=== PATIENT | female | born 1965 | race Caucasian/White ===

== ENCOUNTER 2018-11-28 11:44 | Inpatient (IN) | payer MEDICAID ==
[~2018-11-28] VITALS: Ht 152.4 cm; Wt 75.9 kg
[2018-11-28 13:23] LABS: Basophils # (auto) 0.1 uL; Eosinophils # (auto) 0 uL; Eosinophils % (auto) 0.3 % (0.0-7.0); Hematocrit 35.4 % (36.0-46.0); Hemoglobin 11.2 g/dL (12.2-16.2); Lymphocytes # (auto) 3.3 uL; Lymphocytes % (auto) 27.6 % (10.0-50.0); Mean Corpuscular Hemoglobin 27.4 pg (28.0-32.0); Mean Corpuscular Hgb Conc. 31.5 g/dL (32.0-36.0); Mean Corpuscular Volume 86.7 fL (80.0-100.0); Monocytes # (auto) 1.1 uL; Monocytes % (auto) 9.1 % (0.0-12.0); Neutrophils # (auto) 7.5 uL; Nucleated Red Blood Cells % 0.2 %; Platelet Count (auto) 370 10^3/uL (140-450); Red Blood Cells 4.08 10^6/uL (4.0-5.20)
[2018-11-28 13:42] LABS: Albumin 3.3 g/dL (3.4-5.0); Calcium 8.8 mg/dL (8.5-10.1); Potassium 3.8 mmol/L (3.5-5.1)
[2018-11-28 13:46] LABS: BUN/Creatinine Ratio 23.9; Bilirubin, Total 1.5 mg/dL (0.2-1.0); Total Protein 7.8 g/dL (6.4-8.2)
[2018-11-28 17:25] LABS: Urine Bacteria NONE SEEN /hpf (None Seen); Urine Blood Negative /uL (Negative); Urine Hyaline Cast FEW /lpf (0 - 2); Urine Mucus FEW (None Seen); Urine WBC 18 /hpf (0 - 5)
[2018-11-28 17:38] LABS: Alcohol, Urine < 3.0 mg/dL (0-5); Amphetamine Screen, Urine POSITIVE (NEGATIVE); Barbiturate Scree,Urine NEGATIVE (NEGATIVE); Benzodiazephine Screen, Urine NEGATIVE (NEGATIVE); Cannabinoid Screen, Urine NEGATIVE (NEGATIVE); Cocaine Screen, Urine NEGATIVE (NEGATIVE); Opiate Scree,Urine NEGATIVE (NEGATIVE); Phencyclidine Screen, Urine NEGATIVE (NEGATIVE)
[2018-11-28] MEDS ORDERED: MORPHINE SULFATE 4 MG/ML SYR/VIAL IV ONE (17:45)
[2018-11-28] MEDS ORDERED: ONDANSETRON HCL 4 MG/2 ML VIAL IV ONE (17:45)
[2018-11-28] MEDS ORDERED: cefTRIAXone 1GM/50ML D5W 50 ML IV ONE (18:30)
[2018-11-28] MEDS ORDERED: MORPHINE SULFATE 4 MG/ML SYR/VIAL IV PRN (18:30)
[2018-11-28] MEDS ORDERED: NITROGLYCERIN 0.4 MG SL TAB SL PRN (18:30)
[2018-11-28] MEDS ORDERED: LORazepam 0.5 MG TAB PO PRN (18:30)
[2018-11-28] MEDS ORDERED: SODIUM CHLORIDE 0.9% 1,000 ML IV ONE (18:30)
[2018-11-28] MEDS ORDERED: LORazepam 2MG/ML-1ML VIAL IV ONE (18:45)
[2018-11-28 19:18] LABS: CRP High Sensitivity 5.76 mg/dL (< 0.3)
[2018-11-28] MEDS: SODIUM CHLORIDE 0.9% 1,000 ML IV SCH (20:12)
[2018-11-28] MEDS: DILTIAZEM HCL 25 MG/5 ML VIAL IV ONE ×2 (21:17→21:23)
--- NOTE | 2018-11-29 01:05 | NUR ---
Telemetry admit from ER LIDIA OTT admitted to Telemetry unit. Patient oriented to MIGUEL ANGEL GONZALES [facility], primary RN, unit, room, bed, and unit policies regarding patient care and visiting hours. Patient now on continuous telemetry monitoring, tele box #44. Patient weighed by bedscale and encouraged to call if they need something. All questions and concerns addressed, patient verbalized understanding. Bed in lowest locked position, call light within reach, side rails up x2, fall precautions in place. Will continue to monitor Q1hr and PRN.
--- NOTE | 2018-11-29 01:10 | NUR ---
MARCOS called Patient converted into A-flutter. Per patient report, no history of cardiac dysrhythmias. Will perform EKG.
[2018-11-29 01:32] VITALS: BP 137/94
[2018-11-29] MEDS ORDERED: INFLUENZA QUAD 2018-2019 0.5 ML SYRG IM ONE (01:45)
[2018-11-29] MEDS ORDERED: PNEUMOCOCCAL VACC POLYS 25 MCG/0.5 ML VIAL IM ONE (01:45)
--- NOTE | 2018-11-29 02:07 | NUR ---
Spoke with hospitalist ALTHEA Sousa updated on patient's status. EKG strip taken to be signed off, EKG strip left with ALTHEA Sousa as per his request. No new orders received at this time. Continue care.
[2018-11-29 05:00] VITALS: BP 131/72
[2018-11-29] MEDS: SODIUM CHLORIDE 0.9% 1,000 ML IV SCH ×3 (05:39→19:25)
[2018-11-29 06:56] LABS: Basophils # (auto) 0 uL; Basophils % (auto) 0.5 % (0.0-2.0); Eosinophils # (auto) 0.1 uL; Eosinophils % (auto) 0.8 % (0.0-7.0); Hematocrit 33.7 % (36.0-46.0); Hemoglobin 10.8 g/dL (12.2-16.2); Lymphocytes # (auto) 2.8 uL; Lymphocytes % (auto) 31.3 % (10.0-50.0); Mean Corpuscular Hgb Conc. 32.1 g/dL (32.0-36.0); Mean Corpuscular Volume 87.2 fL (80.0-100.0); Monocytes # (auto) 0.9 uL; Monocytes % (auto) 9.9 % (0.0-12.0); Neutrophils # (auto) 5.2 uL; Neutrophils % (auto) 57.5 % (37.0-80.0); Nucleated Red Blood Cells % 0.4 %; Platelet Count (auto) 315 10^3/uL (140-450); Red Blood Cells 3.87 10^6/uL (4.0-5.20); Red Cell Distribution Width 16.2 % (11.8-14.3)
[2018-11-29 07:11] LABS: Potassium 3.9 mmol/L (3.5-5.1)
[2018-11-29 07:29] LABS: BUN/Creatinine Ratio 25.4; Bilirubin, Total 1.2 mg/dL (0.2-1.0); Calcium 7.9 mg/dL (8.5-10.1)
--- NOTE | 2018-11-29 07:30 | NUR ---
Opening Shift Note Assuming care of patient. Patient is awake, alert, and oriented x4. Patient shows no signs or symptoms of distress or shortness of breath. Patient is resting in bed. Bed is locked and lowered with side rails up x2. Patient denies pain at this time, but states that she is thirsty. Patient is aware of her nothing by mouth status until after her procedure later this morning. Instructed patient on the plan of care and to call for assistance as needed. Call light within reach. Will continue to monitor.
--- NOTE | 2018-11-29 08:00 | NUR ---
Re: feed research technician call Tele orthopedic tech has called. Patient's heart rate was in 190s about 30 minutes ago. Patient's heart rate is now 105. Patient is resting in bed and showing no signs or symptoms of distress. Will continue to monitor.
--- NOTE | 2018-11-29 08:12 | NUR ---
Re: Radiology call Radiology called at this time. Patient will be taken down for procedure at 0830.
--- NOTE | 2018-11-29 08:48 | NUR ---
Re: Patient off Unit Patient is currently off unit for procedure.
[2018-11-29 09:00] VITALS: BP 100/65
--- NOTE | 2018-11-29 09:08 | NUR ---
Re: Call from Radiology Radiology called at this time. New orders for coagulation studies. Will put orders in per protocol STAT at this time.
[2018-11-29] MEDS ORDERED: LIDOCAINE 2%HCL (LOCAL ANESTH.) INJ 20ML MDV ONE (09:17)
[2018-11-29 09:31] LABS: INR 1.21 (0.9-1.15); Prothrombin Time 12.8 sec (9.27-12.13)
--- NOTE | 2018-11-29 09:33 | NUR ---
Re: Patient NPO Status Spoke to patient about not having anything to eat or drink. She verbalized that she has been drinking Sprite, because she was so thirsty. Reinforced that she was not to have anything by mouth. Patient verbalized understanding. Called to quality tech area and notified them of patient drinking Sprite. Was told they would notify the Radiologist and let him determine if the procedure would still take place.
--- NOTE | 2018-11-29 09:36 | NUR ---
Re: Consents Patient does not want to sign consents at this time. She verbalized that procedure was not explained to her and wants to wait to sign consents.
[2018-11-29] MEDS: cefTRIAXone 1GM/50ML D5W 50 ML IV SCH (09:57)
[2018-11-29] MEDS: PANTOPRAZOLE 40 MG TAB PO SCH (09:57)
--- NOTE | 2018-11-29 10:15 | NUR ---
Re: Patient not NPO Let transporters know that Patient had sprite this morning, also documented on the checklist when patient's NPO status began.
--- NOTE | 2018-11-29 10:18 | NUR ---
Re: Patient off Unit Patient is being taken to laboratory specialist for procedure at this time.
[2018-11-29] MEDS ORDERED: MIDAZOLAM HCL 1MG/1ML-2 ML VIAL ONE (10:59)
[2018-11-29] MEDS ORDERED: fentaNYL CITRATE 100 MCG/2 ML VL ONE (10:59)
--- NOTE | 2018-11-29 12:21 | NUR ---
Re: Report received Report received from computer lab para professional. Will bring up patient soon.
--- NOTE | 2018-11-29 12:21 | NUR ---
Re: Report Received Report received at this time. Patient will be returning to unit from laborer landscape soon.
--- NOTE | 2018-11-29 13:30 | NUR ---
Re: Patient on Unit Patient is back on unit, resting in bed with eyes closed. Patient appears to have tolerated procedure well.
--- NOTE | 2018-11-29 13:33 | NUR ---
Re: Ambulation Patient has not ambulated. Patient has been on bedrest. Addendum: 11/29/18 at 1334 by KARINA HUNT RN RN Amended: Links added.
--- NOTE | 2018-11-29 15:30 | NUR ---
Re: Page to Page to in order to receive diet for patient. Patient is NPO at this time. Patient is becoming increasingly upset about not having anything to eat or drink, gave lemon glycerin swabs to prevent dryness of the mouth.
--- NOTE | 2018-11-29 16:14 | NUR ---
Re: Ambulation Patient ambulated to bathroom at this time, however, was not observed. Addendum: 11/29/18 at 1615 by KARINA HUNT RN RN Amended: Links added.
[2018-11-29 17:00] VITALS: BP 118/78
[2018-11-29] MEDS ORDERED: ENOXAPARIN SOD 80 MG/0.8ML SYRINGE SC STA (17:16)
--- NOTE | 2018-11-29 17:25 | NUR ---
Re: A-fib reading phlebotomy support tech called to notify that patient had converted to A-fib. Notified Dr. Alfred, he verbalized understanding and said to call on-call pulp bleacher.
--- NOTE | 2018-11-29 17:35 | NUR ---
Call to [facility] Left a message for the on-call golf club assembler at this time through answering service. Person taking the message states that the on-call golf club assembler will return my call as soon as possible.
--- NOTE | 2018-11-29 18:03 | NUR ---
Re: Page to hospitalist Paged creative consultant hospitalist at this time to notify of critical ABG value that was just reported. Awaiting callback.
--- NOTE | 2018-11-29 18:20 | NUR ---
Call back from . Dr. Costa called at this time. Notified him of critical carbon dioxide value from ABGs. Dr. Costa verbalized understanding. No new orders given at this time.
--- NOTE | 2018-11-29 18:36 | NUR ---
Re: Tube Output Nephro tube has 125 mL drainage emptied at this time.
[2018-11-29] MEDS ORDERED: IOHEXOL 350 MG/ML 100ML IJ ONE (18:40)
--- NOTE | 2018-11-29 18:41 | NUR ---
Re: Tech Call Tech area has called. Ready for patient to be taken for CT angio. Will disconnect patient at this time.
--- NOTE | 2018-11-29 18:48 | NUR ---
Closing Note Patient is resting in bed at this time. Patient is aware that she will be leaving to get CT angio in a little while. Will endorse care to the shift leader RN.
[2018-11-29] MEDS: MORPHINE SULFATE 4 MG/ML SYR/VIAL IV PRN (19:42)
--- NOTE | 2018-11-29 20:03 | NUR ---
REFUSED CT SCAN ONCE PT ARRIVED IN RADIOLOGY.PT SCREAMING AND CRYING AND WANTS TO GO BACK TO HER ROOM. DIRECTOR OF FIELD SERVICE AND SECURITY ESCORTED PT VIA BED BACK TO HER ROOM.
--- NOTE | 2018-11-29 20:38 | NUR ---
HEART RATE 155 WITH TWELVE LEAD EKG DONE;HOSPITALIST NOTIFIED WITH AN ORDER FOR TWO MG CARDIZIEM TO BE GIVEN IV;AND ADMINISTERED;HEART RATE NOW 117. WILL REQUEST VOICE STUDIES DIRECTOR CONSULT FROM HOSPITALIST.
[2018-11-29 20:57] VITALS: BP 134/98
[2018-11-29 21:00] VITALS: BP 136/80
[2018-11-29] MEDS ORDERED: DILTIAZEM HCL 25 MG/5 ML VIAL IV ONE (21:00)
[2018-11-30] MEDS: MORPHINE SULFATE 4 MG/ML SYR/VIAL IV PRN (04:30)
[2018-11-30] MEDS ORDERED: HALOPERIDOL LACTATE 5 MG/ML INJ VIAL IM PRN (05:45)
[2018-11-30] MEDS ORDERED: diphenhdrAMINE HCL 50 MG/1 ML VL IV ONE (05:45)
[2018-11-30] MEDS ORDERED: HALOPERIDOL LACTATE 5 MG/ML INJ VIAL ONE (05:48)
[2018-11-30] MEDS ORDERED: diphenhdrAMINE HCL 50 MG/1 ML VL ONE (05:48)
[2018-11-30 07:03] LABS: Albumin 2.7 g/dL (3.4-5.0); Potassium 3.5 mmol/L (3.5-5.1)
[2018-11-30 07:11] LABS: BUN/Creatinine Ratio 21.3; Bilirubin, Total 1.1 mg/dL (0.2-1.0); Total Protein 6.3 g/dL (6.4-8.2)
--- NOTE | 2018-11-30 08:00 | NUR ---
RECEIVED PT RESTING SLEEPING COMFORTABLY, CALL LIGHT WITHIN REACH, SITTER AT BED SIDE, NO PAIN OR DISTRESS NOTED OR REPORTED, WILL CONTINUE TO MONITOR PT.
[2018-11-30] MEDS ORDERED: IOHEXOL 350 MG/ML 100ML IJ ONE (08:59)
[2018-11-30 09:00] VITALS: BP 112/72
[2018-11-30] MEDS: PANTOPRAZOLE 40 MG TAB PO SCH (09:42)
[2018-11-30] MEDS: SODIUM CHLORIDE 0.9% 1,000 ML IV SCH ×3 (09:46→20:25)
[2018-11-30] MEDS: cefTRIAXone 1GM/50ML D5W 50 ML IV SCH (09:46)
[2018-11-30] MEDS ORDERED: VANCOMYCIN PER PHARMACY 0 MG IV SCH (10:45)
--- NOTE | 2018-11-30 11:23 | NUR ---
RECEIVED A CALL FROM RADIOLOGY TO REPORTS CT ANGIO RESULTS OF A SMALL RT LOWER LOBE PE, CALL AND SPOKE TO DR. BARTH, DOCTOR INFORMED OF CHEST CT RESULTS, ORDERS RECEIVED TO PLACE PT ON LOVENOX 1 MG/KG Q 12 HRS AND TO MONITOR FOR BLEEDING.
[2018-11-30] MEDS ORDERED: VANCOMYCIN 1GM/250ML 250 ML IV ONE (12:30)
[2018-11-30 13:00] VITALS: BP 109/69
[2018-11-30 17:53] VITALS: BP 107/68
--- NOTE | 2018-11-30 19:30 | NUR ---
Opening Shift Note Assumed care of patient, resting, No S/S of distress/SOB or pain pt will awake in and out and sit in bed. Sitter at bedside for safety. Instructed on POC and to call for assist PRN, will continue to monitor for changes Q1hr and PRN. Bed locked and in lowest position, call light within reach. pt on 2 l NC, but pt will remove oxygen, instructed that pt needs to maintain oxygen on. reinforcement needed, will continue to monitor pt.
[2018-11-30] MEDS: ENOXAPARIN SOD 80 MG/0.8ML SYRINGE SC SCH (21:37)
--- NOTE | 2018-11-30 21:42 | NUR ---
Re: Tube Output Nephro tube has 125 mL drainage emptied at this time.
[2018-11-30] MEDS: LORazepam 2MG/ML-1ML VIAL IV PRN (21:45)
--- NOTE | 2018-11-30 21:51 | NUR ---
MRSA SWAB SENT TO LAB
[2018-11-30 22:00] VITALS: BP 109/70
--- NOTE | 2018-11-30 22:50 | NUR ---
MARCOS CALL Pt run of Vta Vitals were obtain are as following BP 110/67 HR 91 spo2 93%, when assess pt, pt was sleeping asymptomatic no complains of chest pain, pt still on 3 L NC . 12 ekg lead done stated NSR , prolonged QT, nonspecific st and t wave abnormality, possible left atrial enlargement. will notify hospitalist . will continue to monitor pt
--- NOTE | 2018-12-01 00:03 | NUR ---
ALYCE HOSPITALIST Alyced hospitalist in regards to pt run of [facility] EKG 12 lead done NSR , prolonged QT, nonspecific st and t wave abornmaility, possible left atrial enlargement per 12 lead ekg Vitals were obtain are as following BP 110/67 HR 91 spo2 93%, when assess pt, pt was sleeping asymptomatic no complains of chest pain, pt still on 3 L NC . will continue to monitor pt
[2018-12-01] MEDS: MORPHINE SULFATE 4 MG/ML SYR/VIAL IV PRN ×4 (01:11→20:32)
--- NOTE | 2018-12-01 01:53 | NUR ---
HOSPITALIST CALL BACK TELEPHONE READ BACK Lab for Magnesium Cardio Consult for run of vtach will continue to monitor pt.
[2018-12-01 02:47] LABS: Basophils # (auto) 0.1 uL; Basophils % (auto) 0.9 % (0.0-2.0); Eosinophils # (auto) 0.1 uL; Eosinophils % (auto) 1.6 % (0.0-7.0); Hematocrit 30.3 % (36.0-46.0); Hemoglobin 9.7 g/dL (12.2-16.2); Lymphocytes # (auto) 1.9 uL; Lymphocytes % (auto) 24.2 % (10.0-50.0); Mean Corpuscular Hemoglobin 28.2 pg (28.0-32.0); Mean Corpuscular Volume 88.1 fL (80.0-100.0); Monocytes # (auto) 0.7 uL; Monocytes % (auto) 9.1 % (0.0-12.0); Neutrophils % (auto) 64.2 % (37.0-80.0); Nucleated Red Blood Cells % 0.1 %; Platelet Count (auto) 210 10^3/uL (140-450); Red Blood Cells 3.44 10^6/uL (4.0-5.20); Red Cell Distribution Width 16.4 % (11.8-14.3); White Blood Cell 7.8 10^3/uL (4.4-10.8)
[2018-12-01 02:53] LABS: BUN/Creatinine Ratio 21.8; Calcium 7.5 mg/dL (8.5-10.1); Potassium 3.6 mmol/L (3.5-5.1)
[2018-12-01] MEDS: SODIUM CHLORIDE 0.9% 1,000 ML IV SCH ×3 (04:45→21:36)
[2018-12-01 05:00] VITALS: BP 124/70
--- NOTE | 2018-12-01 08:00 | NUR ---
RECEIVED PT RESTING IN BED, CALL LIGHT WITH IN REACH, SITTER AT BED SIDE, PT PLACED BACK ON IV FLUIDS, FROST DRAINING TO GRAVITY, NEPHROSTOMY DRAINING WELL TO GRAVITY, RT BACK DRESSING CLEAN AND DRY. WILL CONTINUE TO MONITOR PT.
[2018-12-01 08:30] VITALS: BP 118/72
[2018-12-01] MEDS: cefTRIAXone 1GM/50ML D5W 50 ML IV SCH (09:49)
[2018-12-01] MEDS: PANTOPRAZOLE 40 MG TAB PO SCH (09:50)
[2018-12-01] MEDS: ENOXAPARIN SOD 80 MG/0.8ML SYRINGE SC SCH ×2 (09:50→21:37)
[2018-12-01] MEDS: VANCOMYCIN 1GM/250ML 250 ML IV SCH (09:50)
[2018-12-01] MEDS: HALOPERIDOL LACTATE 5 MG/ML INJ VIAL IM PRN ×2 (10:16→18:11)
--- NOTE | 2018-12-01 10:20 | NUR ---
PATTERNMAKER BENCH AT BED SIDE, ATTEMPTED TO BLE VENOUS US, PT MOVING AROUND AND PULLING HER EXTREMITIES, PATTERNMAKER BENCH WILL ATTEMPT TO PERFORM TEST LATER.
[2018-12-01] MEDS ORDERED: POTASSIUM CHL 20 Meq TABLET PO ONE (11:45)
[2018-12-01] MEDS: MAGNESIUM SULFATE 1GM/100ML 100 ML IV SCH ×4 (12:23→15:00)
[2018-12-01] MEDS: LORazepam 2MG/ML-1ML VIAL IV PRN ×2 (13:04→20:31)
--- NOTE | 2018-12-01 14:29 | NUR ---
NUTRITION ASSESSMENT NOTES Please refer to link notes of nutrition screen form filed under the intervention section of the plan of care for further details. Est. Needs: 1450 kcal to 1800 kcal (20-25 kcal/kgBW), 58 gms to 73 gms pro (0.8-1.0 gms/kgBW). Will continue to monitor pertinent labs and reassess nutrient needs prn Thank you. Addendum: 12/01/18 at [address] Amended: Links added.
--- NOTE | 2018-12-01 15:29 | NUR ---
TORCH OPERATOR AT BED SIDE, ATTEMPTED TO DO BLE VENOUS US, PT MOVING AROUND AND PULLING HER EXTREMITIES, SITTING UP AND NOT FOLLOWING DIRECTIONS. UNABLE TO PERFORM ULTRASOUND TEST.
[2018-12-01] MEDS: POTASSIUM CHL 20MEQ/100ML 100 ML IV SCH ×2 (15:39→22:47)
--- NOTE | 2018-12-01 15:57 | NUR ---
PT MOANING AND MAKING FACIAL EXPRESSIONS OP PAIN, PT MEDICATED ORDER FOR PAIN. SITTER AT BED SIDE, WILL CONTINUE TO MONITOR PT.
[2018-12-01] MEDS ORDERED: diphenhdrAMINE HCL 50 MG/1 ML VL IV ONE (17:15)
--- NOTE | 2018-12-01 17:20 | NUR ---
CALLED HOSPITALIST AND INFORMED THAT PT IS VERY AGITATED, PT IS SCREAMING, ATTEMPTING TO GET OUT OF BED, PT ATTEMPTING TO HIT SITTER AND NURSES, HOSPITALIST INFORMED THE MEDICATIONS GIVEN AND THEIR NEXT DUE TIME, ORDERS GIVEN TO GIVE A ONE TIME DOSE OF BENADRYL 50 MG IV X1,
--- NOTE | 2018-12-01 17:50 | NUR ---
PT PULLED IV, PT AGITATED, PT ASSISTED BACK TO BED, SITTER AT BED SIDE, ATTEMPTED TO INSERT A NEW IV, PT SCREAMING, PULLING HER ARMS, AND NOT FOLLOWING DIRECTION, WILL ATTEMPT LATER.
--- NOTE | 2018-12-01 18:30 | NUR ---
CARMITA / BOYFRIEND AT BED SIDE, PT'S BOYFRIEND HELPING PT EAT, PT IS MORE RELAX, SITTER AT BED SIDE, WILL CONTINUE TO MONITOR PT.
--- NOTE | 2018-12-01 19:25 | NUR ---
Opening Shift Note Received report from Annette MURRIETA. Assumed care of patient, awake and alert, agitated and combative, pulled out the IV. Boyfriend and sitter at bedside. In moderate distress and pain. Instructed on POC and to call for assist PRN. Fall precaution measures in place, will continue to monitor for changes Q1hr and PRN.
--- NOTE | 2018-12-01 20:25 | NUR ---
IV insertion IV access obtained, via clean sterile technique by inserting 22 gauge catheter at R wrist after 2 attempt(s). IV secured properly, mittens placed as patient is very combative and pulls out IV prior. No trauma to site.
[2018-12-01 20:43] VITALS: BP 128/83
[2018-12-01 22:00] VITALS: BP 122/83
[2018-12-01] MEDS ORDERED: POTASSIUM CHL 20MEQ/100ML 100 ML IV ONE (22:46)
[2018-12-02] MEDS: VANCOMYCIN 1GM/250ML 250 ML IV SCH ×2 (03:37→21:48)
[2018-12-02] MEDS: MORPHINE SULFATE 4 MG/ML SYR/VIAL IV PRN ×3 (03:37→17:20)
[2018-12-02] MEDS: HALOPERIDOL LACTATE 5 MG/ML INJ VIAL IM PRN ×2 (04:12→23:29)
--- NOTE | 2018-12-02 04:12 | NUR ---
Patient became agitated and combative again, Haldol 2.5mg IM given. Will continue to monitor.
[2018-12-02 04:17] VITALS: BP 109/72
[2018-12-02] MEDS: SODIUM CHLORIDE 0.9% 1,000 ML IV SCH ×2 (06:14→16:18)
--- NOTE | 2018-12-02 07:10 | NUR ---
Patient resting at this time, sitter at bedside for safety. Endorsed care to Annette MURRIETA.
--- NOTE | 2018-12-02 08:00 | NUR ---
RECEIVED PT RESTING IN BED, CALL LIGHT WITHIN REACH, PT ASLEEP, SITTER AT BED SIDE, NEPHROSTOMY TUBE IN PLACE AND DRAINING, FROST DRAINING TO GRAVITY, WILL CONTINUE TO MONITOR PT.
--- NOTE | 2018-12-02 08:35 | NUR ---
PAGED HOSPITALIST TO INFORM THE HEAD CT SCAN, AWAITING CALL BACK.
[2018-12-02 09:00] VITALS: BP 143/83
[2018-12-02] MEDS: PANTOPRAZOLE 40 MG/10 ML VIAL IV SCH (09:12)
[2018-12-02] MEDS: ENOXAPARIN SOD 80 MG/0.8ML SYRINGE SC SCH ×2 (09:12→21:48)
[2018-12-02] MEDS: cefTRIAXone 1GM/50ML D5W 50 ML IV SCH (09:12)
[2018-12-02] MEDS: LORazepam 2MG/ML-1ML VIAL IV PRN ×2 (09:12→19:50)
--- NOTE | 2018-12-02 09:20 | NUR ---
DIRECTOR DIGITAL ANALYTICS AT BED SIDE TO PERFORM THE ECHO, PT MOVING AROUND, NOT FOLLOWING INSTRUCTIONS, ATTEMPTING TO GET OUT OF BED, PT UNSTEADY, AND SCREAMING, WILL MEDICATE ORDER. SITTER AT BED SIDE.
[2018-12-02 10:30] LABS: Basophils # (auto) 0.1 uL; Basophils % (auto) 0.7 % (0.0-2.0); Eosinophils # (auto) 0.1 uL; Eosinophils % (auto) 1.5 % (0.0-7.0); Hematocrit 31.1 % (36.0-46.0); Lymphocytes % (auto) 20.7 % (10.0-50.0); Mean Corpuscular Hemoglobin 28.4 pg (28.0-32.0); Mean Corpuscular Hgb Conc. 32.2 g/dL (32.0-36.0); Mean Corpuscular Volume 88.2 fL (80.0-100.0); Monocytes # (auto) 1.3 uL; Monocytes % (auto) 13.4 % (0.0-12.0); Neutrophils # (auto) 6.3 uL; Neutrophils % (auto) 63.7 % (37.0-80.0); Nucleated Red Blood Cells % 0.2 %; Platelet Count (auto) 236 10^3/uL (140-450); Red Blood Cells 3.53 10^6/uL (4.0-5.20); Red Cell Distribution Width 17.1 % (11.8-14.3); White Blood Cell 9.9 10^3/uL (4.4-10.8)
--- NOTE | 2018-12-02 10:40 | NUR ---
CALLED DR. ZARCO TO INFORM HIM THAT HE ORDERED 4 BAGS OF MAGNESIUM, 2 BAGS WERE GIVEN YESTERDAY, PT BECAME AGITATED AND PULL HER IV, AFTER THE IV WAS PLACED THE MAG ORDER AND CUSTOM MILLER WAS NOT ABLE TO GIVEN THE LAST 2 BAGS OF MAG, ORDERS RECEIVED TO PLACE THE ORDER AGAIN FOR THE OTHER 2 BAGS OF MAG.
[2018-12-02 10:52] LABS: Albumin 2.5 g/dL (3.4-5.0); Calcium 7.6 mg/dL (8.5-10.1); Potassium 3.9 mmol/L (3.5-5.1)
[2018-12-02 10:54] LABS: Hepatitis B Surface Antibody Negative
[2018-12-02 10:55] LABS: BUN/Creatinine Ratio 14.5; Bilirubin, Total 0.8 mg/dL (0.2-1.0); Total Protein 6.3 g/dL (6.4-8.2)
[2018-12-02 11:23] LABS: Hepatitis A Total Antibody Negative
[2018-12-02] MEDS: MAGNESIUM SULFATE 1GM/100ML 100 ML IV SCH ×2 (11:48→12:50)
[2018-12-02 12:47] LABS: Hepatitis B Core Total AB Negative
[2018-12-02 12:48] LABS: Hepatitis B Surface Antigen Negative (Negative); Hepatitis C Antibody Negative (Negative)
[2018-12-02 13:00] VITALS: BP 132/80
[2018-12-02 17:53] VITALS: BP 127/99
--- NOTE | 2018-12-02 19:10 | NUR ---
Opening Shift Note Received report from Annette MURRIETA. Assumed care of patient, awake but non verbal, sitter at bedside for safety. No S/S of distress/SOB or pain. Instructed on POC and to call for assist PRN, will continue to monitor for changes Q1hr and PRN.
[2018-12-02 21:44] VITALS: BP 117/85
--- NOTE | 2018-12-02 23:29 | NUR ---
Patient is awake became agitated and combative, rolling all over the bed, hitting the nurse and CNAs. Haldol IM given, will continue to monitor.
[2018-12-03] MEDS: MORPHINE SULFATE 4 MG/ML SYR/VIAL IV PRN (00:53)
[2018-12-03] MEDS: SODIUM CHLORIDE 0.9% 1,000 ML IV SCH ×4 (00:54→23:25)
[2018-12-03 04:51] VITALS: BP 112/65
--- NOTE | 2018-12-03 05:40 | NUR ---
Transfer to [facility] unit room 250b with sitter at bedside. Switched to tele box 15 but patient confused, agitated, and aggressive. Will not keep tele box on. MARCOS notified.
--- NOTE | 2018-12-03 06:51 | NUR ---
Placed patient on NPO, but unable to sign the consent for LHC as patient is confused, agitated and combative. Endorsed care to day shift RN.
[2018-12-03] MEDS: LORazepam 2MG/ML-1ML VIAL IV PRN ×3 (06:52→20:58)
--- NOTE | 2018-12-03 08:30 | NUR ---
Opening Shift Note Assumed care of patient, awake and asleep and confusion. No S/S of distress/SOB or pain. Provide a sitter at bedside, no any injuries noted. Instructed on POC and to call for assist PRN, will continue to monitor for changes Q1hr and PRN.
[2018-12-03 08:33] LABS: Basophils # (auto) 0.1 uL; Eosinophils # (auto) 0 uL; Eosinophils % (auto) 0.2 % (0.0-7.0); Hematocrit 33.1 % (36.0-46.0); Hemoglobin 10.5 g/dL (12.2-16.2); Lymphocytes # (auto) 1.2 uL; Lymphocytes % (auto) 10.4 % (10.0-50.0); Mean Corpuscular Hemoglobin 27.7 pg (28.0-32.0); Mean Corpuscular Hgb Conc. 31.7 g/dL (32.0-36.0); Mean Corpuscular Volume 87.4 fL (80.0-100.0); Monocytes # (auto) 1.6 uL; Monocytes % (auto) 13.8 % (0.0-12.0); Neutrophils # (auto) 8.5 uL; Neutrophils % (auto) 74.6 % (37.0-80.0); Nucleated Red Blood Cells % 0.3 %; Platelet Count (auto) 320 10^3/uL (140-450); Red Blood Cells 3.79 10^6/uL (4.0-5.20); Red Cell Distribution Width 17.4 % (11.8-14.3); White Blood Cell 11.4 10^3/uL (4.4-10.8)
[2018-12-03 08:51] LABS: Albumin 2.8 g/dL (3.4-5.0); Calcium 8.3 mg/dL (8.5-10.1); Potassium 4.8 mmol/L (3.5-5.1)
[2018-12-03 09:00] LABS: BUN/Creatinine Ratio 13.2; Bilirubin, Total 1.8 mg/dL (0.2-1.0); Total Protein 6.6 g/dL (6.4-8.2)
[2018-12-03] MEDS: cefTRIAXone 1GM/50ML D5W 50 ML IV SCH (09:20)
[2018-12-03] MEDS: PANTOPRAZOLE 40 MG/10 ML VIAL IV SCH (09:20)
[2018-12-03] MEDS: ENOXAPARIN SOD 80 MG/0.8ML SYRINGE SC SCH ×2 (09:21→22:09)
[2018-12-03] MEDS: HALOPERIDOL LACTATE 5 MG/ML INJ VIAL IM PRN (09:34)
[2018-12-03] MEDS ORDERED: ASPirin 81 mg TAB PO SCH (10:00)
--- NOTE | 2018-12-03 10:36 | NUR ---
IV insertion IV access obtained, via clean sterile technique by inserting 20 gauge catheter at after attempt(s) EACH ARM. IV secured properly. No trauma to site. Patient tolerated procedure well.
--- NOTE | 2018-12-03 10:55 | NUR ---
Called CARMITA (BOYFRIEND) REGARDING PATIENT HAS HEART CATH SCHEDULE TODAY. AWAITING TO CALL BACK.
--- NOTE | 2018-12-03 11:02 | NUR ---
Sinter Press Operator notified regarding consent form has not been signed.
--- NOTE | 2018-12-03 11:25 | NUR ---
paged regarding a consent form,awaiting to call back.
--- NOTE | 2018-12-03 11:26 | NUR ---
Called Boyfriend again # [phone], left a message.
[2018-12-03] MEDS ORDERED: HEPARIN IN NS 1000Units/500mL 0 ML ONE (11:48)
[2018-12-03] MEDS ORDERED: LIDOCAINE 2%HCL (LOCAL ANESTH.) INJ 20ML MDV ONE (11:48)
[2018-12-03] MEDS ORDERED: IOHEXOL 350 MG/ML 100ML IJ ONE (11:48)
--- NOTE | 2018-12-03 11:49 | NUR ---
Dr. Martinez paged again, awaiting to call back.
--- NOTE | 2018-12-03 12:16 | NUR ---
Dr. Alfred paged on the 3rd time, awaiting to call back.
--- NOTE | 2018-12-03 12:30 | NUR ---
Dr. Alfred called back and will sign consent.
--- NOTE | 2018-12-03 12:35 | NUR ---
Dr. Alfred and Dr. Villalba co-sign a consent form for heart cath.
--- NOTE | 2018-12-03 12:40 | NUR ---
Patient off unit to lock corner machine operator.
--- NOTE | 2018-12-03 13:00 | NUR ---
Patient came back to the floor, intervention has not been done regarding patient's behavior.
--- NOTE | 2018-12-03 14:36 | NUR ---
Nutrition Follow-up Notes Wt.: 74.2 kg Pt was off the floor with no family by beside. per records pt to have cardiac cath today. pt is currently confused on clear liq diet wth inadequte PO of 0% x 4 per RN doc due to pt`s mental status Est. Needs: 1450 kcal to 1800 kcal (20-25 kcal/kgBW), 58 gms to 73 gms pro (0.8-1.0 gms/kgBW). Will continue to monitor pertinent labs and reassess nutrient needs prn Labs: CREAT 1.36 H, CA 8.3 L, YASMIN 1.8 H, ALB 2.8 L Skin: Santana scale 15, mod risk, skin intact per RN doc GI: Pt has no BM reported per office clerk. PES: Altered nutrition related lab values r/t current/chronic medical condition aeb hyperglycemia, hypocapnia,hyperchloremia, elev. BUN, LFTs, hyperbilirubinemia, hypocalcemia and mod hypoalbuminemia Increased nutrient needs r.t chronic current medical condition aeb ALOC. mod hypoalbuminemia, Acute abdominal pain,Elevated liver enzymes,Clear Liquid diet Will continue to monitor PO intake, skin status, pertinent labs and weight trend. F/u in 2-3 days. Rec.: 1.) Advance gradually oral diet (Soft Low Chol, Low Fat diet) when medically appropriate. 2.) If Albumin level continues trending down, consider Prostat 1 pkt BID. 3.) Consider close supervision and feeding assistance prn during meals 4.) Refer to RD for further nutrition educ. and weight monitoring upon discharge. 5.) Continue current plan of care.
--- NOTE | 2018-12-03 15:15 | NUR ---
Dr. Martinez made aware that patient did not get heart cath.
[2018-12-03 15:19] LABS: Albumin 2.7 g/dL (3.4-5.0); Bilirubin, Direct 0.9 mg/dL (0-0.2)
[2018-12-03 15:21] LABS: Bilirubin, Total 1.8 mg/dL (0.2-1.0); Total Protein 6.5 g/dL (6.4-8.2)
[2018-12-03] MEDS ORDERED: HALOPERIDOL LACTATE 5 MG/ML INJ VIAL IV PRN (15:30)
[2018-12-03] MEDS: VANCOMYCIN 1GM/250ML 250 ML IV SCH (16:00)
--- NOTE | 2018-12-03 16:30 | NUR ---
Dr. Conte and Dr. Monreal at bedside , received new order, noted and carried out.
[2018-12-03 17:52] LABS: INR 1.72 (0.9-1.15); Prothrombin Time 17.8 sec (9.27-12.13)
--- NOTE | 2018-12-03 18:55 | NUR ---
Empty 100 ml of clear yellow fluid from nephrotomy tube.
--- NOTE | 2018-12-03 19:30 | NUR ---
PM ASSESSMENT PT AGITATED, CONFUSED, UNCOOPERATIVE. NO SOB OR DISTRESS. HOB ELEVATED. SITTER AT BEDSIDE. NEPHROSTOMY TUBE ON RT SIDE W/ BAG DRAINING VIA GRAVITY W/ YELLOW URINE. FROST CATHETER DRAINING VIA GRAVITY W/ DARK FERNY URINE. RESTRAINTS BUE W/ GOOD CIRCULATION. SAFETY PRECAUTIONS IN PLACE. WILL CONTINUE TO MONITOR.
[2018-12-03] MEDS ORDERED: LACTULOSE 20Gm/30ML SOLN PO ONE (20:30)
[2018-12-03] MEDS: PROMETHAZINE HCL 25 MG/ML 1ML IV PRN (20:59)
[2018-12-03] MEDS ORDERED: LACTULOSE 20Gm/30ML SOLN PR ONE (21:00)
[2018-12-03] MEDS ORDERED: INFLUENZA QUAD 2018-2019 0.5 ML SYRG IM ONE (21:01)
[2018-12-03 22:00] VITALS: BP 149/89
--- NOTE | 2018-12-03 22:51 | NUR ---
Pt. placed in soft restraints LIDIA OTT extremely agitated, pulling at lines or tubes. All comfort measures failed including reorientation, pain management, decreased stimuli, diversions/distractions, family involvement, and bathroom necessity. Mohamud LEAL NP notified and order for soft restraints obtained. Patient/Family educated on need for restraints, including safety precautions. Restraints placed, see Restraint assessment for further charting.
[2018-12-03] MEDS ORDERED: PNEUMOCOCCAL VACC POLYS 25 MCG/0.5 ML VIAL ONE (22:56)
[2018-12-03] MEDS ORDERED: diphenhdrAMINE HCL 50 MG/1 ML VL IV ONE (23:30)
--- NOTE | 2018-12-04 00:51 | NUR ---
CONTINUED in soft restraints TRU,LIDIA extremely agitated, pulling at lines or tubes. All comfort measures failed including reorientation, pain management, decreased stimuli, diversions/distractions, family involvement, and bathroom necessity. Restraints placed w/ good circulation, see Restraint assessment for further charting.
--- NOTE | 2018-12-04 01:14 | NUR ---
LACTULOSE TRIED A FEW TIMES WHILE PT CALM, HOWEVER SEVERAL ATTEMPTS WERE UNSUCCESSFUL D/T PT GETTING AGITATED AND PUSHING OUT RECTAL MED AND ENEMA. HOSPITALIST NOTIFIED.
[2018-12-04 05:00] VITALS: BP 157/75
[2018-12-04 05:59] LABS: Albumin 2.8 g/dL (3.4-5.0); BUN/Creatinine Ratio 17.9; Calcium 8.3 mg/dL (8.5-10.1); Potassium 4.9 mmol/L (3.5-5.1)
[2018-12-04 06:09] LABS: Bilirubin, Total 2.8 mg/dL (0.2-1.0); Total Protein 6.5 g/dL (6.4-8.2)
--- NOTE | 2018-12-04 06:57 | NUR ---
am lab results notified hospitalist everardo acosta np, of abnormal labs, states will look over chart.
[2018-12-04] MEDS ORDERED: D5W 5% 1,000 ML IV SCH (07:15)
[2018-12-04] MEDS ORDERED: LACTULOSE 20Gm/30ML SOLN PR ONE (07:15)
[2018-12-04] MEDS: MORPHINE SULFATE 4 MG/ML SYR/VIAL IV PRN ×2 (08:10→13:08)
--- NOTE | 2018-12-04 08:13 | NUR ---
paged elevator operator service SUPPLIES NEEDED TO INSERT RECTAL TUBE TO ADMINISTER LACTULOSE
[2018-12-04 08:45] VITALS: BP 131/78
[2018-12-04 08:52] VITALS: BP 131/78
--- NOTE | 2018-12-04 09:30 | NUR ---
RECTAL TUBE INSERTED PATIENT TOLERATED WELL. ADMINISTERED LACTULOSE ORDERED MD.
[2018-12-04] MEDS: cefTRIAXone 1GM/50ML D5W 50 ML IV SCH (09:47)
--- NOTE | 2018-12-04 09:52 | NUR ---
RECTAL TUBE NO LONGE Addendum: 12/04/18 at 0956 by LUAN BARLOW RN RECTAL TUBE REMOVED BY PATIENT FOLLOWING ADMINISTRATION OF GA MED PATIENT CONTINUED TO BARE DOWN AND PUSHED OUT THE TUBE, BALLOON INTACT. NO TRAUMA TO THE SITE.
[2018-12-04] MEDS: PANTOPRAZOLE 40 MG/10 ML VIAL IV SCH (10:00)
[2018-12-04 12:30] VITALS: BP 121/61
[2018-12-04] MEDS: SODIUM BICARBONATE 50ML VIAL 50 ML in SOD CHL 0.45% 1,000 ML IV SCH ×2 (13:08→23:42)
--- NOTE | 2018-12-04 13:11 | NUR ---
NG TUBE PLACED 12F NG TUBE INSERTED TO THE RIGHT NARE PATIENT TOLERATED WELL; STAT CHEST XRAY ORDERED.
[2018-12-04] MEDS: LACTULOSE 20Gm/30ML SOLN PO SCH ×5 (15:00→18:57)
--- NOTE | 2018-12-04 15:00 | NUR ---
LACTULOSE GIVEN ORDERED VIA NG TUB PATIENT TOLERATED WELL.
--- NOTE | 2018-12-04 15:00 | NUR ---
NG TUBE PLACEMENT SUCCESSFUL CONFIRMED WITH CHEST XRAY AND AUSCULTATION 12F IN RIGHT NARE AT 54CM.
--- NOTE | 2018-12-04 16:00 | NUR ---
LACTULOSE GIVEN ORDERED VIA NG TUB PATIENT TOLERATED WELL.
[2018-12-04] MEDS: ENOXAPARIN SOD 80 MG/0.8ML SYRINGE SC SCH ×2 (16:18→21:37)
[2018-12-04 17:48] VITALS: BP 117/71
--- NOTE | 2018-12-04 19:30 | NUR ---
Bowel Movement Noted Patient had large BM, hygiene care performed with complete linen change, and z-guard applied. will continue with Lactulose 30cc q8hrs per dose instruction per orders.
--- NOTE | 2018-12-04 19:35 | NUR ---
Opening Shift Note Assumed care of patient, patient lying in bed with eyes closed, does not answer questions or follows direction, oriented patient to place and situation. On room air with even and unlabored respirations. NGT to right nare secured in place. Soft restraints in place to bilateral wrist. Skin intact. Circulation WNL. Whelan intact and draining to gravity with dark melina urine. Right nephrostomy intact. IV to left FA intact and patent. IV to right wrist intact and patent infusing .45%NS with 50mL sodium bicarb at 75mL/hr. Patient turned with max assist. Patient had large BM, hygiene care performed with complete linen change and z-guard applied. Bed low locked position with side rails up x 2 and call light within reach. sitter at bedside. will continue to monitor for changes Q1hr and PRN.
--- NOTE | 2018-12-04 20:00 | NUR ---
Patient continued in soft restraints TRU,LIDIA agitated, pulling at lines and tubes medically necessary for treatment, risk for fall and non compliant with safety instructions. All comfort measures failed including reorientation, pain management, decreased stimuli, diversions/distractions, and bathroom necessity. Soft wrist restraints in place to bilateral wrist with proper fitting. Skin intact, no redness noted. Circulation assessed, positive tissue perfusion and WNL. Needs assessment met. Sitter at bedside. See Restraint assessment for further charting.
[2018-12-04 22:00] VITALS: BP 107/68
--- NOTE | 2018-12-04 22:00 | NUR ---
Patient continued in soft restraints TRU,LIDIA pulling at lines and tubes medically necessary for treatment, risk for fall and non compliant with safety instructions. All comfort measures failed including reorientation, pain management, decreased stimuli, diversions/distractions, and bathroom necessity. Soft wrist restraints in place to bilateral wrist with proper fitting. Skin intact, no redness noted. Circulation assessed, positive tissue perfusion and WNL. Needs assessment met. Sitter at bedside. See Restraint assessment for further charting.
[2018-12-05] MEDS: MORPHINE SULFATE 4 MG/ML SYR/VIAL IV PRN ×2 (01:25→21:54)
--- NOTE | 2018-12-05 01:57 | NUR ---
Patient has converted to Sinus rhythm in 90s. Addendum: 12/06/18 at 0226 by JOHN PAUL PARSONS RN Wrong time. Disregard
[2018-12-05] MEDS ORDERED: LACTULOSE 20Gm/30ML SOLN PO SCH ×3 (03:30→12:00)
[2018-12-05 05:03] VITALS: BP 123/58
[2018-12-05 05:08] LABS: Basophils # (auto) 0.1 uL; Eosinophils # (auto) 0.2 uL; Eosinophils % (auto) 1.2 % (0.0-7.0); Hematocrit 32.6 % (36.0-46.0); Hemoglobin 10.1 g/dL (12.2-16.2); Lymphocytes # (auto) 2.8 uL; Mean Corpuscular Hemoglobin 27.6 pg (28.0-32.0); Mean Corpuscular Volume 88.8 fL (80.0-100.0); Monocytes # (auto) 0.9 uL; Monocytes % (auto) 6.3 % (0.0-12.0); Neutrophils # (auto) 10.7 uL; Neutrophils % (auto) 72.5 % (37.0-80.0); Nucleated Red Blood Cells % 0.2 %; Platelet Count (auto) 227 10^3/uL (140-450); Red Blood Cells 3.67 10^6/uL (4.0-5.20); White Blood Cell 14.8 10^3/uL (4.4-10.8)
[2018-12-05 05:40] LABS: BUN/Creatinine Ratio 28.6; Calcium 7.9 mg/dL (8.5-10.1)
--- NOTE | 2018-12-05 07:30 | NUR ---
Closing Note Patient lying in bed with eyes closed. On room air with even and unlabored respirations. NGT to right nare secured in place. Soft restraints in place to bilateral wrist. Patient agitated, kicking, risk for fall and attempting to get out of bed, non compliant with safety instructions. Skin intact. Circulation WNL. Whelan intact and draining to gravity with dark melina urine. Right nephrostomy intact. IV to left FA intact and patent. IV to right wrist intact and patent infusing .45%NS with 50mL sodium bicarb at 75mL/hr. Patient turned with max assist. Bed low locked position with side rails up x 2 and call light within reach. sitter at bedside. Endorsed care to day shift LIT Marquez.
--- NOTE | 2018-12-05 08:00 | NUR ---
Patient on soft wrist restraints note. LIDIA OTT very confused,restless pulling out IV, non compliant with treatment regimen. All comfort measures failed including reorientation, pain management, decreased stimuli, diversions/distractions, family involvement, and bathroom necessity. Patient on wrist restraints as ordered. Patient/Family educated on need for restraints, including safety precautions. Sitter at bedside. Restraints placed, see Restraint assessment for further charting.
[2018-12-05 09:00] VITALS: BP 156/94
[2018-12-05 09:23] LABS: Albumin 2.6 g/dL (3.4-5.0); Bilirubin, Direct 0.9 mg/dL (0-0.2)
[2018-12-05 09:32] LABS: Bilirubin, Total 1.6 mg/dL (0.2-1.0); Total Protein 6.1 g/dL (6.4-8.2)
[2018-12-05] MEDS: PANTOPRAZOLE 40 MG/10 ML VIAL IV SCH (09:52)
[2018-12-05] MEDS: ENOXAPARIN SOD 80 MG/0.8ML SYRINGE SC SCH ×2 (09:52→21:04)
[2018-12-05] MEDS: cefTRIAXone 1GM/50ML D5W 50 ML IV SCH (09:53)
--- NOTE | 2018-12-05 10:00 | NUR ---
Pt on continuous soft wrist restraints note. TRU,LIDIA restless/agitated, trying to get out of the bed, pulling out of lines and tubes, fall risk, non-compliant with treatment. All comfort measures failed including reorientation, pain management, decreased stimuli, diversions/distractions, family involvement, and bathroom necessity. Patient on continuous bilateral soft wrist restraints, skin assessment done dry and intact, with good tissue perfusion including safety precautions. Sitter at bedside. See Restraint assessment for further charting.
[2018-12-05] MEDS: LORazepam 2MG/ML-1ML VIAL IV PRN ×2 (10:46→23:53)
--- NOTE | 2018-12-05 11:15 | NUR ---
Patient very restless still, HR-150's-170's. Unable to do EKG on her due to agitation. Paged Dr. Alfred and returned call. Orders received. May give another dose of Ativan 1mg IV. Will continue care.
[2018-12-05] MEDS ORDERED: LORazepam 2MG/ML-1ML VIAL IV ONE (11:30)
--- NOTE | 2018-12-05 12:00 | NUR ---
Pt on continuous soft wrist restraints note. TRU,LIDIA restless/agitated, trying to get out of the bed, fall risk, non compliant with treatment plan. All comfort measures failed including reorientation, pain management, decreased stimuli, diversions/distractions, and bathroom necessity. Checked bilateral wrist restraints no skin breakdown, tissue perfusion good, including safety precautions. Sitter at bedside. See Restraint assessment for further charting.
--- NOTE | 2018-12-05 12:19 | NUR ---
HR-130's-140's after administration of 2nd dose of Ativan 1mg IV. Dr. Alfred made aware. As soon as the patient calms down. Will do EKG. Will continue to monitor.
[2018-12-05 13:00] VITALS: BP 137/98
--- NOTE | 2018-12-05 14:00 | NUR ---
Pt on continuous soft wrist restraints note. TRU,LIDIA agitated/restless, pulling out lines and tubes, kicking on the bed (siderails padded), trying to get out of the bed. All comfort measures failed including reorientation, pain management, decreased stimuli, diversions/distractions, family involvement, and bathroom necessity. Skin intact on bilateral wrist with good tissue perfusion, including safety precautions. See Restraint assessment for further charting.
--- NOTE | 2018-12-05 14:15 | NUR ---
EKG done. AFIB with RVR-131bpm. Paged Dr. Alfred. Waiting for call back.
--- NOTE | 2018-12-05 14:35 | NUR ---
Dr. Alfred returned call, updated on result of EKG. Orders received. Patient is for Amiodarone drip per protocol. supervisor blood Monica informed since Amiodarone drip is not a Telemetry protocol. Instructions received from Monica to call back Dr. Alfred if he wanted administration of Amiodarone 150mg IV bolus then convert to PO. No available [facility] bed at this time.
--- NOTE | 2018-12-05 14:38 | NUR ---
Nutrition Follow-up Notes Wt.: 76.4 kg Pt`s confused with mild restraints on, HEAD TENNIS PROFESSIONAL by beside. per HEAD TENNIS PROFESSIONAL pt is refusing to eating/drink, not very alert. pt is currently confused on clear liq diet with inadequate PO of 0% x 4 per RN doc Est. Needs: 1450 kcal to 1800 kcal (20-25 kcal/kgBW), 43-58 gms pro (0.6-0.8 gms/kgBW). Will continue to monitor pertinent labs and reassess nutrient needs prn. reassessed as ammonia trending up Labs: AMMONIA 67 H, BUN 44 H, CREAT 1.54 H, CA 7.9 L., ALB 2.8 L. Skin: Santana scale 17, mod risk, skin intact per RN doc GI: Pt hd 9 BM yesterday per planer feeder. PES: Altered nutrition related lab values r/t current/chronic medical condition aeb hyperglycemia, hypocapnia,hyperchloremia, elev. BUN, LFTs, hyperbilirubinemia, hypocalcemia and mod hypoalbuminemia Increased nutrient needs r.t chronic current medical condition aeb ALOC. mod hypoalbuminemia, Acute abdominal pain,Elevated liver enzymes,Clear Liquid diet Will continue to monitor PO intake, skin status, pertinent labs and weight trend. F/u in 2-3 days. Rec.: 1.) Advance gradually oral diet (Soft Low Chol, Low Fat diet) when medically appropriate. 2.) If Albumin level continues trending down, consider Prostat 1 pkt BID. 3.) Consider close supervision and feeding assistance prn during meals 4.) Refer to RD for further nutrition educ. and weight monitoring upon discharge. 5.) Consider alternate nutrition support if pt continues to refuse PO. 6) Continue current plan of care.
--- NOTE | 2018-12-05 14:45 | NUR ---
Paged Dr. Alfred regarding administration of Amiodarone drip. Waiting for call back.
[2018-12-05] MEDS: D5W 5% 1,000 ML IV SCH ×2 (15:30→21:04)
--- NOTE | 2018-12-05 15:45 | NUR ---
Re-paged Dr. Alfred regarding AFIB. Waiting for call back
[2018-12-05] MEDS ORDERED: AMIODARONE HCL 150 MG in D5W 5% 100 ML IV ONE ×2 (16:00→22:45)
--- NOTE | 2018-12-05 16:00 | NUR ---
Pt on continuous soft wrist restraints note. TRULIDIA agitated/restless, getting out of bed, fall risk. All comfort measures failed including reorientation, pain management, decreased stimuli, diversions/distractions, family involvement, and bathroom necessity. Bilateral wrist restraints assessed, skin intact with good tissue perfusion, including safety precautions. Sitter at bedside. See Restraint assessment for further charting.
[2018-12-05 17:00] VITALS: BP 145/104
--- NOTE | 2018-12-05 17:24 | NUR ---
Amiodarone 150mg IV bolus administered as ordered. Will continue to monitor.
--- NOTE | 2018-12-05 17:50 | NUR ---
HR-130's. Will continue to monitor.
--- NOTE | 2018-12-05 18:00 | NUR ---
Pt on continuous soft wrist restraints note. TRULIDIA agitated/restless, getting out of bed, trying to pull out lines and tubes, fall risk. All comfort measures failed including reorientation, pain management, decreased stimuli, diversions/distractions. Bilateral wrist restraints assessed, skin intact with good tissue perfusion, including safety precautions. Sitter at bedside. See Restraint assessment for further charting.
--- NOTE | 2018-12-05 19:10 | NUR ---
Patient HR-150's to 160's paged hospitalist conformal pad former thru PBX. Waiting for call back.
--- NOTE | 2018-12-05 19:16 | NUR ---
Gave reports to production shift supervisor RN. Awaiting hospitalist call back re: ELIER.
--- NOTE | 2018-12-05 19:16 | NUR ---
Closing notes Gave reports to [place] RN, patient is restless/agitated on bilateral soft wrist restraints renewal of the order due at 2250. Skin intact with good tissue perfusion. With sitter at a bedside. See restraints assessment on the chart for further documentation.
--- NOTE | 2018-12-05 19:18 | NUR ---
Opening Shift Note Assumed care of patient who is unresponsive and agitated at this time. Patient has soft restraints to her bilateral wrists at this time. Circulation and SKIN WNL. Bed is in lowest position and locked. Call light within reach. Board updated. Sitter at bedside. D5 infusing at 100 mls/hr.Negrete catheter secured to leg with securement device and negrete bag is hung below bladder to non-moveable surface of bedframe. Will continue to monitor for changes Q1hr and PRN.
--- NOTE | 2018-12-05 20:00 | NUR ---
Patient continued in soft restraints Patient agitated, pulling at lines and tubes medically necessary for treatment, risk for fall and non compliant with safety instructions. All comfort measures failed including reorientation, pain management, decreased stimuli, diversions/distractions, and bathroom necessity. Soft wrist restraints in place to bilateral wrist with proper fitting. Skin intact, no redness noted. Circulation assessed, positive tissue perfusion and WNL. Needs assessment met. Sitter at bedside. See Restraint assessment for further charting.
--- NOTE | 2018-12-05 20:45 | NUR ---
Spoke to ALTHEA Sousa about continued A-Fib with RVR. ALTHEA Sousa ordered Cardizem 10 mg IV push once to be given now.
[2018-12-05] MEDS ORDERED: DILTIAZEM HCL 25 MG/5 ML VIAL IV ONE ×2 (20:46→21:00)
[2018-12-05 20:51] VITALS: BP 149/105
[2018-12-05] MEDS: LACTULOSE 20Gm/30ML SOLN PO SCH (21:03)
[2018-12-05] MEDS: AMIODARONE HCL 200 MG TAB PO SCH (21:04)
[2018-12-05 21:40] VITALS: BP 149/105
--- NOTE | 2018-12-05 22:45 | NUR ---
Spoke to hospitalist and notified him that patient's HR is in 150s at this time, BP is 142/102b with an MAP of 118, Pulse ox: 99% on 2 l/min NC. ALTHEA Sousa ordered transfer to [facility] and begin Amiodarone drip per protocol.
[2018-12-05] MEDS ORDERED: AMIODARONE HCL 900 MG in DEXTROSE 500 ML IV SCH (22:50)
[2018-12-05] MEDS ORDERED: AMIODARONE HCL (50 MG/ ML) 3 ML VIAL IV ONE (22:57)
--- NOTE | 2018-12-05 22:58 | NUR ---
IV insertion IV access obtained, via clean technique by inserting a 22 gauge catheter into a vein in the left wrist after 2 attempts. IV secured properly. No trauma to site. Patient tolerated well.
--- NOTE | 2018-12-05 23:18 | NUR ---
Entry Level Civil Engineer educated me on how to administer Amiodarone.
--- NOTE | 2018-12-06 | NUR ---
Patient continued in soft restraints Patient continues to be agitated, pulling at lines and tubes medically necessary for treatment, risk for fall and non compliant with safety instructions. All comfort measures failed including reorientation, pain management, decreased stimuli, diversions/distractions, and bathroom necessity. Soft wrist restraints in place to bilateral wrist with proper fitting. Skin intact, no redness noted. Circulation assessed, positive tissue perfusion and WNL. Needs assessment met. Sitter at bedside. See Restraint assessment for further charting.
[2018-12-06] MEDS: MORPHINE SULFATE 4 MG/ML SYR/VIAL IV PRN ×3 (01:34→18:35)
--- NOTE | 2018-12-06 01:57 | NUR ---
Patient has converted to Sinus rhythm in 90s.
[2018-12-06] MEDS ORDERED: AMIODARONE HCL 900 MG in DEXTROSE 500 ML IV SCH (04:50)
[2018-12-06 05:48] VITALS: BP 130/87
--- NOTE | 2018-12-06 06:48 | NUR ---
IV insertion IV access obtained, via clean technique by inserting a 22 gauge catheter into the left wrist after 1 attempt. IV secured properly. No trauma to site. Patient tolerated well.
--- NOTE | 2018-12-06 07:37 | NUR ---
Closing Note Patient lying in bed with eyes closed. NGT to right nare secured in place. Soft restraints in place to right wrist only now. Patient sleeping at this moment but has been agitated, non compliant with safety instructions most of evening and morning. Skin intact. Circulation WNL. Whelan intact and draining to gravity with dark melina urine. Right nephrostomy intact. Bed low in locked position with side rails up x 2 and call light within reach. Sitter at bedside. Endorsed care to day shift LIT Bryant.
--- NOTE | 2018-12-06 08:00 | NUR ---
RECEIVED PT RESTING IN BED, CALL LIGHT WITH IN REACH, PT HAS BEEN ATTEMPTING TO PULL LINES AND NGT, PT IS AT FALL RISK AND IS NON COMPLIANT WITH INSTRUCTIONS, PT ON SOFT RT WRIST RESTRAIN AND MITTEN ON LT HAND, RT AND LT WRIST SKIN INTACT. PT CLEAN AND DRY AFTER A BM, PT TURNED AND REPOSITION, SITTER AT BED SIDE, WILL CONTINUE TO MONITOR PT.
[2018-12-06] MEDS ORDERED: LORazepam 2MG/ML-1ML VIAL IV PRN (08:15)
[2018-12-06 09:00] VITALS: BP 125/70
[2018-12-06] MEDS: PANTOPRAZOLE 40 MG/10 ML VIAL IV SCH (09:37)
[2018-12-06] MEDS: cefTRIAXone 1GM/50ML D5W 50 ML IV SCH (09:37)
[2018-12-06] MEDS: LACTULOSE 20Gm/30ML SOLN PO SCH ×2 (09:38→21:59)
[2018-12-06] MEDS: ENOXAPARIN SOD 80 MG/0.8ML SYRINGE SC SCH ×2 (09:38→21:58)
[2018-12-06] MEDS: AMIODARONE HCL 200 MG TAB PO SCH ×2 (10:00→21:58)
--- NOTE | 2018-12-06 10:00 | NUR ---
PT CALM AND RELAXED, PT SLEEPING COMFORTABLY, CALL LIGHT WITHIN REACH, SITTER AT BED SIDE, RELEASED SOFT RT RESTRAIN. WILL CONTINUE TO MONITOR PT.
[2018-12-06] MEDS: D5W 5% 1,000 ML IV SCH ×2 (10:14→18:01)
[2018-12-06 11:24] LABS: Calcium 7.5 mg/dL (8.5-10.1); Potassium 4.6 mmol/L (3.5-5.1)
[2018-12-06 11:26] LABS: BUN/Creatinine Ratio 23.9
--- NOTE | 2018-12-06 11:31 | NUR ---
PT MOANING, MOVING AROUND AND HAVING FACIAL EXPRESSIONS OF PAIN, WILL MEDICATE PT ORDER.
[2018-12-06 11:37] LABS: Albumin 2.7 g/dL (3.4-5.0); Bilirubin, Direct 1.3 mg/dL (0-0.2)
[2018-12-06 11:39] LABS: Bilirubin, Total 2.3 mg/dL (0.2-1.0); Total Protein 6.6 g/dL (6.4-8.2)
[2018-12-06 13:00] VITALS: BP 129/82
--- NOTE | 2018-12-06 13:05 | NUR ---
PT TAKEN TO RADIOLOGY FOR HEAD CT.
--- NOTE | 2018-12-06 13:28 | NUR ---
PT BACK FROM RADIOLOGY.
--- NOTE | 2018-12-06 14:03 | NUR ---
CALLED AND SPOKE TO DR. MCKEON /NEPHROLOGY, DOCTOR INFORMED THAT THERE IS NO URINE OUTPUT IN FROST CATHETER AND ONLY 20 ML OF URINE OUTPUT ON NEPHROSTOMY SINCE 729, ORDERS TO IRRIGATE FROST AND TO ORDER A KIDNEY ULTRASOUND.
--- NOTE | 2018-12-06 14:40 | NUR ---
BLADDER SCAN DONE, OBTAIN 58 ML OF URINE IN BLADDER SCAN, ATTEMPTED TO IRRIGATE THE FROST RESISTANCE MET, REMOVED OLD FROST CATHETER, DEFLATED THE BALLOON, FROST CATHETER TIP INTACT, INSERTED A NEW FROST CATHETER, OBTAIN 50 ML OF CLEAR YELLOW URINE AFTER INSERTION. WILL CONTINUE TO MONITOR PT.
--- NOTE | 2018-12-06 16:10 | NUR ---
DR. JONES AT BED SIDE TO SEE PT, DOCTOR INFORMED THAT PT IS ON AMIODARONE DRIP THAT WILL SOON FINISHED, DOCTOR ALSO INFORMED THAT PT HAS HAD LOW URINE OUT PUT, THAT DR. MCKEON/NEPHROLOGY INFORMED, AND THAT PT HAS BEEN SINUS RHYTHM ON , PER DR. JONES CONTINUE WITH PO AMIODARONE, DO URINE AND BLOOD OSMOLALITY.
--- NOTE | 2018-12-06 16:39 | NUR ---
assessment Patient is a 52 year old female who is confused. Patient unable to accept resources for her meth use. Addendum: 12/06/18 at [place] by Macy HOOVER Amended: Links added.
[2018-12-06 17:00] VITALS: BP 145/82
--- NOTE | 2018-12-06 17:15 | NUR ---
CALLED AND SPOKE TO DR. JONES TO ASK IF PT SHOULD STILL CONTINUE TO TRANSFER TO [facility], PER DR. JONES PT CAN STAY ON THE TELE FLOOR. CHARGE NURSE INFORMED.
--- NOTE | 2018-12-06 19:20 | NUR ---
Opening Shift Note Assumed care of patient, unresponsive but not agitated. Mittens on bilateral hands. Sitter at bedside. D5 infusing at 125 ml/hr. Bed is in lowest position and locked. Call light within reach. Board updated. No S/S of distress/SOB. Tele box number matches monitor and leads are in correct position. Will continue to monitor for changes Q1hr and PRN.
[2018-12-06 22:00] VITALS: BP 128/86
[2018-12-07] MEDS: MORPHINE SULFATE 4 MG/ML SYR/VIAL IV PRN ×3 (00:56→17:14)
[2018-12-07] MEDS: D5W 5% 1,000 ML IV SCH ×2 (02:54→19:00)
[2018-12-07 04:50] VITALS: BP 130/79
[2018-12-07 07:04] LABS: Basophils # (auto) 0.1 uL; Basophils % (auto) 0.5 % (0.0-2.0); Eosinophils # (auto) 0 uL; Eosinophils % (auto) 0.3 % (0.0-7.0); Lymphocytes # (auto) 2.2 uL; Lymphocytes % (auto) 20.4 % (10.0-50.0); Mean Corpuscular Hemoglobin 27.5 pg (28.0-32.0); Mean Corpuscular Hgb Conc. 31.3 g/dL (32.0-36.0); Mean Corpuscular Volume 87.6 fL (80.0-100.0); Monocytes # (auto) 1.4 uL; Monocytes % (auto) 12.8 % (0.0-12.0); Neutrophils # (auto) 7.2 uL; Nucleated Red Blood Cells % 0.6 %; Platelet Count (auto) 187 10^3/uL (140-450); Red Blood Cells 3.65 10^6/uL (4.0-5.20); Red Cell Distribution Width 17.9 % (11.8-14.3); White Blood Cell 10.8 10^3/uL (4.4-10.8)
[2018-12-07 07:44] LABS: Anion Gap 7 (5-15); Carbon Dioxide 22 mmol/L (21-32); Chloride 123 mmol/L (98-107); Potassium 3.6 mmol/L (3.5-5.1); Sodium 152 mmol/L (136-145)
[2018-12-07 07:45] LABS: Blood Urea Nitrogen 52 mg/dL (7-18); Calcium 7.3 mg/dL (8.5-10.1); GFR African American 32 mL/min; GFR Non-African American 27 mL/min; Glucose 137 mg/dL (74-106)
[2018-12-07] MEDS: LORazepam 2MG/ML-1ML VIAL IV PRN ×2 (08:00→12:00)
[2018-12-07 09:00] VITALS: BP 116/72
[2018-12-07] MEDS: LACTULOSE 20Gm/30ML SOLN PO SCH ×2 (10:00→22:23)
[2018-12-07 10:26] LABS: Protein, Urine 59.9 mg/dL (0.0-11.9)
[2018-12-07 11:05] LABS: Albumin 2.6 g/dL (3.4-5.0); Bilirubin, Direct 1.3 mg/dL (0-0.2)
[2018-12-07 11:14] LABS: Total Protein 6.2 g/dL (6.4-8.2)
[2018-12-07] MEDS: D5W 5% IV SCH ×2 (13:39→22:23)
[2018-12-07] MEDS: cefTRIAXone 1GM/50ML D5W 50 ML IV SCH (13:39)
[2018-12-07] MEDS: SODIUM BICARBONATE IV SCH ×2 (13:39→22:23)
[2018-12-07] MEDS: POTASSIUM CHLORIDE IV SCH ×2 (13:39→22:23)
[2018-12-07] MEDS: ENOXAPARIN SOD 80 MG/0.8ML SYRINGE SC SCH ×2 (13:39→22:24)
[2018-12-07] MEDS: PANTOPRAZOLE 40 MG/10 ML VIAL IV SCH (13:39)
[2018-12-07] MEDS: AMIODARONE HCL 200 MG TAB PO SCH ×2 (13:40→22:24)
[2018-12-07] MEDS: PROMETHAZINE HCL 25 MG/ML 1ML IV PRN (15:37)
[2018-12-07 17:00] VITALS: BP 127/71
--- NOTE | 2018-12-07 19:24 | NUR ---
Opening Shift Note Assumed care of patient, unresponsive but not agitated. Mittens on bilateral hands. Sitter at bedside. D5 with 50 ml of sodium bicarbonate and 10 mEq of KCL infusing at 100 ml/hr. Bed is in lowest position and locked. Call light within reach. Board updated. No S/S of distress/SOB. Tele box number matches monitor and leads are in correct position. Will continue to monitor for changes Q1hr and PRN.
[2018-12-07 22:00] VITALS: BP 106/73
[2018-12-08] MEDS: MORPHINE SULFATE 4 MG/ML SYR/VIAL IV PRN ×4 (00:02→19:03)
[2018-12-08] MEDS: LORazepam 2MG/ML-1ML VIAL IV PRN ×4 (00:35→22:21)
--- NOTE | 2018-12-08 01:30 | NUR ---
Ordered Chest X-Ray per protocol to confirm NG tube placement after patient ripped out NG tube earlier today at approximately 1300, per day shift RN and new NG tube was placed. Patient has poor gag reflex and some congestion in her upper airway. Air auscultated in in stomach region when assessed.
[2018-12-08] MEDS: D5W 5% 1,000 ML IV SCH (02:15)
[2018-12-08 05:00] VITALS: BP 121/71
[2018-12-08] MEDS: D5W 5% IV SCH (06:34)
[2018-12-08] MEDS: SODIUM BICARBONATE IV SCH (06:34)
[2018-12-08] MEDS: POTASSIUM CHLORIDE IV SCH (06:34)
[2018-12-08 07:28] LABS: Calcium 6.9 mg/dL (8.5-10.1); Potassium 3.2 mmol/L (3.5-5.1)
[2018-12-08 07:38] LABS: Albumin 2.3 g/dL (3.4-5.0); BUN/Creatinine Ratio 25.6; Bilirubin, Total 2.8 mg/dL (0.2-1.0); Total Protein 5.6 g/dL (6.4-8.2)
--- NOTE | 2018-12-08 08:00 | NUR ---
Pt resting quietly, calm. V.S.S., resp even, unlabored. Hand mittens maintained due to pt's tendency to pull at IV, negrete, and NG tube. Sitter maintained for pt's safety.
[2018-12-08 09:48] VITALS: BP 146/95
[2018-12-08] MEDS: PANTOPRAZOLE 40 MG/10 ML VIAL IV SCH (10:00)
[2018-12-08] MEDS: ENOXAPARIN SOD 80 MG/0.8ML SYRINGE SC SCH ×2 (10:30→22:22)
--- NOTE | 2018-12-08 10:30 | NUR ---
Pt very agitated, thrashing about with all extremities. Pt is none verbal, and does not open eyes. Pt appears to have no awareness of self, time, place or situation. Ativan IV given at this time.
[2018-12-08] MEDS: LACTULOSE 20Gm/30ML SOLN PO SCH ×2 (10:34→22:22)
[2018-12-08] MEDS: AMIODARONE HCL 200 MG TAB PO SCH ×2 (10:35→22:21)
[2018-12-08] MEDS ORDERED: POTASSIUM PHOSPHATE 44 MEQ in D5W 5% 250 ML IV ONE (10:45)
--- NOTE | 2018-12-08 11:30 | NUR ---
Pt continues to be agitated, thrashing about, and moaning. IV Morphine given at this time for apparent discomfort.
[2018-12-08] MEDS: SODIUM BICARBONATE 50ML VIAL 50 ML, POTASSIUM CHLORIDE 20 MEQ in D5W 5% 1,000 ML IV SCH ×2 (12:18→22:22)
[2018-12-08 12:45] VITALS: BP 130/85
--- NOTE | 2018-12-08 14:00 | NUR ---
Pt calm, resting quietly. Pt appears to be in no pain or discomfort.
--- NOTE | 2018-12-08 17:45 | NUR ---
Ativan given for agitation and thrashing about
--- NOTE | 2018-12-08 19:00 | NUR ---
Pt continues to be extremely agitation, and moaning. Morphine given for apparent discomfort.
--- NOTE | 2018-12-08 19:18 | NUR ---
Assumed care of patient who is unresponsive. Bed is in lowest position and locked. Call light within reach. Board updated.Sitter at bedside. Whelan catheter secured to leg with securement device and bag is hung below bladder to non-moveable part of bedframe. Tele box number matches monitor and leads are in correct placement. Fluids infusing at ordered rate. Will continue to monitor every hour and PRN.
[2018-12-08 22:00] VITALS: BP 117/71
[2018-12-09] MEDS: MORPHINE SULFATE 4 MG/ML SYR/VIAL IV PRN ×4 (00:18→17:46)
[2018-12-09 05:52] VITALS: BP 91/62
[2018-12-09] MEDS: LORazepam 2MG/ML-1ML VIAL IV PRN ×4 (06:08→21:41)
[2018-12-09 07:20] LABS: INR 1.49 (0.9-1.15); Prothrombin Time 15.6 sec (9.27-12.13)
[2018-12-09 07:21] LABS: Albumin 2.1 g/dL (3.4-5.0); Calcium 6.5 mg/dL (8.5-10.1); Magnesium 1.9 mg/dL (1.6-2.6); Potassium 3.6 mmol/L (3.5-5.1)
--- NOTE | 2018-12-09 07:30 | NUR ---
Opening Shift Note Assumed care of patient. Patient is verbally unresponsive, but awake with eyes closed. Patient exhibiting signs of distress buy thrashing legs and arms about in bed. IV in right hand 22 gauge asymptomatic, intact, patent, and infusing D5 with Bicarb 50 mL and 10 meQ of potassium. Whelan catheter patent and draining clear gold yellow urine to gravity. Bed locked and in lowest position, and sitter is at bedside for 24 hour monitoring and supervision of patient. Instructed on POC and to call for assist PRN, and patient was unable to verbalize understanding. Will continue to monitor for changes Q1hr and PRN.
[2018-12-09 07:45] LABS: Bilirubin, Total 3.8 mg/dL (0.2-1.0); Total Protein 5.7 g/dL (6.4-8.2)
[2018-12-09] MEDS: SODIUM BICARBONATE 50ML VIAL 50 ML, POTASSIUM CHLORIDE 20 MEQ in D5W 5% 1,000 ML IV SCH ×2 (07:57→23:39)
[2018-12-09 08:10] VITALS: BP 129/74
--- NOTE | 2018-12-09 08:30 | NUR ---
DR. KASPER AT BEDSIDE.
[2018-12-09] MEDS: PANTOPRAZOLE 40 MG/10 ML VIAL IV SCH (10:00)
[2018-12-09] MEDS: LACTULOSE 20Gm/30ML SOLN PO SCH ×2 (10:00→23:39)
[2018-12-09] MEDS: AMIODARONE HCL 200 MG TAB PO SCH ×2 (10:00→23:39)
[2018-12-09] MEDS: ENOXAPARIN SOD 80 MG/0.8ML SYRINGE SC SCH ×2 (10:00→23:39)
[2018-12-09] MEDS ORDERED: POTASSIUM PHOSPHATE 44 MEQ in D5W 5% 250 ML IV ONE (10:15)
[2018-12-09 11:02] VITALS: BP 128/72
--- NOTE | 2018-12-09 12:00 | NUR ---
IV removal LEFT AC IV DC'd with sterile technique, catheter fully intact. Pressure dressing applied to site. Patient tolerated procedure well.
--- NOTE | 2018-12-09 12:12 | NUR ---
Nutrition Follow-up Notes Wt.: 76.4 kg Pt`s confused with mild restraints on, GLOVE TURNER by beside. per GLOVE TURNER pt is refusing to eating/drink, not very alert. pt is currently confused on clear liq diet with inadequate PO of 0% x 2 days per RN doc Est. Needs: 1450 kcal to 1800 kcal (20-25 kcal/kgBW), 72-86 gms pro (1.0-1.2 gms/kgBW). Will continue to monitor pertinent labs and reassess nutrient needs prn. reassessed as Ammonia wnl Labs: BUN 19 H, CREAT 1.12 H, CA 6.5 L, YASMIN 3.8 H, ALB 2.1 L. Skin: Santana scale 17, mod risk, skin intact per RN doc GI: Pt hd 3 BM yesterday diarr per physical medicine teacher. PES: Altered nutrition related lab values r/t current/chronic medical condition aeb hyperglycemia, hypocapnia,hyperchloremia, elev. BUN, LFTs, hyperbilirubinemia, hypocalcemia and mod hypoalbuminemia Increased nutrient needs r.t chronic current medical condition aeb ALOC. mod hypoalbuminemia, Acute abdominal pain,Elevated liver enzymes,Clear Liquid diet Will continue to monitor PO intake, skin status, pertinent labs and weight trend. F/u in 2-3 days. Rec.: 1.) Advance gradually oral diet (Soft Low Chol, Low Fat diet) when medically appropriate. 2.) If Albumin level continues trending down, consider Prostat 1 pkt BID. 3.) Consider close supervision and feeding assistance prn during meals 4.) Refer to RD for further nutrition educ. and weight monitoring upon discharge. 5.) Consider alternate nutrition support if pt continues to refuse PO. 6) Continue current plan of care.
[2018-12-09 16:26] VITALS: BP 123/69
[2018-12-09 17:50] LABS: BUN/Creatinine Ratio 14.9; Calcium 6.2 mg/dL (8.5-10.1); Potassium 4.1 mmol/L (3.5-5.1)
--- NOTE | 2018-12-09 19:00 | NUR ---
Opening Shift Note Assumed care of agitated patient, not alert, not oriented. Sitter on bedside. Instructed sitter on POC and to call for assist PRN, will continue to monitor for changes Q1hr and PRN.
[2018-12-09 21:20] VITALS: BP 124/73
--- NOTE | 2018-12-09 22:00 | NUR ---
Paged hospitalist for orders. Pt getting more agitated, pulling on wires and tubes,.
--- NOTE | 2018-12-09 22:15 | NUR ---
Received orders from hospitalist.
[2018-12-09] MEDS: diphenhdrAMINE HCL 50 MG/1 ML VL IV ONE (22:31)
[2018-12-09] MEDS: HALOPERIDOL LACTATE 5 MG/ML INJ VIAL IM ONE (22:32)
[2018-12-10] MEDS: HALOPERIDOL LACTATE 5 MG/ML INJ VIAL IM ONE (00:20)
[2018-12-10] MEDS: diphenhdrAMINE HCL 50 MG/1 ML VL IV ONE (00:20)
--- NOTE | 2018-12-10 00:20 | NUR ---
HALDOL 5 MG IM AND BENADRYL 25 IV GIVEN
[2018-12-10] MEDS: LORazepam 2MG/ML-1ML VIAL IV PRN ×4 (04:10→20:06)
[2018-12-10 05:26] VITALS: BP 112/85
[2018-12-10 07:20] LABS: Albumin 2.3 g/dL (3.4-5.0); Calcium 7.4 mg/dL (8.5-10.1); Potassium 3.6 mmol/L (3.5-5.1)
[2018-12-10 07:23] LABS: BUN/Creatinine Ratio 14.3; Bilirubin, Total 4.3 mg/dL (0.2-1.0); Phosphorus 1.9 mg/dL (2.5-4.90); Total Protein 5.8 g/dL (6.4-8.2)
--- NOTE | 2018-12-10 08:00 | NUR ---
opening shift note Assumed care for unresponsive patient to verbal commands. Patient is agitated, restless,thrashing around bed. Tried to reorientate, unsuccessful. NG tube to right nares, placement verified auscultation and air bolus. Tele number 12 sinus rhythm at 85 bpm. IV on right hand 22g patent and infusing sodium bicarb with potassium at 100 ml/hr. IV is intact, clean and dry. Nephrostomy drain to right flank draining clear, yellow urine to gravity. Whelan is below waist draining clear, yellow urine. Bilateral soft mittens to both hands due to patient pulling at lines. Vascular status assessed and WNL. Safety maintained and sitter is bedside. Bed locked and in lowest position and call light within reach.
[2018-12-10 08:55] VITALS: BP 137/76
--- NOTE | 2018-12-10 10:00 | NUR ---
Safety Patient is Unresponsive to verbal commands. Patient is agitated, restless, and thrashing. Patient was unsuccessfully reoriented. Patient has bilateral mittens due to trying to pull out lines. Patient vascular status assessed to bilateral wrist and WNL. Sitter is bedside for patient safety. Bed in lowest position and call light in reach.
--- NOTE | 2018-12-10 10:30 | NUR ---
Rounds Dr. Villalba at bedside for patient rounds. Patient is restless, agitated, and thrashing. New orders received and followed through. Sitter remains at bedside for patient safety. Bed in lowest position and call light is within reach.
[2018-12-10] MEDS: ENOXAPARIN SOD 80 MG/0.8ML SYRINGE SC SCH ×2 (10:33→22:02)
[2018-12-10] MEDS: PANTOPRAZOLE 40 MG/10 ML VIAL IV SCH (10:33)
[2018-12-10] MEDS: AMIODARONE HCL 200 MG TAB PO SCH ×2 (12:00→22:02)
--- NOTE | 2018-12-10 12:00 | NUR ---
Safety Patient is unresponsive to verbal commands. Attempted to orient patient and was unsuccessful. Patient is restless and thrashing in bed. Patient has bilateral mittens due to trying to pull out lines. Vascular status assessed and WNL. Sitter is bedside for safety. Bed is in lowest position and call light is within reach.
[2018-12-10 13:00] VITALS: BP 138/90
[2018-12-10] MEDS ORDERED: POTASSIUM PHOSPHATE 44 MEQ in D5W 5% 250 ML IV ONE (14:00)
--- NOTE | 2018-12-10 14:00 | NUR ---
Safety Patient is unresponsive to verbal commands. Patient was unsuccessfully reoriented. Patient thrashing, restless and agitated. Mittens on bilateral hands due to patient trying to pull out lines. Vascular status assessed and WNL. Patient pulled out IV in right hand by thrashing in bed. Sitter is bedside for safety. Call light is within reach and bed is in lowest position.
--- NOTE | 2018-12-10 15:45 | NUR ---
TELE PSYCH Tele Psych consult placed and completed. Dr Knight consulting. Per Dr Knight, he will send over recommendations via fax. Patient remains agitated, thrashing in the bed, kicking legs over the side rails, despite numerous attempts to reorient. Bilateral soft wrist mittens in place, vascular status assessed, WNL. Sitter remains at bedside for patient safety.
[2018-12-10] MEDS: LACTULOSE 20Gm/30ML SOLN PO SCH ×2 (15:50→22:02)
--- NOTE | 2018-12-10 15:54 | NUR ---
IV removal IV DC'd to right wrist with clean sterile technique, catheter fully intact after patient turned to side and tubing got caught on bedside rail, pressure dressing applied to site. Patient tolerated well. IV insertion IV access obtained, via clean sterile technique by inserting 22 gauge catheter at the right forearm after 2 attempt(s). IV secured properly. No trauma to site. Patient tolerated procedure well.
--- NOTE | 2018-12-10 16:05 | NUR ---
re-assessment Patient remains confused. I have left a message for patients sig other Naun [phone] to return my call. Addendum: 12/10/18 at 1606 by Macy HOOVER Amended: Links added.
[2018-12-10 16:33] VITALS: BP 145/83
--- NOTE | 2018-12-10 16:44 | NUR ---
SAFETY Patient continues to thrash in bed, flinging legs outside of bed rails. Despite reorientation, patient continues to remains non-responsive to verbal and tactile stimuli. Bilateral soft hand mittens in place for patient safety to prevent patient from pulling at lines and NGT. Bed locked, in lowest position, call light within reach, sitter remains at bedside.
--- NOTE | 2018-12-10 19:18 | NUR ---
Care endorsed to LIT Shrestha, night nurse.
[2018-12-10 22:00] VITALS: BP 150/92
[2018-12-11] MEDS: LORazepam 2MG/ML-1ML VIAL IV PRN ×4 (00:30→20:22)
[2018-12-11] MEDS: D5W 5% 1,000 ML IV SCH ×2 (03:27→03:28)
[2018-12-11 05:03] VITALS: BP 143/95
--- NOTE | 2018-12-11 07:24 | NUR ---
CARE ENDORSED TO DAY RN. SITTER AT BEDSIDE.
--- NOTE | 2018-12-11 08:00 | NUR ---
Opening Shift Note Assumed care of patient, awake, agitated, thrashing in bed, flinging both legs around, over both side rails. No S/S of SOB. Bilateral soft wrist mittens in place, vascular status assessed, left hand swollen, + 2 dependent pitting edema noted, mitten removed, skin intact, hand elevated on pillow to decrease edema, right hand vascular stats WNL, mitten remains on for patient safety. Right flank nephrostomy tube draining clear, yellow urine to gravity, dressing clean, dry and intact. Urethral Whelan catheter draining light melina urine to gravity. Rash to periarea, pictures taken, Zguard applied. Right ankle abrasion noted with small serosanguineous drainage noted, Optifoam dressing applied, left ankle abrasion with blanchable redness, Optifoam placed, pictures taken, wound care and dietary order placed. Instructed on POC and to call for assist PRN, unable to comprehend, sitter remains at bedside for patient safety, will continue to monitor for changes Q1hr and PRN.
--- NOTE | 2018-12-11 08:17 | NUR ---
NEUROLOGY FOLLOW UP Dr Conte at bedside for Neurology follow up, new orders received and followed through. Patent remains in bilateral wrist mittens to prevent patient from pulling at lines and NGT. Sitter remains at bedside for patient safety.
[2018-12-11 08:18] VITALS: BP 150/79
[2018-12-11 08:34] LABS: Basophils # (auto) 0.1 uL; Basophils % (auto) 0.9 % (0.0-2.0); Eosinophils # (auto) 0.1 uL; Eosinophils % (auto) 1.1 % (0.0-7.0); Hematocrit 35.1 % (36.0-46.0); Hemoglobin 11.2 g/dL (12.2-16.2); Lymphocytes # (auto) 2.5 uL; Lymphocytes % (auto) 19.4 % (10.0-50.0); Mean Corpuscular Hemoglobin 27.1 pg (28.0-32.0); Mean Corpuscular Hgb Conc. 31.9 g/dL (32.0-36.0); Monocytes # (auto) 1.8 uL; Monocytes % (auto) 14.1 % (0.0-12.0); Neutrophils # (auto) 8.5 uL; Neutrophils % (auto) 64.5 % (37.0-80.0); Nucleated Red Blood Cells % 0.1 %; Platelet Count (auto) 212 10^3/uL (140-450); Red Blood Cells 4.13 10^6/uL (4.0-5.20); Red Cell Distribution Width 17.9 % (11.8-14.3); White Blood Cell 13.1 10^3/uL (4.4-10.8)
[2018-12-11 08:55] LABS: Albumin 2.5 g/dL (3.4-5.0); Calcium 7.8 mg/dL (8.5-10.1); Potassium 3.7 mmol/L (3.5-5.1)
[2018-12-11 08:58] LABS: BUN/Creatinine Ratio 10.1; Bilirubin, Total 4.5 mg/dL (0.2-1.0); Total Protein 6.5 g/dL (6.4-8.2)
[2018-12-11] MEDS: MORPHINE SULFATE 4 MG/ML SYR/VIAL IV PRN ×3 (09:30→22:07)
--- NOTE | 2018-12-11 09:30 | NUR ---
PAIN MANAGEMENT Morphine administered for facial grimacing and thrashing in the bed.
--- NOTE | 2018-12-11 09:40 | NUR ---
Patient now calm, right hand mitten removed, vascular status remains WNL. Sitter remains at bedside for patient safety.
--- NOTE | 2018-12-11 09:45 | NUR ---
Patient now calm, no more thrashing in bed, V/S WNL, respirations even and non-labored. Sitter remains at bedside for patient safety.
[2018-12-11] MEDS: AMIODARONE HCL 200 MG TAB PO SCH ×2 (09:59→22:07)
--- NOTE | 2018-12-11 10:00 | NUR ---
NEPHROLOGY Dr Patel at bedside for Nephrology follow up, new orders received and followed through. Patient resting with eyes closed, no thrashing around in bed since Morphine was given IV. Sitter remains at bedside for patient safety. Bed locked, in lowest position, call light within reach, will continue to monitor Q1 hour and PRN.
[2018-12-11] MEDS: ENOXAPARIN SOD 80 MG/0.8ML SYRINGE SC SCH ×2 (10:01→22:07)
[2018-12-11] MEDS: PANTOPRAZOLE 40 MG/10 ML VIAL IV SCH (10:03)
[2018-12-11 13:00] VITALS: BP 131/82
--- NOTE | 2018-12-11 13:52 | NUR ---
Nutrition Follow-up Notes Wt.: 70.5 kg as of yesterday. Noted 5.9 kg weight loss in last 3 days likely d/t ? fluid loss aeb negative I & Os for past few days. Pt's on oxygen via nasal cannula, NGT in place, no immediate family member at bedside except for sitter when rounded this morning. Pt's confused & refusing meals, per sitter. Pt's NPO yesterday, currently on Clear Liquid diet , no record of food intake yet at this time. Noted pt's for active Tele Psych consult. Est. Needs: 1450 kcal to 1800 kcal (20-25 kcal/kgBW), 72-86 gms pro (1.0-1.2 gms/kgBW). Will continue to monitor pertinent labs and reassess nutrient needs prn. reassessed as Ammonia wnl Labs: Gluc 113 H, Na 146 H, Cl 116 H, Ca 7.8 L, Cr 1.09 H, Tor robbie 4.5 H, AST 330 H, ALT 782 H, ALP 198 H, Alb 2.8 L. Skin: Santana scale 9, high risk, pt's left lateral flank rash per configuration manager GI: Pt had 1 BM this morning per configuration manager. PES: Altered nutrition related lab values r/t current/chronic medical condition aeb hyperglycemia, hypocapnia,hyperchloremia, elev. BUN, LFTs, hyperbilirubinemia, hypocalcemia and mod hypoalbuminemia Increased nutrient needs r.t chronic current medical condition aeb ALOC. mod hypoalbuminemia, Acute abdominal pain,Elevated liver enzymes,Clear Liquid diet Will continue to monitor PO intake, skin status, pertinent labs and weight trend. F/u in 2 to 3 days. Rec.: 1.) Advance gradually oral diet (Soft Low Chol, Low Fat diet) when medically appropriate. 2.) If Albumin level continues trending down with improved Cr level, consider Prostat 1 pkt BID. 3.) Continue close supervision and feeding assistance prn during meals 4.) Refer to RD for further nutrition educ. and weight monitoring upon discharge. 5.) Continue current plan of care.
[2018-12-11] MEDS: D5W/SOD CHL 0.45%/KCL 20MEQ 1,000 ML IV SCH ×3 (14:59→23:04)
--- NOTE | 2018-12-11 15:00 | NUR ---
Patient thrashing in bed, remains non responsive to verbal stimuli, responds to pain with facial grimacing. Medicated with prescribed pain medication. Sitter remains at bedside for patient safety.
--- NOTE | 2018-12-11 15:19 | NUR ---
assessment Naun patients sig. other has returned my call. Per Naun prior to admission patient lived home with him and functioned independently. Per Naun this is new onset of confusion. Per Naun he knew that patient used meth off and on. Per Naun patient has family out of state and he does not know how to reach them. Per Naun he will take patient back home on discharge. Patient has no POA or advanced directive. collection teller and bedside nurse notified. Addendum: 12/11/18 at 1522 by Macy HOOVER Amended: Links added.
--- NOTE | 2018-12-11 15:45 | NUR ---
Patient continues to appear agitated, less thrashing around but continues with facial grimacing, heart rate 133 bpm, sinus tachycardia. Medicated with prescribed Ativan. Sitter remains at bedside for patient safety.
[2018-12-11 16:38] VITALS: BP 139/96
--- NOTE | 2018-12-11 16:45 | NUR ---
Patient now calm, resting with eyes closed, respiration even and unlabored. Heart rate now 92 bpm, sinus rhythm. sitter remains at bedside for patient safety.
[2018-12-11 18:35] LABS: Albumin 2.2 g/dL (3.4-5.0); BUN/Creatinine Ratio 8.5; Calcium 7.1 mg/dL (8.5-10.1); Potassium 3.7 mmol/L (3.5-5.1)
[2018-12-11 18:38] LABS: Bilirubin, Total 3.9 mg/dL (0.2-1.0); Total Protein 6.5 g/dL (6.4-8.2)
[2018-12-11] MEDS: LACTULOSE 20Gm/30ML SOLN PO SCH ×2 (19:11→22:06)
--- NOTE | 2018-12-11 19:20 | NUR ---
Care endorsed to LIT Shrestha, night nurse.
--- NOTE | 2018-12-11 19:42 | NUR ---
PT resting in bed w/eyes closed. Appears comfortable, no s/s of distress, sob, or pain at this time. lead ruby on rails developer at bedside. Will continue to monitor q1h and prn.
[2018-12-11 21:40] VITALS: BP 136/100
[2018-12-12] MEDS: LORazepam 2MG/ML-1ML VIAL IV PRN ×5 (00:30→20:31)
--- NOTE | 2018-12-12 00:51 | NUR ---
PAGED HOSPITALIST PATIENT EXHIBITED POSSIBLE SIGNS OF ASPIRATION. NEW/WORSENING RALES, RONCHI, AND WHEEZING BREATH SOUNDS AUSCULTATED IN ADDITION TO LABORED BREATHING WHICH IS BASELINE FOR PATIENT. MUCUS PLUGS SUCTIONED FROM MOUTH. PATIENT'S HEAD OF BED UP 45 DEGREES SINCE ADMINISTERING MEDS THROUGH NG TUBE. DIFFICULTY CHECKING PLACEMENT OF NG TUBE DUE TO ABDOMINAL GIRTH AND PATIENT'S HEAVY BREATHING. LAST CHEST XRAY NOTED ON 12/08 WHICH RECOMMENDED ADVANCING OF TUBE PLACEMENT. PATIENT HEART RATE 110 WHICH IS UNCHANGED, SATS 96% ON 2L NC. RESPIRATIONS MORE LABORED THAN USUAL AND RESPIRATION RATE 24. ALL OTHER VITALS WNL. PAGED HOSPITALIST FOR ORDERS FOR STAT CHEST XRAY AND ORDERS. AWAITING CALL BACK.
--- NOTE | 2018-12-12 01:05 | NUR ---
HOSPITALIST RETURNED CALL STAT CHEST XRAY ORDERED. WILL AWAIT RESULTS AND CALL FOR ORDERS.
--- NOTE | 2018-12-12 02:14 | NUR ---
NGT REMOVED THEN REINSERTED. NGT TIP NOT VISUALIZED ON CXR. 2ND CXR CONFIRMED GOOD TIP PLACEMENT. SIGNS FOR ASPIRATION UNCONFIRMED. INFORMED HOSPITALIST BUT WILL AWAIT OFFICIAL RADIOLOGY REPORT. PATIENT VITALS STABLE AND CONDITION APPEARS UNCHANGED. WILL CONTINUE TO MONITOR AND FOLLOW.
[2018-12-12] MEDS: MORPHINE SULFATE 4 MG/ML SYR/VIAL IV PRN ×4 (04:09→20:55)
[2018-12-12 05:00] VITALS: BP 150/109
--- NOTE | 2018-12-12 05:01 | NUR ---
PAGED HOSPITALIST PATIENT SUSTAINING IN THE MID 140'S TO 170'S AFLUTTER FOR APPX 10 MINUTES. 02 SATS 97% ON 2L. RESP RATE 30 W/LABORED BREATHING. (NOT CHANGED). THRASHING AND UNRESPONSIVE, UNCHANGED. TEMP 100.1 AND BP 150/109 - SLIGHT ELEVATION. STILL AWAITING RADIOLOGY REPORT FOR CHEST XRAY. AWAITING CALL BACK.
--- NOTE | 2018-12-12 05:31 | NUR ---
HOSPITALIST RETURNED CALL RADIOLOGY CALLED TO READ AND REPORT CXR STAT. AWAITING RESULTS. LABS ALSO ORDERED FOR PATIENT. SEE ORDERS.
--- NOTE | 2018-12-12 05:57 | NUR ---
PATIENT CONVERTED BACK TO SINUS HR 111 - ST; AT BASELINE.
[2018-12-12 06:17] LABS: Basophils # (auto) 0.1 uL; Basophils % (auto) 0.6 % (0.0-2.0); Eosinophils # (auto) 0.1 uL; Monocytes # (auto) 1.4 uL; Nucleated Red Blood Cells % 0.2 %
[2018-12-12 06:19] LABS: Hematocrit 36.6 % (36.0-46.0); Hemoglobin 11.5 g/dL (12.2-16.2); Lymphocytes # (auto) 3.3 uL; Lymphocytes % (auto) 26.4 % (10.0-50.0); Mean Corpuscular Hemoglobin 26.5 pg (28.0-32.0); Mean Corpuscular Hgb Conc. 31.3 g/dL (32.0-36.0); Mean Corpuscular Volume 84.8 fL (80.0-100.0); Monocytes % (auto) 11.2 % (0.0-12.0); Neutrophils # (auto) 7.7 uL; Neutrophils % (auto) 60.8 % (37.0-80.0); Platelet Count (auto) 239 10^3/uL (140-450); Red Blood Cells 4.32 10^6/uL (4.0-5.20); Red Cell Distribution Width 18.2 % (11.8-14.3); White Blood Cell 12.6 10^3/uL (4.4-10.8)
[2018-12-12 06:33] LABS: Potassium 3.9 mmol/L (3.5-5.1)
[2018-12-12 06:37] LABS: Albumin 2.3 g/dL (3.4-5.0); Calcium 7.3 mg/dL (8.5-10.1)
[2018-12-12 06:42] LABS: Bilirubin, Total 3.4 mg/dL (0.2-1.0); Total Protein 6.9 g/dL (6.4-8.2)
--- NOTE | 2018-12-12 07:30 | NUR ---
OPENING NOTE ASSUMED CARE OF PT. PT IS SITTING ON BED, HOB HIGH-FOWLERS. PT IS ANXIOUS AND RESTLESS. PT IS MOANING AND GROANING. PT ON ROOM AIR, O2 SATURATION 96%. NO SIGNS OF SOB/DISTRESS NOTED. PT ON TELE #12, HR 107. FROST CATH INTACT, PATENT AND DRAINING CLOUDY LIGHT FERNY URINE WITH SEDIMENTS. RIGHT NEPHROSTOMY TUBE DRESSING CLEAN DRY AND INTACT. NEPHROSTOMY TUBE INTACT, PATENT AND DRAINING YELLOW URINE. SAFETY PRECAUTIONS IN PLACE INCLUDING BED SET TO LOWEST POSITION/LOCKED. BEDSIDE RAILS UP X2. ASPIRATION PRECAUTIONS IN PLACE, SITTER AT BEDSIDE. WILL CONTINUE TO MONITOR Q 1HR AND PRN. Addendum: 12/12/18 at 1036 by Adrianne Betancourt RN NGT IN PLACE CLAMPED, TIP AT 45 MARKING
[2018-12-12 09:00] VITALS: BP 128/80
--- NOTE | 2018-12-12 09:38 | NUR ---
PATIENT TEMPERATURE IS 100.5. COOLING MEASURES IN PLACE. WILL CONTINUE TO MONITOR.
[2018-12-12] MEDS: LACTULOSE 20Gm/30ML SOLN PO SCH ×2 (10:00→21:44)
--- NOTE | 2018-12-12 10:40 | NUR ---
WOUND CARE NOTE: Patient seen by wound care team due to low Santana score of 9. Nursing also took photos previous shift of bilateral ankles. Patient seen with bedside RNEnid. Patient currently drowsy, alert but only oriented to self. Sitter at bedside. Patient is noted to continuously kick and move legs. Patient noted to have on left lateral ankle red, blanching intact skin. Nursing placed foam dressing for prevention. On right lateral ankle, patient with open blister from friction measuring 1x1cm. Wound is dry, no drainage noted and surrounding skin pink blanching and intact. Nursing with foam over for prevention. RECOMMENDATIONS: Dietary Consult; Turn q2hrs; Nursing to cleanse bilateral ankles with mild soap and water, pat dry, and cover with foam dressing for friction prevention; Nursing to also cleanse buttocks/chasity area with mild soap and water, pat dry and apply ZGUARD BID/PRN soiling; wound care team to follow. Addendum: 12/12/18 at 1403 by HUGO FENG RN Amended: Links added.
[2018-12-12] MEDS: PANTOPRAZOLE 40 MG/10 ML VIAL IV SCH (12:05)
[2018-12-12] MEDS: AMIODARONE HCL 200 MG TAB PO SCH ×2 (12:09→21:44)
[2018-12-12] MEDS: D5W/SOD CHL 0.45%/KCL 20MEQ 1,000 ML IV SCH ×2 (12:24→20:32)
[2018-12-12 13:00] VITALS: BP 134/89
--- NOTE | 2018-12-12 14:30 | NUR ---
RE: DRESSING CHANGE CLEANSED BILATERAL ANKLES WITH MILD SOAP AND WATER, PAT DRY AND COVERED WITH OPTIFOAM DRESSING.
[2018-12-12 17:00] VITALS: BP 137/91
--- NOTE | 2018-12-12 19:28 | NUR ---
ENDORSED CARE TO LIT BUSH.
--- NOTE | 2018-12-12 20:06 | NUR ---
SHIFT OPEN PATIENT IN BED. THRASHING AND MOANING OFF AND ON. UNCHANGED FROM PRIOR. BED IN LOWEST LOCKED POSITION AND ACTIVITY LEADER AT BEDSIDE. WILL CONTINUE TO MONITOR Q1HR AND PRN.
[2018-12-12 22:00] VITALS: BP 140/87
[2018-12-13] MEDS: LORazepam 2MG/ML-1ML VIAL IV PRN ×6 (00:32→23:05)
[2018-12-13] MEDS: MORPHINE SULFATE 4 MG/ML SYR/VIAL IV PRN ×3 (02:06→20:02)
[2018-12-13] MEDS: D5W/SOD CHL 0.45%/KCL 20MEQ 1,000 ML IV SCH (04:24)
[2018-12-13 05:00] VITALS: BP 127/79
[2018-12-13 06:50] LABS: Potassium 5.2 mmol/L (3.5-5.1)
[2018-12-13 06:58] LABS: Albumin 2.4 g/dL (3.4-5.0); BUN/Creatinine Ratio 9.3; Bilirubin, Total 4.2 mg/dL (0.2-1.0); Calcium 7.7 mg/dL (8.5-10.1); Total Protein 7.1 g/dL (6.4-8.2)
--- NOTE | 2018-12-13 07:30 | NUR ---
OPENING NOTE ASSUMED CARE OF PT. PT IS SITTING ON BED, HOB HIGH-FOWLERS. PT IS ANXIOUS AND RESTLESS. PT IS MOANING AND GROANING. PT ON 2 LPM/NC, O2 SATURATION 94%. NO SIGNS OF SOB/DISTRESS NOTED. PT ON TELE #12, HR 118. FROST CATH INTACT, PATENT AND DRAINING CLOUDY DARK FERNY URINE WITH SEDIMENTS. RIGHT NEPHROSTOMY TUBE DRESSING CLEAN DRY AND INTACT. NEPHROSTOMY TUBE INTACT, PATENT AND DRAINING YELLOW URINE. SAFETY PRECAUTIONS IN PLACE INCLUDING BED SET TO LOWEST POSITION/LOCKED. BEDSIDE RAILS UP X2. ASPIRATION PRECAUTIONS IN PLACE, SITTER AT BEDSIDE. WILL CONTINUE TO MONITOR Q 1HR AND PRN.
[2018-12-13 08:37] VITALS: BP 133/95
--- NOTE | 2018-12-13 09:24 | NUR ---
RECEIVED CALL FROM LAURENCE MILLER FROM [facility] AND SHE RELAYED THE FOLLOWING: PT'S PCP IS DR GILBERTO GOMEZ AND THE PT HAD A PRESCRIPTION FOR SEROQUEL AND REFERRED TO NEUROLOGY ON Oct BUT PT NEVER KEPT APPT. DR GOMEZ WOULD LIKE TO HAVE PT HAVE NEURO CONSULT IN [facility] SHE WOULD SHE COULD PRESCRIBE ATIVAN AND WILL NOT GIVE ATIVAN UNLESS NEURO CONSULT DONE. DR CEDILLO STATED PT CAN HAVE NEURO CONSULT OUTPT Addendum: 12/13/18 at 1354 by Sho Karimi RN CM WRONG PT
[2018-12-13] MEDS: AMIODARONE HCL 200 MG TAB PO SCH (10:13)
[2018-12-13] MEDS: PANTOPRAZOLE 40 MG/10 ML VIAL IV SCH (10:13)
[2018-12-13] MEDS: LACTULOSE 20Gm/30ML SOLN PO SCH (10:37)
[2018-12-13] MEDS ORDERED: ALBUTEROL SULF 2.5 MG/0.5ML(0.5%) NEB SOLN NEB ONE (11:00)
[2018-12-13] MEDS: SODIUM BICARBONATE 50ML VIAL 50 ML in D5W/SOD CHL 0.45% 1,000 ML IV SCH ×2 (11:20→23:05)
--- NOTE | 2018-12-13 12:55 | NUR ---
Nutrition Follow-up Notes Wt.: 73.0 kg Pt's on oxygen via nasal cannula,confused no immediate family member at bedside except for sitter when rounded this morning. Pt's currently on clear liq diet with inadequate PO of 0% x 4 per RN doc due to pt`s mental status Est. Needs: 1450 kcal to 1800 kcal (20-25 kcal/kgBW), 72-86 gms pro (1.0-1.2 gms/kgBW). Will continue to monitor pertinent labs and reassess nutrient needs prn. reassessed as Ammonia wnl Labs: K 5.2 H, GLU 127 H, CREAT 1.27 H, ALB 2 .4L, AST/ALT 279/499 H Skin: Santana scale 13, mod risk, pt's left lateral flank rash per cigarette filter inspector GI: Pt had 3 BM yesterday per cigarette filter inspector. PES: Altered nutrition related lab values r/t current/chronic medical condition aeb hyperglycemia, hypocapnia,hyperchloremia, elev. BUN, LFTs, hyperbilirubinemia, hypocalcemia and mod hypoalbuminemia Increased nutrient needs r.t chronic current medical condition aeb ALOC. mod hypoalbuminemia, Acute abdominal pain,Elevated liver enzymes,Clear Liquid diet Will continue to monitor PO intake, skin status, pertinent labs and weight trend. F/u in 2 to 3 days. Rec.: 1.) Advance gradually oral diet (Soft Low Chol, Low Fat diet) when medically appropriate. 2.) If Albumin level continues trending down with improved Cr level, consider Prostat 1 pkt BID. 3.) Continue close supervision and feeding assistance prn during meals 4.) Refer to RD for further nutrition educ. and weight monitoring upon discharge. 5.) Consider alternate nutrition support if pt continues to have low/no PO. 6)Continue current plan of care.
--- NOTE | 2018-12-13 14:05 | NUR ---
re-assessment Per consult does Naun have Power of Casing Cleaner? Need consent for peg tube, Is he capable of caring for her needs. Would SNF be more realistic. Naun does not have POA. Naun is patients sig. other for many years. There is no family available. Patient does not have a payer source for SNF. Per consult Hospice consult. Patient qualifies for hospice with EF of 15%. I have left a message for Naun to return my call. Addendum: 12/13/18 at 1410 by Macy Burns Amended: Links added.
[2018-12-13 17:58] VITALS: BP 114/59
--- NOTE | 2018-12-13 19:22 | NUR ---
ENDORSED CARE TO LIT MASCORRO.
--- NOTE | 2018-12-13 19:23 | NUR ---
Opening Shift Note Received report from LIT Silver and assumed care of patient.
--- NOTE | 2018-12-13 19:45 | NUR ---
Initial assessment: Patient is on Bipap. Patient is confused and restless.Not on respiratory distress. On continuous pulse oximetry with O2 sat 100%. Sitter at the bedside .Will continue to monitor for changes .
[2018-12-13 20:00] VITALS: BP 115/85
--- NOTE | 2018-12-13 22:00 | NUR ---
Patient bathe/linen change Patient given bed bath bath. Skin integrity assessed for any changes. Perineal care done with soap and water .Redness and rashes noted in bilateral groin and sacral area. Keep affected area clean and dry . Barrier cream applied to the area.Linens changed. Patient repositioned for comfort.
--- NOTE | 2018-12-13 23:05 | NUR ---
Patient is restless and agitated. Patient unable to relax , rest and appears uncomfortable all the time. Will medicate patient with Ativan 1 mg IV.
[2018-12-13 23:27] VITALS: BP 115/85
[2018-12-14] VITALS: BP 127/79
--- NOTE | 2018-12-14 | NUR ---
Called/paged ALTHEA Reyes paged re: patient continuous being restless and agitated . Waiting for call back. Continue care.
[2018-12-14] MEDS ORDERED: diphenhdrAMINE HCL 50 MG/1 ML VL IV ONE (00:30)
[2018-12-14] MEDS: AMIODARONE HCL 200 MG TAB PO SCH ×2 (01:16→09:30)
[2018-12-14] MEDS: LACTULOSE 20Gm/30ML SOLN PO SCH ×2 (01:16→10:00)
[2018-12-14 02:30] VITALS: BP 116/78
[2018-12-14] MEDS ORDERED: PPN PER PHARMACY 0 ML IV SCH (03:15)
--- NOTE | 2018-12-14 04:27 | NUR ---
RT NOTE RT CHECKED ON PT EVEN THOUGH PT IS OFF BIPAP AT THIS TIME. PT SPO2 100 VIA 3LPM NC, CR 88, RR 22. PT IS MOVING AND SEEMS AGITATED BUT IS SHOWING NO SIGNS OF RESP DISTRESS.
[2018-12-14 05:30] VITALS: BP 118/81
[2018-12-14] MEDS: MORPHINE SULFATE 4 MG/ML SYR/VIAL IV PRN ×3 (06:36→15:37)
[2018-12-14] MEDS: SODIUM BICARBONATE 50ML VIAL 50 ML in D5W/SOD CHL 0.45% 1,000 ML IV SCH ×4 (06:36→23:26)
--- NOTE | 2018-12-14 06:50 | NUR ---
Respiratory note: ROUTINE CHECK. PT IS OFF BIPAP. HR 90, RR 20, POX 100% ON 3L/M NC. NO SOB OR DISTRESS NOTED.
[2018-12-14 06:53] LABS: Potassium 4.2 mmol/L (3.5-5.1)
[2018-12-14 07:04] LABS: Albumin 2.3 g/dL (3.4-5.0); BUN/Creatinine Ratio 13.6; Bilirubin, Total 5.7 mg/dL (0.2-1.0); Calcium 7.6 mg/dL (8.5-10.1); Total Protein 7.1 g/dL (6.4-8.2)
[2018-12-14 07:27] LABS: Magnesium 1.9 mg/dL (1.6-2.6)
--- NOTE | 2018-12-14 07:30 | NUR ---
Patient calm,resting , appears not in pain. No s/s of respiratory distress .Report given to RN Aidee and to assume care.
[2018-12-14 07:31] LABS: Phosphorus 2.3 mg/dL (2.5-4.90); Pre Albumin < 3.0 mg/dL (20.0-40.0); Triglycerides 158 mg/dL (< 150)
--- NOTE | 2018-12-14 08:00 | NUR ---
ASSESSMENT NOTE PT IS RESTING IN BED IN LOW NICOLE POSITION, SELF REPOSITION FREQUENTLY NON STOP WITH RESTLESSNESS AT ALL TIMES, RT NARES NGT NOTED, FROST CATHETER TO GRAVITY WITH VERY DARK ORANGE URINE, A LARGE SKIN SCRATCH NOTED ON LEFT UPPER BACK, SKIN RASH NOTED INSIDE THE BUTTOCK FOLDS AREA AND PERINEAL AREA, SKIN AT BOTH BILATERAL OUTER SIDE OF BOTH ANKLE, SIDE RAILS ARE PADDED, PT ROOM NEXT TO NURSING, SITTER AT BED SIDE AT ALL TIMES, ON CONTINUOUS PULSE OXIMETER AT ALL TIMES, CONTINUE MONITORING.
[2018-12-14 09:00] VITALS: BP 116/78
[2018-12-14] MEDS: PANTOPRAZOLE 40 MG/10 ML VIAL IV SCH (09:29)
--- NOTE | 2018-12-14 10:00 | NUR ---
BM PT HAS LARGE LOOSE BM, KEPT DRY AND CLEAN.
--- NOTE | 2018-12-14 10:00 | NUR ---
HYDRATION 150 ML OF WATER GIVEN TO PT VIA NGT, TOLERATED WELL.
--- NOTE | 2018-12-14 10:33 | NUR ---
PER DR BARTH TO CHANGE MORPHINE TO EVERY 4 HOUR
--- NOTE | 2018-12-14 12:00 | NUR ---
PT IS SLEEPING, NO DISTRESS NOTED.
[2018-12-14 13:00] VITALS: BP 129/84
--- NOTE | 2018-12-14 13:22 | NUR ---
PATIENT STARTED TO WAKE UP, AND CONTINUE TO BE RESTLESS, AND MOVING AROUND FREQUENTLY, TRY TO KEEP PT SAFE AND CLEAN AT ALL TIMES.
--- NOTE | 2018-12-14 14:10 | NUR ---
VISITORS PT BOY FRIENDS AT BED SIDE, TRYING TO FIND PT'S BROTHER TANYA PHONE NUMBER TO REACH HIM OUT.
--- NOTE | 2018-12-14 16:00 | NUR ---
NGT CAME OUT WHILE PATIENT MOVING FREQUENTLY IN BED, INTACT,NO DISTRESS NOTED
--- NOTE | 2018-12-14 16:30 | NUR ---
IV insertion IV access obtained, via clean sterile technique by inserting 14 gauge catheter at after attempt(s). IV secured properly. No trauma to site. Patient tolerated well. NOTE: Addendum: 12/14/18 at 1743 by Aidee Lackey RN WRONG PT
--- NOTE | 2018-12-14 16:30 | NUR ---
NGT INSERTION TO PT'S RT NARES, 14 F, FIRST ATTEMPT, TOLERATED WELL, AIR SOUNDS ARE AUDIBLE AT EPIGASTRIC AREA, SECURED WITH TAPE.
--- NOTE | 2018-12-14 17:30 | NUR ---
REPORT GIVEN TO DELERIN RN WITH ALL PATIENT UPDATE, CONTINUE MONITORING.
[2018-12-14] MEDS: InsuLIN REG 1unit/0.01ml Soln (100units/ml) SC SCH (18:00)
[2018-12-14] MEDS ORDERED: DEXTROSE (50%) 50ML SYRG IV SCH (18:00)
[2018-12-14] MEDS: ACCU-CHEK COMFORT CURVE STRIP VI SCH (18:05)
--- NOTE | 2018-12-14 18:15 | NUR ---
TRANSFER PATIENT TO ROOM 279A, PT IS STABLE NO DISTRESS NOTED, OXYGEN 3 L NC, CONTINUE MONITORING.
--- NOTE | 2018-12-14 18:25 | NUR ---
Received reports from Aidee RN, patient been upgraded to MARCOS status. Patient is restless, inappropriate and no eye contact. Placed on fall precaution, bed alarm on and side rails. MARCOS protocol will be initiated. Will continue to monitor.
--- NOTE | 2018-12-14 19:30 | NUR ---
received pt from day rn poc reviewed
--- NOTE | 2018-12-14 19:45 | NUR ---
pt pulled out ngt during shift jorgito saunders
[2018-12-14] MEDS ORDERED: PPN PER PHARMACY IV NR ×7 (20:00)
--- NOTE | 2018-12-14 21:00 | NUR ---
ppn started at 42 ml/hr as ordered
[2018-12-14 22:00] VITALS: BP 117/85
[2018-12-14] MEDS: LORazepam 2MG/ML-1ML VIAL IV PRN (22:06)
--- NOTE | 2018-12-14 22:43 | NUR ---
ngt replaced 14 fr left nare, order placed for cxr per protocol
[2018-12-14 23:39] LABS: INR 1.75 (0.9-1.15); Prothrombin Time 18.1 sec (9.27-12.13)
--- NOTE | 2018-12-15 00:30 | NUR ---
pts cxr clear ngt in place pts amiodarone given as ordered thru ngt
[2018-12-15] MEDS: AMIODARONE HCL 200 MG TAB PO SCH ×3 (01:04→22:35)
[2018-12-15] MEDS: ACCU-CHEK COMFORT CURVE STRIP VI SCH ×4 (01:06→18:52)
--- NOTE | 2018-12-15 01:22 | NUR ---
pt remains wild and restless, turning on stomach mittens on pt attempts to remove all tubes and iv's attempts made to orient pt to poc , sitter at bedside for pts safety
[2018-12-15] MEDS: LACTULOSE 20Gm/30ML SOLN PO SCH ×3 (02:23→22:35)
[2018-12-15] MEDS: SODIUM BICARBONATE 50ML VIAL 50 ML in D5W/SOD CHL 0.45% 1,000 ML IV SCH ×2 (04:00→15:15)
[2018-12-15] MEDS: MORPHINE SULFATE 4 MG/ML SYR/VIAL IV PRN ×4 (04:02→23:22)
[2018-12-15 04:46] VITALS: BP 127/87
--- NOTE | 2018-12-15 05:15 | NUR ---
pt restless non responsive to verbal commands, sitter at bedside for pts safety
[2018-12-15] MEDS: InsuLIN REG 1unit/0.01ml Soln (100units/ml) SC SCH ×4 (06:00→18:52)
--- NOTE | 2018-12-15 06:58 | NUR ---
report given to am nurse poc reviewed, pt remains restless turning and twisting, mittens on sitter at bedside, attempts made to orient pt to surroundings,positioned with side rails up and hob up
--- NOTE | 2018-12-15 07:45 | NUR ---
Respiratory note: ROUTINE CHECK. PT REMAINS OFF BIPAP. HR 105, RR 18, POX 100% ON 4L NC. BREATH SOUNDS BILATERAL COARSE CRACKLES/RHONCHI. PT IS RESTLESS AND AGITATED BUT NO SOB OR RESPIRATORY DISTRESS NOTED AT THIS TIME. MIRROR SPECIALIST AT BEDSIDE. WILL CONTINUE TO MONITOR ORDERED.
--- NOTE | 2018-12-15 08:00 | NUR ---
RESTLESS IN BED NOT FOLLOWING VERBAL COMMANDS EYES CLOSED RESPIRATIONS EVEN AND NON LABORED NO SIGNS OF DISTRESS JUST RESTLESS. NGT TO LEFT NARES FOR MEDICATION ADMINISTRATION. PPN INFUSING AT 42 MLS /HR. FROST CATHETER IN PLACE WITH FERNY URINE ABOUT 70MLS. NEPHROSTOMY TUBE IN PLACE WITH NO URINE IN THE BAG JUST TRACE AMOUNT OF BLOOD. SITTER AT BEDSIDE FOR PATIENT SAFETY. WILL CONTINUE TO MONITOR.
--- NOTE | 2018-12-15 08:10 | NUR ---
MEDICATED WITH 1 MG MORPHINE SULFATE SLOW IV PUSH FOR SIGNS OF PAIN, FACIAL GRIMACING, AND RESTLESSNESS.
--- NOTE | 2018-12-15 09:00 | NUR ---
VITAL SIGNS STABLE BP 120/82 PULSE 106 RESPIRATIONS 24 OXYGEN SATURATION 100% ON 2 LITERS VIA NASAL CANNULA TEMP 98.0. RESTING MORE COMFORTABLY. NO SIGNS OF DISTRESS.
[2018-12-15 09:40] VITALS: BP 120/82
[2018-12-15] MEDS: PANTOPRAZOLE 40 MG/10 ML VIAL IV SCH (09:56)
[2018-12-15 10:18] LABS: BUN/Creatinine Ratio 17.5; Calcium 7.4 mg/dL (8.5-10.1); Potassium 3.9 mmol/L (3.5-5.1)
[2018-12-15 10:19] LABS: Eosinophils # (auto) 0.1 uL; Hematocrit 32.4 % (36.0-46.0); Hemoglobin 9.8 g/dL (12.2-16.2); Mean Corpuscular Hemoglobin 26.1 pg (28.0-32.0)
[2018-12-15 10:20] LABS: Bilirubin, Total 4.4 mg/dL (0.2-1.0); Phosphorus 2.7 mg/dL (2.5-4.90); Total Protein 6.1 g/dL (6.4-8.2)
[2018-12-15 10:21] LABS: Basophils # (auto) 0 uL; Basophils % (auto) 0.3 % (0.0-2.0); Eosinophils % (auto) 0.8 % (0.0-7.0); Lymphocytes # (auto) 2.5 uL; Lymphocytes % (auto) 19.3 % (10.0-50.0); Mean Corpuscular Hgb Conc. 30.1 g/dL (32.0-36.0); Mean Corpuscular Volume 86.7 fL (80.0-100.0); Monocytes # (auto) 0.8 uL; Monocytes % (auto) 5.7 % (0.0-12.0); Neutrophils # (auto) 9.7 uL; Neutrophils % (auto) 73.9 % (37.0-80.0); Nucleated Red Blood Cells % 0.7 %; Platelet Count (auto) 195 10^3/uL (140-450); Red Blood Cells 3.74 10^6/uL (4.0-5.20); Red Cell Distribution Width 18.7 % (11.8-14.3); White Blood Cell 13.1 10^3/uL (4.4-10.8)
--- NOTE | 2018-12-15 12:07 | NUR ---
Nutrition Consult and Follow-up Notes Wt.: 78.5 kg based on bed scale as of yesterday. Pt's on oxygen via nasal cannula, bilateral mittens in place, confused, no immediate family member at bedside except for sitter, currently NPO with PPN @ 42 ml/hr providing 540 kcal, 430 NPCs and 50 gms pro. Pt with inadequate PN support d/t low initiation rate delivery of diluted formula aeb current PN infusion meets 30% to 37% of est caloric needs and 53% to 69% of est protein needs. Noted pt's to receive tonight another PPN @ 648 kcal, 60 gms pro and 408 NPCs. Est. Needs: 1450 kcal to 1800 kcal (20-25 kcal/kgBW), 72-93 gms pro (1.0-1.3 gms/kgBW d/t severe hypoalbuminemia). Will continue to monitor pertinent labs and reassess nutrient needs prn. Labs: Gluc 138 H, Na 150 H, Cl 117 H, BUN 25 H, Cr 1.43 H, Ca 7.4 L, Tpro 6.0 L, Alb 2 .0 L, AST/ALT 254/334 H, ALP 124 H; Prealb <3.0 L, Trig 158 H Skin: Santana scale 13, mod risk, pt's right lateral ankle pressure ulcers, left lateral flank rash per examiner rating clerk. Pls refer to bass string winder's notes 12/12/18 for further details re: tx plans. GI: Pt had 3x BM 12/12/18 per examiner rating clerk. PES: Altered nutrition related lab values r/t current/chronic medical condition aeb hyperglycemia, hypocapnia,hyperchloremia, elev. BUN, LFTs, hyperbilirubinemia, hypocalcemia and mod hypoalbuminemia Increased nutrient needs r.t chronic current medical condition aeb ALOC. mod hypoalbuminemia, Acute abdominal pain,Elevated liver enzymes,Clear Liquid diet Will continue to monitor NPO status, skin status, PN tolerance, pertinent labs and weight trend. F/u in 2 to 3 days. Rec.: 1.) If still NPO with PN support, consider gradual increase on calories and protein to meet at least 75% of est nutrient needs. 2.) Advance gradually oral diet (Soft Low Chol, Low Fat diet-per ST's diet texture recommendation) when medically appropriate. 2.) Refer to RD for further nutrition educ. and weight monitoring upon discharge. 5.) Consider alternate nutrition support if pt continues to have low/no PO. 6)Continue current plan of care. Thank you for this consult.
--- NOTE | 2018-12-15 13:00 | NUR ---
NO SIGNS OF DISTRESS DR BARTH NOTIFIED OF SODIUM LEVEL 150. VITAL SIGNS STABLE 98.4 PULSE 81 RESPIRATIONS 18 OXYGEN 100%ON 2 LITERS B/P 100/77.
[2018-12-15 13:02] VITALS: BP 110/77
--- NOTE | 2018-12-15 14:26 | NUR ---
DR KASPER AT BEDSIDE WOKE PATIENT UP SHE OPENS HER EYES DOES NOT FOLLOW COMMANDS. MINIMAL MOVEMENT ON RIGHT SIDE.
--- NOTE | 2018-12-15 15:53 | NUR ---
HEAD CT NOT ABLE TO BE DONE AT THIS TIME PATIENT THRASHING IN BED
[2018-12-15] MEDS: LORazepam 2MG/ML-1ML VIAL IV PRN ×2 (16:54→22:35)
[2018-12-15 17:00] VITALS: BP 113/74
--- NOTE | 2018-12-15 19:30 | NUR ---
Opening Shift Note Assumed care of patient, patient resting. No S/S of distress/SOB or pain. Sitter at bedside. Will continue to monitor for changes Q1hr and PRN.
[2018-12-15] MEDS ORDERED: PPN PER PHARMACY IV NR ×7 (20:00)
--- NOTE | 2018-12-15 20:00 | NUR ---
Patient taken down to Radiology for CT of head. Patient returned to floor and CT performed. Will await results.
[2018-12-15 22:00] VITALS: BP 105/72
--- NOTE | 2018-12-15 22:00 | NUR ---
Readjusted negrete due to leak. Will continue to monitor.
--- NOTE | 2018-12-15 23:00 | NUR ---
Patient is very restless. Patient tossing and turning. Patient had small BM - loose, brown. PRN ativan given. Patient opens eyes but aphasic. NG tube used for Medication administration. Also administered PRN pain medication. Will continue to monitor.
[2018-12-16] MEDS: InsuLIN REG 1unit/0.01ml Soln (100units/ml) SC SCH ×4 (01:00→18:00)
[2018-12-16] MEDS: ACCU-CHEK COMFORT CURVE STRIP VI SCH ×4 (01:00→18:00)
[2018-12-16] MEDS: LORazepam 2MG/ML-1ML VIAL IV PRN ×3 (02:10→12:49)
[2018-12-16] MEDS: MORPHINE SULFATE 4 MG/ML SYR/VIAL IV PRN ×3 (04:43→21:50)
[2018-12-16 05:00] VITALS: BP 122/88
[2018-12-16 05:56] LABS: Eosinophils # (auto) 0.2 uL; Hemoglobin 11.2 g/dL (12.2-16.2); Lymphocytes # (auto) 2.7 uL; Red Cell Distribution Width 18.7 % (11.8-14.3)
[2018-12-16 06:00] LABS: Basophils # (auto) 0.1 uL; Basophils % (auto) 0.5 % (0.0-2.0); Eosinophils % (auto) 1.6 % (0.0-7.0); Hematocrit 36.3 % (36.0-46.0); Lymphocytes % (auto) 20.1 % (10.0-50.0); Mean Corpuscular Hgb Conc. 30.8 g/dL (32.0-36.0); Mean Corpuscular Volume 87.6 fL (80.0-100.0); Monocytes % (auto) 7.2 % (0.0-12.0); Neutrophils # (auto) 9.6 uL; Neutrophils % (auto) 70.6 % (37.0-80.0); Nucleated Red Blood Cells % 0.6 %; Platelet Count (auto) 223 10^3/uL (140-450); Red Blood Cells 4.15 10^6/uL (4.0-5.20); White Blood Cell 13.6 10^3/uL (4.4-10.8)
[2018-12-16 06:17] LABS: Albumin 2.1 g/dL (3.4-5.0); Calcium 7.6 mg/dL (8.5-10.1); Magnesium 2.1 mg/dL (1.6-2.6); Potassium 4.3 mmol/L (3.5-5.1)
[2018-12-16 06:23] LABS: Bilirubin, Total 4.7 mg/dL (0.2-1.0); Phosphorus 2.7 mg/dL (2.5-4.90); Total Protein 6.8 g/dL (6.4-8.2)
--- NOTE | 2018-12-16 06:29 | NUR ---
Patient has been very restless on and off. Patient is moaning at times while turning, but remains completely altered. Patient had 3 BM throughout the pm shift and approximately 400 ml void from negrete. VS WNL.
--- NOTE | 2018-12-16 06:42 | NUR ---
Patient removed IV from right FA due to constant tossing and turning. Will endorse to angie MURRIETA.
--- NOTE | 2018-12-16 06:43 | NUR ---
Unable to maintain tele leads on patients due to constant movement. Notified MARCOS monitors.
--- NOTE | 2018-12-16 08:00 | NUR ---
Opening Shift Note Assumed care of patient, awake and restless. Patient tossing and turning the bed. Will continue to monitor for changes Q1hr and PRN. Secured [place]helan and nephrostomy drainage bag to patient's leg to avoid her pulling them out while turning. Also secured IV and NG tube to avoid patient pulling them out.
[2018-12-16 09:00] VITALS: BP 105/66
--- NOTE | 2018-12-16 09:00 | NUR ---
Calm Patient calmed down after receiving Ativan. Sleeping with minimal movements.
--- NOTE | 2018-12-16 09:06 | NUR ---
DR KASPER PAGED
--- NOTE | 2018-12-16 09:52 | NUR ---
ROUNDING Dr Villalba rounded on patient.
[2018-12-16] MEDS: PANTOPRAZOLE 40 MG/10 ML VIAL IV SCH (10:00)
[2018-12-16] MEDS: LACTULOSE 20Gm/30ML SOLN PO SCH ×2 (10:00→22:30)
[2018-12-16] MEDS: AMIODARONE HCL 200 MG TAB PO SCH ×2 (10:40→23:01)
--- NOTE | 2018-12-16 10:59 | NUR ---
PATIENT INCONTINENT OF STOOL. FULL LINEN CHANGE COMPLETED, PATIENT CLEANED. PATIENT TRASHING IN BED. UNABLE TO PLACE PATIENT ON TELE MONITOR. SECURED ALL LINES, MITTENS IN PLACE, SITTER IN ROOM.
[2018-12-16 13:00] VITALS: BP 134/93
--- NOTE | 2018-12-16 13:40 | NUR ---
RESTRAINTS PATIENT HAS BEEN RESTLESS AND THRASHING AROUND IN BED ALL SHIFT. SITTER PRESENT. PATIENTS INCONTINENT AND ROLLS IN BM. PUSHES ARMS AND LEGS OUT IN BETWEEN BED RAILS EVEN WITH PADDING AND PILLOWS PRESENT. SHE ROLLS ON HER STOMACH AND PUSHES HER FACE INTO THE RAILING OR HEADBOARD. PATIENT VERY UNSAFE. SHE REMOVED HER NG TUBE. THIS NURSE CALLED DOCTOR TAB AND GOT AN ORDER TO USE RESTRAINTS. HE SAID TO CALL DOCTOR KASPER TO CHANGE OR INCREASE ATIVAN ORDER IT DOES NOT APPEAR TO BE WORKING. PATIENT HAS ALSO RECEIVED MORPHINE WITH NO SUCCESS. WRIST RESTRAINTS WERE APPLIED.
--- NOTE | 2018-12-16 14:00 | NUR ---
NGT Patient removed NGT. Dr Monreal rounding on patient. Per Dr Monreal reinsert NGT.
--- NOTE | 2018-12-16 14:21 | NUR ---
MEDICATION CHANGE CONTACTED DOCTOR KASPER PER DOCTOR BARTH REQUEST. DOCTOR RETURNED CALL AND SAID HE WILL COME UP AND SEE THE PATIENT. Addendum: 12/16/18 at 1422 by LILLIAM CHANG RN RN CONTACTED REGARDING INEFFECTIVENESS OF CURRENT ATIVAN AND MORPHINE ORDERS. REQUESTED TO INCORPORATE A NEW MEDICATION OR CHANGE CURRENT ORDERS.
--- NOTE | 2018-12-16 15:40 | NUR ---
Soft restraints TRU,LIDIA extremely agitated, pulling at lines or tubes. All comfort measures failed including reorientation, pain management, decreased stimuli, diversions/distractions, family involvement, and bathroom necessity. Restraints placed, see Restraint assessment for further charting. Patient tolerating well, sitter remains bedside.
[2018-12-16 16:24] LABS: INR 1.3 (0.9-1.15); Prothrombin Time 13.7 sec (9.27-12.13)
[2018-12-16 16:45] VITALS: BP 142/99
[2018-12-16] MEDS ORDERED: traMADol HCL 50 MG TAB PO PRN (17:00)
--- NOTE | 2018-12-16 17:40 | NUR ---
Soft restraints Neuro checks completed. Patient remains extremely agitated, pulling at lines or tubes. All comfort measures failed including reorientation, pain management, decreased stimuli, diversions/distractions, family involvement, and bathroom necessity. See Restraint assessment for further charting.
--- NOTE | 2018-12-16 19:17 | NUR ---
CARE ENDORSED Report given to LIT Harrington. Endorsed to reinsert NGT. Patient pre medicated for anxiety.
--- NOTE | 2018-12-16 19:33 | NUR ---
RECEIVED PATIENT FROM DAY SHIFT RN. PATIENT RESTING IN BED WITH EXTREMELY AGITATION AFTER ATIVAN GIVEN PRIOR TO SHIFT CHANGE PER DAY SHIFT RN. SOFT RESTRAINTS IN PLACE WITH NO CIRCULATION ISSUE. PATIENT MOANING WITH NO VERBAL RESPONSE. PUT PATIENT BACK TO TELE MONITOR. AND TRIED TO CALM PATIENT DOWN, BUT FAILED. FROST CATH AND NEPHROSTOMY TUBE IN PLACE DRAINING GRAVITY. DRESSING ON NEPHROSTOMY SITE C/D/I. BED IN LOWEST POSITION WITH SIDE RAILS UP X 2. CALL DOMINGUEZ WITHIN REACH. ALARM ON. SITTER AT BEDSIDE FOR SAFETY. CONTINUE TO MONITOR FOR CHANGES Q1H AND PRN.
[2018-12-16] MEDS ORDERED: PPN PER PHARMACY IV NR ×9 (20:00)
--- NOTE | 2018-12-16 21:00 | NUR ---
Nasogastric tube insertion Patient educated on need for NG tube. All questions addressed. NGT inserted per MD order. Placement verified by aspiration of stomach contents, auscultation and chest xray.
--- NOTE | 2018-12-16 21:50 | NUR ---
PATIENT IS MOANING AND AGITATED. PAIN MEDICATION GIVEN ORDERED TRY TO CALM PATIENT DOWN. CONTINUE TO MONITOR.
[2018-12-16 22:08] VITALS: BP 155/72
--- NOTE | 2018-12-16 22:25 | NUR ---
STILL WAITING FOR XR CONFORMATION OF NG TUBE PLACEMENT. CALLED RADIOLOGY DEPARTMENT, STAFF STATED WILL HAVE RESULT OUT SOON. CONTINUE CARE.
--- NOTE | 2018-12-16 23:01 | NUR ---
XR CONFIRMED. NG TUBE IN PLACE. SCHEDULED MEDICATION GIVEN ORDERED VIA NG TUBE. PATIENT TOLERATED WELL. CONTINUE TO MONITOR.
[2018-12-17] MEDS: ACCU-CHEK COMFORT CURVE STRIP VI SCH ×4 (00:15→19:49)
--- NOTE | 2018-12-17 00:15 | NUR ---
ACCU-CHECK, BS 117. NO COVERAGE. CONTINUE TO MONITOR.
[2018-12-17] MEDS: MORPHINE SULFATE 4 MG/ML SYR/VIAL IV PRN ×4 (04:03→21:22)
--- NOTE | 2018-12-17 04:04 | NUR ---
PAIN MEDICATION GIVEN FOR PAIN MOANING AND AGITATED FOR POSSIBLE PAIN. CONTINUE TO MONITOR.
[2018-12-17 05:21] VITALS: BP 136/79
[2018-12-17] MEDS: InsuLIN REG 1unit/0.01ml Soln (100units/ml) SC SCH ×4 (06:00→18:00)
--- NOTE | 2018-12-17 06:19 | NUR ---
ACCU-CHECK, BS 122. NO COVERAGE. CONTINUE TO MONITOR.
--- NOTE | 2018-12-17 07:35 | NUR ---
Opening shift note: Assumed care of patient , awake and restless. Patient turning and moaning. Nephrostomy tube and Whelan catheter in place and secured. NGT and IV in place and secured. Bed at lowest position and call light at reach. Sitter at bedside. Will continue to monitor Q1hr and as needed.
[2018-12-17 07:37] LABS: Albumin 2.1 g/dL (3.4-5.0); Basophils # (auto) 0.1 uL; Basophils % (auto) 0.5 % (0.0-2.0); Calcium 7.8 mg/dL (8.5-10.1); Eosinophils # (auto) 0 uL; Eosinophils % (auto) 0.3 % (0.0-7.0); Hematocrit 30.4 % (36.0-46.0); Hemoglobin 9.6 g/dL (12.2-16.2); Lymphocytes # (auto) 2.2 uL; Lymphocytes % (auto) 19.5 % (10.0-50.0); Magnesium 2.2 mg/dL (1.6-2.6); Mean Corpuscular Hemoglobin 26.9 pg (28.0-32.0); Mean Corpuscular Hgb Conc. 31.4 g/dL (32.0-36.0); Mean Corpuscular Volume 85.7 fL (80.0-100.0); Monocytes # (auto) 0.7 uL; Neutrophils # (auto) 8.4 uL; Neutrophils % (auto) 73.7 % (37.0-80.0); Nucleated Red Blood Cells % 0.7 %; Platelet Count (auto) 184 10^3/uL (140-450); Potassium 4.4 mmol/L (3.5-5.1); Red Blood Cells 3.55 10^6/uL (4.0-5.20); Red Cell Distribution Width 18.2 % (11.8-14.3); White Blood Cell 11.3 10^3/uL (4.4-10.8)
[2018-12-17 07:40] LABS: BUN/Creatinine Ratio 17.7; Bilirubin, Total 5.2 mg/dL (0.2-1.0); Phosphorus 3.1 mg/dL (2.5-4.90); Total Protein 6.4 g/dL (6.4-8.2)
--- NOTE | 2018-12-17 07:40 | NUR ---
Soft Restraints: Jacinda Martinez, extremely agitated pulling at lines /tubes. All comfort measures failed including re-orientation, pain management, decreased stimuli, diversion/distraction and family assessment. Restraints placed, see Restraints assessment for further charting. Patient tolerating well. Sitter at bedside. Addendum: 12/17/18 at 1103 by Reva Farmer RN Please disregard family assessment . And include family involvement .
[2018-12-17 08:00] VITALS: BP 137/86
[2018-12-17 09:00] VITALS: BP 137/86
[2018-12-17] MEDS: AMIODARONE HCL 200 MG TAB PO SCH ×2 (09:19→21:11)
[2018-12-17] MEDS: PANTOPRAZOLE 40 MG/10 ML VIAL IV SCH (09:19)
[2018-12-17] MEDS: LACTULOSE 20Gm/30ML SOLN PO SCH ×2 (09:20→21:10)
--- NOTE | 2018-12-17 09:40 | NUR ---
Soft Restraints: Juan, Jacinda, extremely agitated pulling at lines /tubes. All comfort measures failed including re-orientation, pain management, decreased stimuli, diversion/distraction, bathroom necessity and family involvement. Restraints placed, see Restraints assessment for further charting. Patient tolerating well. Sitter at bedside.
[2018-12-17] MEDS: LORazepam 2MG/ML-1ML VIAL IV PRN ×2 (10:37→16:00)
--- NOTE | 2018-12-17 11:40 | NUR ---
soft restraints: Jacinda Martinez extremely agitated, moaning, pulling at lines/tubes. Neurovascular assessment competed, all WNL. All comfort measures failed, including reorienting, pain management, decrease stimulation, diversion/distraction, family involvement and bathroom necessity. Restraints placed. see Restraints assessment for further charting. Patient tolerating well. Sitter at bedside. Will continue to monitor.
--- NOTE | 2018-12-17 12:00 | NUR ---
Accu check Blood sugar 125, no cover needed. Will continue to monitor. Sitter at bedside.
--- NOTE | 2018-12-17 13:00 | NUR ---
Friends at bedside. Sitter at bedside.
--- NOTE | 2018-12-17 13:40 | NUR ---
soft restraints : Lizbeth Martinez, extremely agitated, moaning, moving around, pulling at line/tubes. Neurovascular checks completed, all WNL. All comfort measures failed, including reorienting, pain management, decreased stimuli, diversion/distraction and family involvement. Restraints placed. See Restraints assessment for further charting. Patient tolerating well. Sitter at bedside. Will continue to monitor.
[2018-12-17 14:30] VITALS: BP 142/93
[2018-12-17] MEDS: SOD CHL 0.45% 1,000 ML IV SCH (15:03)
--- NOTE | 2018-12-17 15:40 | NUR ---
SOFT RESTRAINTS: Juan, Jacinda, extremely agitated, moaning and moving around, puling out lines/tubes. Neurovascular checks completed. All comfort measures failed including reorienting , pain management, diversions/distractions. family involvement and bathroom necessity. Restraints placed. See restraints assessment for further charting . Patient tolerating well. sitter at bedside.
[2018-12-17 17:00] VITALS: BP 152/98
--- NOTE | 2018-12-17 17:40 | NUR ---
soft restraints: Juan, Jacinda, extremely agitated, moaning, moving around, pulling at lines/tubes. All comfort measures failed, Including reorienting, pain management, decreased stimuli, diversion/distraction, family involvement and bathroom necessity. Restraints placed. See restraints for further charting. Patient tolerating well. Sitter at bedside. Will continue to monitor.
--- NOTE | 2018-12-17 18:00 | NUR ---
ACCU CHECK Blood sugar 117, no coverage needed. Will continue to monitor. Sitter at bedside.
--- NOTE | 2018-12-17 19:10 | NUR ---
end of shift note: Care endorsed to NOC RN. Sitter at bedside.
--- NOTE | 2018-12-17 19:40 | NUR ---
OPENING NOTE AND SOFT RESTRAINTS CHECKED RECEIVED REPORT FROM DAYSHIFT RN. ASSUMING ROLE OF CARE OF PATIENT AT THIS TIME. PATIENT SHOWING MILD DISTRESS AT THIS TIME. PATIENT IS AOX0. PATIENT IS INAUDIBLE AND NON VERBAL. ATTEMPTED TO REORIENT THE PATIENT TO THE HOSPITAL AND TO THE ENVIRONMENT. PATIENT DID NOT VERBALIZE UNDERSTANDING AND ATTEMPTED TO KICK AND GET OUT OF BED. SOFT RESTRAINTS IN PLACE. PATIENT TO BE GIVEN PAIN MEDICATION WHEN AVAILABLE. STIMULI REDUCED, DIVERSIONS ATTEMPTED, SITTER AT BEDSIDE, AND BATHROOM NECESSITIES ADDRESSED. ALL COMFORT MEASURES FAILED AT THIS TIME. SEE RESTRAINTS FOR FURTHER CHARTING. PATIENT TOLERATING RESTRAINTS WELL AT THIS TIME. WILL CONTINUE TO MONITOR.
[2018-12-17] MEDS ORDERED: PPN PER PHARMACY IV NR ×9 (20:00)
--- NOTE | 2018-12-17 21:40 | NUR ---
SOFT RESTRAINTS CHECKED PATIENT STILL EXTREMELY AGITATED, MOANING, ATTEMPTING TO MOVE AROUND, AND PULLING AT TUBES/ LINES. ATTEMPTED COMFORT MEASURES: REORIENTING PATIENT TO HOSPITAL ENVIRONMENT, PAIN MANAGEMENT, DECREASE STIMULI, UTILIZING DIVERSIONS, AND ADDRESSING BATHROOM NECESSITIES. ATTEMPTS NON SUCCESSFUL. PATIENT STILL AGITATED. RESTRAINTS PLACED. WILL CONTINUE TO MONITOR.
[2018-12-17 22:00] VITALS: BP 129/68
--- NOTE | 2018-12-17 23:40 | NUR ---
SOFT RESTRAINTS CHECK PATIENT AT THIS TIME IS STILL EXTREMELY AGITATED AND MOANING. ATTEMPTED COMFORT MEASURES INCLUDING PAIN MANAGEMENT, DECREASING STIMULI, UTILIZING DIVERSIONS, AND ADDRESSING ALL BATHROOM NECESSITIES. RESTRAINTS STILL IN PLACE. SEE RESTRAINTS FOR FURTHER CHARTING. PATIENT TOLERATING WELL. SITTER AT BEDSIDE. WILL CONTINUE TO MONITOR.
[2018-12-18] MEDS: ACCU-CHEK COMFORT CURVE STRIP VI SCH ×5 (00:13→23:57)
[2018-12-18] MEDS: SOD CHL 0.45% 1,000 ML IV SCH ×2 (01:05→14:46)
--- NOTE | 2018-12-18 01:40 | NUR ---
SOFT RESTRAINTS CHECK PATIENT STILL AGITATED AT THIS TIME. PATIENT CONTINUES TO MOAN BUT NO WORDS OR VERBAL COMMUNICATION NOTED. ATTEMPTED COMFORT MEASURES INCLUDING PAIN MANAGEMENT, DECREASING, STIMULI, UTILIZING DIVERSIONS, AND ADDRESSING ALL BATHROOM NECESSITIES. RESTRAINTS STILL IN PLACE. SEE RESTRAINTS DOCUMENTATION FOR FURTHER CHARTING INFORMATION. PATIENT TOLERATING WELL. SITTER AT BEDSIDE. WILL CONTINUE TO MONITOR.
[2018-12-18] MEDS: MORPHINE SULFATE 4 MG/ML SYR/VIAL IV PRN ×4 (01:47→20:14)
--- NOTE | 2018-12-18 03:40 | NUR ---
SOFT RESTRAINTS CHECK PATIENT STILL AGITATED AND MOANING. NEUROVASCULAR CHECKS PERFORMED. ATTEMPTED COMFORT MEASURES INCLUDING REORIENTING PATIENT, PAIN MANAGEMENT, UTILIZING DIVERSIONS, AND ADDRESSING BATHROOM NECESSITIES. RESTRAINTS STILL IN PLACE. SEE RESTRAINTS ASSESSMENT FOR FURTHER CHARTING. SITTER AT BEDSIDE. PATIENT TOLERATING WELL. WILL CONTINUE TO MONITOR.
[2018-12-18 05:00] VITALS: BP 140/92
--- NOTE | 2018-12-18 05:40 | NUR ---
SOFT RESTRAINTS CHECK PATIENT STILL AGITATED AND MOANING. NEUROVASCULAR CHECKS PERFORMED. ATTEMPTED COMFORT MEASURES INCLUDING REORIENTING PATIENT, PAIN MANAGEMENT, UTILIZING DIVERSIONS, AND ADDRESSING BATHROOM NECESSITIES. RESTRAINTS STILL IN PLACE. SEE RESTRAINT ASSESSMENT FOR FURTHER CHARTING. SITTER AT BEDSIDE. PATIENT TOLERATING WELL. WILL CONTINUE TO MONITOR.
[2018-12-18] MEDS: InsuLIN REG 1unit/0.01ml Soln (100units/ml) SC SCH ×5 (06:00→23:57)
--- NOTE | 2018-12-18 06:37 | NUR ---
DRESSING CHANGED WHILE CHANGING PATIENT, FOUND DRESSING ON NEPHROSTOMY TUBE WAS UNDONE. TUBE WAS REDRESSED AND REINFORCED. NEPHROSTOMY TUBE STILL DRAINING. WILL CONTINUE TO MONITOR AND ENDORSE TO DAYSHIFT RN.
--- NOTE | 2018-12-18 07:03 | NUR ---
PATIENT'S TEMP OF 100.7. COOLING MEASURES INITIATED. PAGE SENT TO HOSPITALIST. AWAITING CALL BACK.
[2018-12-18] MEDS ORDERED: ACETAMINOPHEN 500 MG TAB PO PRN (07:15)
--- NOTE | 2018-12-18 07:20 | NUR ---
Opening Shift Note Assumed care of patient, awake and unable to comprehend, patient very agitated. No S/S of distress/SOB . Instructed on POC will continue to monitor for changes Q1hr and PRN. Bed locked in lowest position with two side rails up and call light in reach. Sitter at bedside patient in four point restraints. See assessments in documentation.
--- NOTE | 2018-12-18 07:40 | NUR ---
SOFT RESTRAINTS: PATIENT TRU LIDIA EXTREMELY AGITATED THIS MORNING, ATTEMPTING TO PULL AT LINES AND TUBES EVEN THOUGH PATIENT IS RESTRAINED. ALL COMFORT MEASURES FAILED AT THIS TIME INCLUDING REORIENTATION, PAIN MANAGEMENT, DECREASED STIMULI, DIVERSION/DISTRACTION, SITTER AT BEDSIDE AND CLOSE TO NURSING STATION. SOFT RESTRAINTS PLACED, SEE RESTRAINT CHARTING FOR FURTHER ASSESSMENT. PATIENT TOLERATING WELL SITTER STILL AST BEDSIDE FOR PATIENT SAFETY.
--- NOTE | 2018-12-18 07:41 | NUR ---
CLOSING NOTE PASSED OFF REPORT TO DAYSHIFT RN. PATIENT STILL IN RESTRAINT AND AGITATED BUT OTHERWISE STABLE. RECEIVED ACETAMINOPHEN ORDERS FROM HOSPITALIST FOR TEMP. ENDORSED TO DAYSNARAYANFT.
[2018-12-18 08:00] VITALS: BP 131/92
--- NOTE | 2018-12-18 08:20 | NUR ---
DR KASPER ROUNDING . SOFT RESTRAINT REINSTATED AND SIGNED BY DR KASPER.
[2018-12-18] MEDS: LACTULOSE 20Gm/30ML SOLN PO SCH ×2 (09:12→21:44)
[2018-12-18] MEDS: PANTOPRAZOLE 40 MG/10 ML VIAL IV SCH (09:13)
[2018-12-18] MEDS: AMIODARONE HCL 200 MG TAB PO SCH ×2 (09:13→21:44)
--- NOTE | 2018-12-18 09:40 | NUR ---
SOFT RESTRAINTS: PATIENT TRU LIDIA EXTREMELY AGITATED, ATTEMPTING TO PULL AT LINES AND TUBES EVEN THOUGH PATIENT IS RESTRAINED. ALL COMFORT MEASURES FAILED AT THIS TIME INCLUDING REORIENTATION, PAIN MANAGEMENT, DECREASED STIMULI, DIVERSION/DISTRACTION, SITTER AT BEDSIDE AND CLOSE TO NURSING STATION. SOFT RESTRAINTS PLACED, SEE RESTRAINT CHARTING FOR FURTHER ASSESSMENT. PATIENT TOLERATING WELL SITTER STILL AST BEDSIDE FOR PATIENT SAFETY.
[2018-12-18 10:55] LABS: Albumin 2.4 g/dL (3.4-5.0); Calcium 8.1 mg/dL (8.5-10.1); Magnesium 2.2 mg/dL (1.6-2.6)
[2018-12-18 10:58] LABS: BUN/Creatinine Ratio 16.3; Bilirubin, Total 7.9 mg/dL (0.2-1.0); Phosphorus 2.9 mg/dL (2.5-4.90)
[2018-12-18 11:05] LABS: Potassium 5.9 mmol/L (3.5-5.1)
--- NOTE | 2018-12-18 11:10 | NUR ---
PAGED DR JONES FOR PATIENTS CRITICAL POTASSIUM OF 5.9. WILL AWAIT RETURN PHONE CALL.
--- NOTE | 2018-12-18 11:31 | NUR ---
HOSPICE AND FAMILY AT BEDSIDE
--- NOTE | 2018-12-18 11:36 | NUR ---
SOFT RESTRAINTS: PATIENT TRU LIDIA EXTREMELY AGITATED, FAMILY AT BEDSIDE ATTEMPTING TO CALM PATIENT, ALL COMFORT MEASURES FAILED AT THIS TIME INCLUDING REORIENTATION, PAIN MANAGEMENT, DECREASED STIMULI, DIVERSION/DISTRACTION, SITTER AT BEDSIDE AND CLOSE TO NURSING STATION. SOFT RESTRAINTS PLACED, SEE RESTRAINT CHARTING FOR FURTHER ASSESSMENT. PATIENT TOLERATING WELL SITTER STILL AST BEDSIDE FOR PATIENT SAFETY. ALL RESTRAINTS CHECKED WELL SKIN INTEGRITY.
--- NOTE | 2018-12-18 12:00 | NUR ---
PER PHARMACY HOLD PPN UNTIL PATIENT HAS NEW LABS AND THEY CALL BACK FOR CONFIRMATION ON WHEN TO START. DR JONES NOTIFIED OF PATIENTS INCREASED LEVEL OF POTASSIUM OF 5.9 AND PHARMACY NOTIFIED OF PATIENT NEW IV ON LEFT HAND 22G. PATIENT NOW RECEIVING THE FLUIDS THAT ARE ORDERED.
--- NOTE | 2018-12-18 12:09 | NUR ---
SPOKE TO DR OJNES REGARDING PATIENTS INCREASED POTASSIUM LEVEL 5.9. PER DR JONES REPEAT LABS IN THE MORNING.
--- NOTE | 2018-12-18 13:40 | NUR ---
SOFT RESTRAINTS: PATIENT TRU LIDIA EXTREMELY AGITATED, ATTEMPTING TO PULL ON LINES AND GET UP OFF BED, UNCOOPERATIVE AT THIS TIME. ALL COMFORT MEASURES FAILED AT THIS TIME INCLUDING REORIENTATION, PAIN MANAGEMENT, DECREASED STIMULI, DIVERSION/DISTRACTION, SITTER AT BEDSIDE AND CLOSE TO NURSING STATION. SOFT RESTRAINTS PLACED, SEE RESTRAINT CHARTING FOR FURTHER ASSESSMENT. PATIENT TOLERATING WELL SITTER STILL AST BEDSIDE FOR PATIENT SAFETY. ALL RESTRAINTS CHECKED WELL SKIN INTEGRITY.
--- NOTE | 2018-12-18 14:27 | NUR ---
Nutrition Follow-up Notes Wt.: 72.8 kg based on bed scale as of yesterday. Noted 5.7 kg weight loss in last 3 days likely d/t ? fluid loss aeb negative I & Os for past few days. Pt's on oxygen via nasal cannula, bilateral mittens in place, confused, no immediate family member at bedside except for sitter during rounds this morning. Pt's currently NPO with TPN @ 63 ml/hr providing 856 kcal, 576 NPCs, 70 gms pro and 125 Fat. Pt with inadequate PN support d/t low initiation rate delivery of concentrated formula aeb current PN infusion meets 48% to 59% of est caloric needs however 75% to 97% of est protein needs. Noted pt's to receive tonight another TPN at same rate and nutrient concentration. Est. Needs: 1450 kcal to 1800 kcal (20-25 kcal/kgBW), 72-93 gms pro (1.0-1.3 gms/kgBW d/t severe hypoalbuminemia). Will continue to monitor pertinent labs and reassess nutrient needs prn. Labs: No new labs since 12/18/18 Gluc 146 H, Na 149 H, Cl 112 H, BUN 34 H, Cr 2.09 H, Ca 8.1 L, Tot robbie 7.9 H, Alb 2 .4 L, AST/ALT 202/249 H, ALP 141 H; Prealb <3.0 L, Trig 158 H Skin: Santana scale 13, mod risk, pt's right lateral ankle pressure ulcers, left lateral flank rash per youth minister. Pls refer to rn field's notes 12/12/18 for further details re: tx plans. GI: Pt had 3x BM 12/16/18 per youth minister. PES: Altered nutrition related lab values r/t current/chronic medical condition aeb hyperglycemia, hypocapnia,hyperchloremia, elev. BUN, LFTs, hyperbilirubinemia, hypocalcemia and mod hypoalbuminemia Increased nutrient needs r.t chronic current medical condition aeb ALOC. mod hypoalbuminemia, Acute abdominal pain,Elevated liver enzymes,Clear Liquid diet Will continue to monitor NPO status, skin status, PN tolerance, pertinent labs and weight trend. F/u in 2 to 3 days. Rec.: 1.) If still NPO with PN support, consider gradual increase on calories and protein to meet at least 75% of est nutrient needs. 2.) Advance gradually oral diet (Soft Low Chol, Low Fat diet-per ST's diet texture recommendation) when medically appropriate. 3.) Refer to RD for further nutrition educ. and weight monitoring upon discharge. 4.) Continue current plan of care.
--- NOTE | 2018-12-18 15:19 | NUR ---
WAS ABLE TO OBTAIN ANOTHER IV ACCESS 22G ON LEFT HAND USING CLEAN TECHNIQUE. PATIENT TOLERATED WELL, IV FLUSHES WELL AND FLUIDS RESTARTED ORDERED.
--- NOTE | 2018-12-18 16:49 | NUR ---
re-assessment Naun has met with Gabby from [facility] at bedside. Naun is patients correction sig other of 18 years. Naun has agreed to hospice. Waiting on DME and discharge now. Addendum: 12/18/18 at 1653 by Macy HOOVER Amended: Links added.
--- NOTE | 2018-12-18 18:47 | NUR ---
INSULIN HELD FOR 1200 AND 1800 DOSE PATIENT IS NOT EATING .
--- NOTE | 2018-12-18 19:10 | NUR ---
Opening Shift Note Bed side report with day RN Yanet. Assumed care of patient, awake and unable to comprehend, patient very agitated. No S/S of distress/SOB . Instructed on POC will continue to monitor for changes Q1hr and PRN. Bed locked in lowest position with two side rails up and call light in reach. Sitter at bedside patient in four point restraints. See assessments in documentation.
[2018-12-18 19:31] VITALS: BP 134/77
--- NOTE | 2018-12-18 19:31 | NUR ---
SOFT RESTRAINTS: PATIENT TRU LIDIA EXTREMELY AGITATED, RESTLESS, ATTEMPTING TO PULL AT LINES AND TUBES EVEN THOUGH PATIENT IS RESTRAINED. ALL COMFORT MEASURES FAILED AT THIS TIME INCLUDING REORIENTATION, PAIN MANAGEMENT, DECREASED STIMULI, DIVERSION/DISTRACTION, SITTER AT BEDSIDE AND CLOSE TO NURSING STATION. SOFT RESTRAINTS PLACED, SEE RESTRAINT CHARTING FOR FURTHER ASSESSMENT. PATIENT TOLERATING WELL SITTER STILL AT BEDSIDE FOR PATIENT SAFETY. WILL CONTINUE TO MONITOR PATIENT
[2018-12-18] MEDS ORDERED: SODIUM PHOSPHATES IV NR ×8 (20:00)
[2018-12-18] MEDS ORDERED: [UNRECOGNIZED DRUG - OTHER] IV NR ×8 (20:00)
[2018-12-18] MEDS ORDERED: FAT EMULSION IV NR ×8 (20:00)
[2018-12-18] MEDS ORDERED: CALCIUM GLUC IV NR ×8 (20:00)
--- NOTE | 2018-12-18 21:29 | NUR ---
SOFT RESTRAINTS: PATIENT TRU LIDIA EXTREMELY AGITATED, RESTLESS, ATTEMPTING TO PULL AT LINES AND TUBES EVEN THOUGH PATIENT IS RESTRAINED. ALL COMFORT MEASURES FAILED AT THIS TIME INCLUDING REORIENTATION, PAIN MANAGEMENT, DECREASED STIMULI, DIVERSION/DISTRACTION, SITTER AT BEDSIDE AND CLOSE TO NURSING STATION. FALL PRECAUTIONS IN PLACE. SAFETY PRECAUTIONS IN PLACE. SOFT RESTRAINTS PLACED, SEE RESTRAINT CHARTING FOR FURTHER ASSESSMENT. PATIENT TOLERATING WELL SITTER STILL AT BEDSIDE FOR PATIENT SAFETY. WILL CONTINUE TO MONITOR PATIENT
--- NOTE | 2018-12-18 21:31 | NUR ---
SOFT RESTRAINTS: PATIENT TRU LIDIA EXTREMELY AGITATED, RESTLESS, ATTEMPTING TO PULL AT LINES AND TUBES EVEN THOUGH PATIENT IS RESTRAINED. ALL COMFORT MEASURES FAILED AT THIS TIME INCLUDING ALTERNATIVE METHODS SUCH REORIENTATION, PAIN MANAGEMENT, DECREASED STIMULI, DIVERSION/DISTRACTION, SITTER AT BEDSIDE AND CLOSE TO NURSING STATION. FALL PRECAUTIONS IN PLACE. SAFETY PRECAUTIONS IN PLACE. SOFT RESTRAINTS PLACED, SEE RESTRAINT CHARTING FOR FURTHER ASSESSMENT. CHECKED CIRCULATION < 3 SEC, NO REDNESS NOTED, ROM, PATIENT TOLERATING WELL SITTER STILL AT BEDSIDE FOR PATIENT SAFETY. WILL CONTINUE TO MONITOR PATIENT
--- NOTE | 2018-12-18 21:40 | NUR ---
NG PLACEMENT Check Placement of NG Auscultation heard, no residual, Verified with 2nd nurse RN Deanna. will continue to monitor pt.
[2018-12-18 22:00] VITALS: BP 134/77
[2018-12-19] MEDS: SOD CHL 0.45% 1,000 ML IV SCH ×2 (00:19→19:06)
[2018-12-19] MEDS: MORPHINE SULFATE 4 MG/ML SYR/VIAL IV PRN ×3 (04:01→22:51)
[2018-12-19 05:00] VITALS: BP 124/101
[2018-12-19] MEDS ORDERED: VANCOMYCIN PER PHARMACY 0 MG IV SCH ×2 (05:30→09:00)
--- NOTE | 2018-12-19 05:40 | NUR ---
PNT Drainage dark Brown drainage 5 cc output. will continue to monitor.
[2018-12-19] MEDS ORDERED: VANCOMYCIN 1GM/250ML 250 ML IV ONE (05:45)
[2018-12-19] MEDS: ACCU-CHEK COMFORT CURVE STRIP VI SCH ×3 (05:57→18:30)
[2018-12-19] MEDS: InsuLIN REG 1unit/0.01ml Soln (100units/ml) SC SCH ×3 (06:00→18:30)
--- NOTE | 2018-12-19 07:30 | NUR ---
Morning note patient in bed with agitated behavior noted. Patient is attempting to pull at lines. Patient does not follow commands and does not respond verbally to questions. Patient is in 4-point soft restraints at this time. Order in place. No redness and/or skin breakdown noted under the BUE and/or BLE soft restraints. CMS intact and WNL. Staff has attempted less restrictive measures, including to but not limited to re-orientation, reduction of external stimuli, hiding of tubes and lines, comfort needs met, and/or evaluation of medication regimen. Bed in low locked position with x3 side rails up. Sitter at bedside for safety. Will continue to monitor q1hr & PRN.
--- NOTE | 2018-12-19 08:45 | NUR ---
Soft Restraints: Jacinda Martinez, continues to be agitated and attempting to pull at lines /tubes. All comfort measures failed including re-orientation, pain management, decreased stimuli, diversion/distraction and family/significant other presence. Restraint order renewed, see Restraints assessment for further charting. Patient tolerating well. No skin breakdown or redness noted under the soft restraints on BUE and BLE. Sitter at bedside for safety. Will continue to monitor q1hr & PRN.
--- NOTE | 2018-12-19 08:56 | NUR ---
RE: Blood draw Called lab to clarify if ordered blood draw was taken yet due to pending PPN orders. Jacob labor mediator, will contact to horse breaker to confirm that the lab draw was completed.
[2018-12-19 09:00] VITALS: BP 136/82
--- NOTE | 2018-12-19 09:15 | NUR ---
IV removed IV removed from the RAC. Area is hot, red with purulent drainage noted under dressing. IV removed with clean technique, catheter intact. Area cleansed with wound cleanser. Dressing & ice pack applied. Will notify
[2018-12-19] MEDS: PANTOPRAZOLE 40 MG/10 ML VIAL IV SCH (09:40)
[2018-12-19] MEDS: LACTULOSE 20Gm/30ML SOLN PO SCH ×2 (09:40→22:44)
[2018-12-19] MEDS: AMIODARONE HCL 200 MG TAB PO SCH ×2 (09:40→22:44)
--- NOTE | 2018-12-19 09:45 | NUR ---
Soft Restraints: Jacinda Martinez, continues to be agitated and attempting to pull at lines /tubes. All comfort measures failed including re-orientation, pain management, decreased stimuli, diversion/distraction and family/significant other presence. See Restraints assessment for further charting. Patient tolerating well. No skin breakdown or redness noted under the soft restraints on BUE and BLE. Sitter at bedside for safety. Will continue to monitor q1hr & PRN. Patient repositioned for comfort. Provided oral hygiene.
--- NOTE | 2018-12-19 10:22 | NUR ---
Notified MD - RAC peg Notified Dr. Alfred of the RAC being hot, red with purulent drainage. Verbal orders received and read back to verify. RN to place order per MD request.
--- NOTE | 2018-12-19 10:45 | NUR ---
Moist heat applied to the LAC per MD's order.
[2018-12-19 11:06] LABS: Albumin 2.2 g/dL (3.4-5.0); Calcium 7.8 mg/dL (8.5-10.1); Potassium 4.9 mmol/L (3.5-5.1)
[2018-12-19 11:12] LABS: BUN/Creatinine Ratio 20.6; Bilirubin, Total 8.2 mg/dL (0.2-1.0); Magnesium 2.4 mg/dL (1.6-2.6); Phosphorus 2.9 mg/dL (2.5-4.90); Total Protein 7.2 g/dL (6.4-8.2)
--- NOTE | 2018-12-19 12:00 | NUR ---
Patient's boyfriend was at bedside- pocket book Patient's boyfriend was at bedside. The boyfriend removed the patient's pocket book from the patient's purse to obtain the patient's children's phone numbers. The boyfriend left bedside with the pocket book to call the patient's children. He is to return to bedside.
--- NOTE | 2018-12-19 12:00 | NUR ---
Soft Restraints continued: Jacinda Martinez, continues to be agitated and attempting to pull at lines /tubes. All comfort measures failed including but not limited to re-orientation, pain management, decreased stimuli, diversion/distraction, hiding tubes and/or lines and significant other presence at bedside. See Restraints assessment for further charting. Patient tolerating well. No skin breakdown or redness noted under the soft restraints on BUE and BLE. Sitter at bedside for safety. Will continue to monitor q1hr & PRN. Passive ROM exercises performed on all extremities. Patient repositioned.
--- NOTE | 2018-12-19 12:08 | NUR ---
RLE soft restraint released at this time Will continue to monitor patient's behavior to ensure patient and staff safety.
--- NOTE | 2018-12-19 12:15 | NUR ---
Wound culture collected and sent to the lab per MD's order.
[2018-12-19] MEDS ORDERED: traMADol HCL 50 MG TAB PO PRN (12:30)
--- NOTE | 2018-12-19 12:30 | NUR ---
PICC line orders received by Dr. Alfred. Verbal orders received and read back to verify. This RN will place order per MD's request. Consent signed by the MD at this time and placed in the chart.
[2018-12-19 13:00] VITALS: BP 128/90
--- NOTE | 2018-12-19 13:05 | NUR ---
Cooling measures applied. Elevated temperature. Dr. Alfred aware.
[2018-12-19] MEDS ORDERED: ADENOSINE 6 MG/2 ML INJ IV ONE ×2 (13:15)
--- NOTE | 2018-12-19 13:15 | NUR ---
RE: elevated HR; EKG performed Telemonitor tech notified RN that the patient's HR was in the 160's BPM. Patient moaning and showing aggressive movements with the BUE that are restrained. Patient bending the LLE that is restrained. Dr. Alfred was at bedside and assessed the patient. Notified MD that very little movement is seen from the RLE. MD verbalized understanding. STAT EKG performed per MD's orders. Dr. Alfred visualized the EKG stripe. Patient HR noted to be 115BPM on the EKG.
--- NOTE | 2018-12-19 13:15 | NUR ---
Called PICC line RN Spoke with LIT Sigala, to notify of the PICC line order. Zakiya verbalized understanding.
--- NOTE | 2018-12-19 13:22 | NUR ---
Visitors at bedside 2 visitors at bedside report being the patient's friend.
--- NOTE | 2018-12-19 13:28 | NUR ---
Visitors at bedside left Visitors requesting information on the patient. Visitors do not have a password and stated they are the patient's "friend". Patient does not say any words at this time. RN cannot obtain consent from the patient to update visitors at bedside. The 2 visitors left bedside.
--- NOTE | 2018-12-19 13:50 | NUR ---
Moist heat applied to the RAC per MD's order.
--- NOTE | 2018-12-19 14:00 | NUR ---
Soft Restraints continued: Jacinda Martinez, continues to be agitated and attempting to pull at lines /tubes. All comfort measures failed including but not limited to re-orientation, pain management, decreased stimuli, diversion/distraction, hiding tubes and/or lines and significant other presence at bedside. See Restraints assessment for further charting. Patient tolerating well. No skin breakdown or redness noted under the soft restraints on BUE and LLE. RLE remains unrestrained at this time. Sitter at bedside for safety. Will continue to monitor q1hr & PRN.
--- NOTE | 2018-12-19 14:36 | NUR ---
PICC RN at bedside
--- NOTE | 2018-12-19 16:00 | NUR ---
Soft Restraints continued: Jacinda Martinez, continues to be agitated and attempting to pull at lines /tubes. All comfort measures failed including but not limited to re-orientation, pain management, hiding tubes and/or lines. See Restraints assessment for further charting. Patient tolerating well. No skin breakdown or redness noted under the soft restraints on BUE and LLE. RLE remains unrestrained at this time. Sitter at bedside for safety. Will continue to monitor q1hr & PRN. PICC line RN at bedside at this time performing PICC line insertion. Patient is in supine position with 3 staff members at bedside. Patient continues to not follow commands and thrashing arms when restraints are released. CMS are WNL and intact.
[2018-12-19] MEDS ORDERED: LIDOCAINE 1% (LOCAL ANESTH.) PF 5ml SDV ID ONE (16:15)
--- NOTE | 2018-12-19 16:35 | NUR ---
Portable X-ray at bedside.
--- NOTE | 2018-12-19 16:35 | NUR ---
PICC line placement Patient/Patient significant other educated on need for PICC line placement. All risks and benefits explained and all questions and concerns addressed prior to procedure. Noted past medical history and allergies with no contraindications. INR and Plt counts within acceptable range. 5 fr PICC line inserted via BASILIC vein using [employer]'s [employer] US and Tip Location System. Sterile technique with maximum barrier precautions utilized. Blood return obtained from each of 2 lumens and each flushed easily with NS using proper technique. PICC secured with Stat-lock; biodisc and occlusive dressing applied. Stat portable chest x-ray obtained for PICC tip placement. *Baseline Arm Circumference 28CM, INTERNAL LENGHT 44CM, EXTERNAL LENGHT 0CM. PICC lot # [id number]. Note: KEPT COILING UPON INSERTION, EVENTUALLY WAS ABLE TO ADVANCE.
--- NOTE | 2018-12-19 16:40 | NUR ---
LLE soft restraint removed at this time. Will continue to reassess and attempt to remove BUE soft restraints. Sitter remains at bedside for safety.
[2018-12-19 17:00] VITALS: BP 129/98
--- NOTE | 2018-12-19 17:03 | NUR ---
Patient's son called - no password Patient's son, Janak, called on patient's hospital phone. Janak does not have a password. Janak stated "Naun, her boyfriend, called all of us kids today and told us that she is in the hospital but he didn't give us a password. I've tried calling him but he's not answering. I live out of the area and I just want to know if my mom is okay." This RN informed Janak that a password is on the patient's account and patient information cannot be released without a password. Janak verbalized understanding. Janak requested this RN to call Naun to notify him that family is attempting to contact him. This RN called Naun at [phone]. No answer. Voicemail left. Patient is unable to give verbal consent for this RN to speak with Janak at this time. Janak's phone number is [phone].
--- NOTE | 2018-12-19 17:03 | NUR ---
OK to use PICC line Xray completed. OK to use PICC line.
--- NOTE | 2018-12-19 17:42 | NUR ---
CLEANED AND REPOSITIONED PT WITH LETICIA WONG. BARRIER CREAM APPLIED TO BOTTOM. TURNED ON LEFT SIDE.
--- NOTE | 2018-12-19 18:00 | NUR ---
Soft Restraints continued: RUE restraint removed Jacinda Martinez, continues to be agitated and attempting to pull at lines /tubes. Patient continues to thrash the LUE and attempting to get up from the bed. Patient will moan and scream at times. All comfort measures failed including but not limited to re-orientation, pain management, reduction of external stimuli, comfort needs met, and hiding tubes and/or lines. See Restraints assessment for further charting. Patient tolerating well. No skin breakdown or redness noted under the soft restraint on LUE. BLE remains unrestrained at this time. Patient is bending the LLE. Patient has not attempted to kick staff at this time. Patient is minimally moving the RLE. Dr. Alfred aware. Patient is minimally moving the RUE. Dr. Alfred aware. Will continue to monitor patient's behavior and actions to monitor patient and staff safety. Passive ROM performed on all extremities. Patient tolerated well. No skin breakdown noted at this time. No redness noted at sights of soft-restraints. Circulation WNL. Sitter at bedside for safety. Will continue to monitor q1hr & PRN.
--- NOTE | 2018-12-19 18:27 | NUR ---
WOUND CARE NOTE: Weekly reevaluation by wound care team. Wound care team following patient due to low Santana score. [place] score is 15. Patient remains with sitter at bedside and soft restraints. Patient continues to move legs frequently in bed. Dressings to bilateral ankles C/D/I. RECOMMENDATIONS: Nursing to continue with previous wound/skin care orders; wound care team to continue to follow while Santana <18.
--- NOTE | 2018-12-19 18:30 | NUR ---
Soft restraint re-applied to the RUE patient attempted to grab NG tube despite the tube being hidden and patient being re-oriented. Soft restraint re-applied per MD's orders. Sitter at bedside.
--- NOTE | 2018-12-19 19:27 | NUR ---
Care endorsed to LIT Marie Patient is in bed resting at this time with eyes closed. Patient does not track objects with her eyes. Patient does not verbally respond to questions. Patient does not follow commands. Cooling measures in place. Dr. Alfred aware of elevated temperature and heart rate. Patient is in BUE soft restraints at this time. Re-orientation, reduction of external stimuli, hiding of tubes or lines, and comfort needs met have not worked. Patient continues to pull at lines and tubes, thrashing with bilateral arms and attempts to get up from the bed. Sitter is at bedside for safety. PICC line in place to the LUE. IV to the LHA is clean, dry and intact with no phlebitis or infiltration noted at this time. Patient has been repositioned throughout the shift. NG tube in place and patent.
--- NOTE | 2018-12-19 19:30 | NUR ---
RECEIVED PATIENT LYING IN BED AWAKE BUT NO VERBAL RESPONSE. WITH SITTER AT BEDSIDE. NO S/S OF RESPIRATORY DISTRESS. WITH SOFT RESTRAINTS ON BILATERAL UPPER EXTREMITIES ONLY, NEGATIVE FOR SKIN BREAKDOWN. BED IS LOCKED AND IN LOWEST LEVEL, SIDE RAILS UP X2, BED ALARM ON. WILL CONTINUE TO MONITOR.
[2018-12-19] MEDS: PPN PER PHARMACY IV NR ×8 (19:59)
--- NOTE | 2018-12-19 20:00 | NUR ---
Soft Restraints continued: Jacinda Martinez, continues to be agitated and attempting to pull at lines /tubes. All comfort measures failed including but not limited to re-orientation, pain management, hiding tubes and/or lines. See Restraints assessment for further charting. Patient tolerating well. No skin breakdown or redness noted under the soft restraints on BILATERAL UPPER EXT. BILATERAL LOWER EXT remains unrestrained at this time. Sitter at bedside for safety. Will continue to monitor q1hr & PRN.
[2018-12-19 22:00] VITALS: BP 132/82
[2018-12-19] MEDS: SODIUM CHLOR 0.9% PF (SALINE LOCK) 10ML VIAL/SYR IV SCH (22:44)
[2018-12-20] MEDS: ACCU-CHEK COMFORT CURVE STRIP VI SCH ×5 (00:12→23:39)
[2018-12-20 05:00] VITALS: BP 133/100
[2018-12-20 05:32] LABS: Potassium 5.3 mmol/L (3.5-5.1)
[2018-12-20 05:33] LABS: Magnesium 2.5 mg/dL (1.6-2.6); Phosphorus 4.4 mg/dL (2.5-4.90)
[2018-12-20 05:38] LABS: BUN/Creatinine Ratio 21.5; Bilirubin, Total 7.8 mg/dL (0.2-1.0); Calcium 7.4 mg/dL (8.5-10.1); Total Protein 6.9 g/dL (6.4-8.2)
[2018-12-20] MEDS: InsuLIN REG 1unit/0.01ml Soln (100units/ml) SC SCH ×5 (05:47→23:39)
[2018-12-20] MEDS: SOD CHL 0.45% 1,000 ML IV SCH ×2 (06:25→12:27)
[2018-12-20] MEDS ORDERED: VANCOMYCIN 1GM/250ML 250 ML IV ONE ×2 (07:00→08:00)
--- NOTE | 2018-12-20 07:41 | NUR ---
CARE ENDORSED TO AM SHIFT RN
--- NOTE | 2018-12-20 08:00 | NUR ---
Soft Restraints continued: Jacinda Martinez continues to be agitated. See Restraints assessment for further charting. Patient has tolerated the restraints well. No skin breakdown or redness noted under the soft restraints on bilateral lower extremities. Bilateral lower extremities remains unrestrained at this time. Sitter at bedside for safety. Will continue to monitor q1hr & PRN.
--- NOTE | 2018-12-20 08:01 | NUR ---
Opening Shift Note Assumed care of patient from lieutenant shift supervisor nurse. The patient is laying down on the bed but is not responsive to name. The patient is in no distress or pain. The patient has a sitter at bedside. The patient is also in a 2 point restraint. Will continue to monitor for changes Q1hr and PRN.
[2018-12-20 09:00] VITALS: BP 108/58
[2018-12-20] MEDS: PANTOPRAZOLE 40 MG/10 ML VIAL IV SCH (10:22)
[2018-12-20] MEDS: SODIUM CHLOR 0.9% PF (SALINE LOCK) 10ML VIAL/SYR IV SCH ×2 (10:36→22:06)
[2018-12-20] MEDS: LACTULOSE 20Gm/30ML SOLN PO SCH ×2 (10:57→21:56)
[2018-12-20] MEDS: AMIODARONE HCL 200 MG TAB PO SCH ×2 (11:07→21:56)
--- NOTE | 2018-12-20 12:00 | NUR ---
SISTER JOVAN AT BEDSIDE. PHONE NUMBER . SON'S NAME (TRINA)
--- NOTE | 2018-12-20 12:07 | NUR ---
Nutrition Follow-up Notes Wt.: 72.8 kg Pt's on oxygen via nasal cannula, bilateral mittens in place, confused, no immediate family member at bedside except for sitter during rounds this morning. Pt's currently NPO with TPN @ 67 ml/hr providing 1004 kcal, 744 NPCs, 65 gms pro. Pt with inadequate PN support d/t low initiation rate delivery of concentrated formula aeb current PN infusion meets 55-69% of est caloric needs however 69-90% of est protein needs. Est. Needs: 1450 kcal to 1800 kcal (20-25 kcal/kgBW), 72-93 gms pro (1.0-1.3 gms/kgBW d/t severe hypoalbuminemia). Will continue to monitor pertinent labs and reassess nutrient needs prn. Labs: BUN 55 H, CREAT 2.56 H, GLU 124 H, CA 7.4 L, ALB 2.0 L, AST/ALT 151/163 H Skin: Santana scale 15 mod risk, pt's right lateral ankle pressure ulcers, left lateral flank rash per drill foreman. Pls refer to litigation partner's notes for further details re: tx plans. GI: Pt had 2 BM 12/19/18 per drill foreman. PES: Altered nutrition related lab values r/t current/chronic medical condition aeb hyperglycemia, hypocapnia,hyperchloremia, elev. BUN, LFTs, hyperbilirubinemia, hypocalcemia and mod hypoalbuminemia Increased nutrient needs r.t chronic current medical condition aeb ALOC. mod hypoalbuminemia, Acute abdominal pain,Elevated liver enzymes,Clear Liquid diet Will continue to monitor NPO status, skin status, PN tolerance, pertinent labs and weight trend. F/u in 2 to 3 days. Rec.: 1.) If still NPO with PN support, consider gradual increase on calories and protein to meet at least 75% of est nutrient needs. 2.) Advance gradually oral diet (Soft Low Chol, Low Fat diet-per ST's diet texture recommendation) when medically appropriate. 3.) Refer to RD for further nutrition educ. and weight monitoring upon discharge. 4.) Continue current plan of care.
[2018-12-20 13:00] VITALS: BP 120/80
--- NOTE | 2018-12-20 14:00 | NUR ---
Soft Restraints continued: Jacinda Martinez continues to be agitated and attempting to pull at lines /tubes. All comfort measures failed including but not limited to re-orientation, pain management, hiding tubes and/or lines. See Restraints assessment for further charting. Patient tolerating well. No skin breakdown or redness noted under the soft restraints on bilateral upper extremities, bilateral lower extremities remain unrestrained at this time. Sitter at bedside for safety. Will continue to monitor q1hr & PRN.
--- NOTE | 2018-12-20 15:30 | NUR ---
MD KASPER AT BEDSIDE. UPDATED MD ON PATIENT'S STATUS, MD IS AWARE. SPOKE WITH SISTER JOVAN AND BOYFRIEND CARMITA REGARDING PATIENT'S STATUS.
--- NOTE | 2018-12-20 16:10 | NUR ---
MD BARRIOS AT BEDSIDE. UPDATED MD ON PATIENT'S STATUS, MD IS AWARE. MD SPOKE WITH PATIENT'S SISTER AND BOYFRIEND REGARDING HER STATUS. WILL CONTINUE TO MONITOR PATIENT
[2018-12-20] MEDS: MORPHINE SULFATE 4 MG/ML SYR/VIAL IV PRN (16:48)
[2018-12-20 16:55] VITALS: BP 124/75
--- NOTE | 2018-12-20 19:13 | NUR ---
CLOSING SHIFT NOTE ENDORSED CARE TO RETIREMENT SALES CONSULTANT LIT WOLFF. PATIENT HAS NO S/S OF DISTRESS/SOB OR PAIN AT THIS TIME. FAMILY AT BEDSIDE.
--- NOTE | 2018-12-20 19:30 | NUR ---
OPENING NOTE RECEIVED REPORT FROM DAYSHIFT RN. ASSUMING ROLE OF CARE OF PATIENT AT THIS TIME. PATIENT AGGRESSIVE WHEN BEING MOVED BUT IS RELAXED WHILE FAMILY IS AT BEDSIDE. SOFT RESTRAINTS ON AT THIS TIME. NEUROVASCULAR CHECKS PERFORMED AND NO SKIN BREAKDOWN FROM RESTRAINTS NOTED. PATIENT AND FAMILY EDUCATED ON PLAN OF CARE FOR THE NIGHT. FAMILY VERBALIZED UNDERSTANDING. BED LOWERED, CALL LIGHT WITHIN REACH, AND PATIENT WILL BE ROUNDED ON EVERY HOUR AND NEEDED.
--- NOTE | 2018-12-20 19:37 | NUR ---
CALLED PHARMACY [facility] NOT [place]. CONTACTED PHARMACY. PHARMACY SAID IT HAS NOT ARRIVED YET. WILL BRING UP WHEN READY.
[2018-12-20] MEDS ORDERED: PPN PER PHARMACY IV NR ×7 (20:00)
[2018-12-20] MEDS: PPN PER PHARMACY IV NR ×8 (20:00)
--- NOTE | 2018-12-20 20:00 | NUR ---
SOFT RESTRAINTS CHECK PATIENT AT THIS TIME IS AGITATED. ATTEMPTED COMFORT MEASURES AT THIS TIME, INCLUDING PAIN MANAGEMENT, DISTRACTION, REORIENTATION, AND HIDING TUBES AND LINES. SEE RESTRAINTS CHARTING FOR FURTHER INFORMATION. BILATERAL LOWER EXTREMITIES NOT ON AT THIS TIME. UPPER RESTRAINTS ON AND SHOWING NO SKIN BREAKDOWN AT THIS TIME. SITTER AT BEDSIDE. WILL CONTINUE TO MONITOR.
--- NOTE | 2018-12-20 20:15 | NUR ---
SPOKE WITH FAMILY BROTHER AND SISTER OF PATIENT KIERA AND JOVAN AT BEDSIDE. KIERA STATED DESIRE TO TAKE PATIENT AT THIS TIME TO HOME AND HOSPICE WILL BE SET UP TOMORROW. INFORMED CHARGE NURSE AND SPOKE WITH FAMILY. PATIENT NOT MEDICALLY CLEARED BY MD AND TO LEAVE NOW WOULD BE AGAINST MEDICAL ADVICE. INFORMED FAMILY THAT MILL CONTROL OPERATOR AND HOSPICE [facility]ENT[facility] CAN BE CONTACTED IN THE MORNING TO CLARIFY DISCHARGE PLANS. FAMILY AGREED AND INFORMATION WAS TAKEN. PHONE NUMBER OF KIERA IS [phone], JOVAN (SISTER)- [phone]. NUMBER OF HUGO WITH [facility] [phone]. NUMBER MARGARITO FOR [facility] NOT AVAILABLE AT THIS TIME. FAMILY REQUESTING TO BE CALLED BY HOSPICE AND MD IN THE MORNING TO PLAN FOR DISCHARGE.
[2018-12-20 22:00] VITALS: BP 133/79
--- NOTE | 2018-12-20 22:00 | NUR ---
SOFT RESTRAINTS CHECKED PATIENT APPEARS ASLEEP AND LESS AGITATED BUT STILL ATTEMPTING TO GET OUT OF BED WHEN AWOKEN. ATTEMPTED COMFORT MEASURES INCLUDING PAIN MANAGEMENT, DISTRACTION, REORIENTATION, AND HIDING TUBES AND LINES. SEE RESTRAINTS CHECK FOR FURTHER INFORMATION. UPPER EXTREMITY RESTRAINTS STILL IN PLACE AT THIS TIME. LOWER EXTREMITIES RESTRAINTS OFF. NO SKIN BREAKDOWN NOTED AND NEUROVASCULAR CHECKS PERFORMED. SITTER AT BEDSIDE. WILL CONTINUE TO MONITOR.
--- NOTE | 2018-12-20 22:12 | NUR ---
PER EMERGENCY MAN AT BEDSIDE BROTHER LIVES IN [facility] AND PLANS TO HAVE HOSPICE IN [facility]. WILL INFORM DAYSHERBER MURRIETA.
--- NOTE | 2018-12-21 | NUR ---
SOFT RESTRAINTS CHECKED PATIENT IS ASLEEP AT THIS TIME. WHEN PATIENT IS TOUCHED, PATIENT BEGINS TO PULL AWAY. SOFT RESTRAINTS KEPT IN PLACE AT THIS TIME. ATTEMPTED COMFORT MEASURES INCLUDING PAIN MANAGEMENT, DIVERSION, HYGIENE, WELL HIDING LINES AND TUBES FROM PATIENT. NEUROVASCULAR CHECKS PERFORMED. SEE RESTRAINT CHARTING FOR MORE INFORMATION. SITTER AT BEDSIDE. WILL CONTINUE TO MONITOR.
--- NOTE | 2018-12-21 02:00 | NUR ---
SOFT RESTRAINTS CHECK PATIENT AT THIS TIME APPEARS LESS AGITATED BUT STILL RESTLESS. COMFORT MEASURES ATTEMPTED INCLUDING DIVERSION. HIDING TUBES AND LINES, PAIN MANAGEMENT, AND REORIENTATION. UPPER RESTRAINTS STILL IN PLACE. NEUROVASCULAR CHECKS COMPLETED. NO SKIN BREAKDOWNS NOTED AT THIS TIME. SEE RESTRAINTS CHARTING FOR MORE INFORMATION. SITTER AT BEDSIDE. WILL CONTINUE TO MONITOR.
--- NOTE | 2018-12-21 04:00 | NUR ---
SOFT RESTRAINTS CHECKED PATIENT IS EXTREMELY AGITATED AT THIS TIME. ATTEMPTED COMFORT MEASURES INCLUDING PAIN MANAGEMENT, DIVERSION, HIDING TUBES AND LINES, AND REORIENTATION. ATTEMPTS UNSUCCESSFUL. RESTRAINTS TO UPPER EXTREMITIES IN PLACE. SEE RESTRAINTS DOCUMENTATION FOR FURTHER INFORMATION. SITTER AT BEDSIDE. WILL CONTINUE TO MONITOR.
[2018-12-21] MEDS: MORPHINE SULFATE 4 MG/ML SYR/VIAL IV PRN ×4 (04:23→22:35)
[2018-12-21 05:01] VITALS: BP 130/68
[2018-12-21] MEDS: ACCU-CHEK COMFORT CURVE STRIP VI SCH ×4 (05:23→23:31)
[2018-12-21] MEDS: InsuLIN REG 1unit/0.01ml Soln (100units/ml) SC SCH ×4 (05:24→23:30)
[2018-12-21 06:31] LABS: Chloride 112 mmol/L (98-107); Potassium 3.2 mmol/L (3.5-5.1); Sodium 144 mmol/L (136-145)
[2018-12-21 06:41] LABS: Alanine Aminotransferase 131 U/L (13-56); Albumin 1.7 g/dL (3.4-5.0); Alkaline Phosphatase 97 U/L (45-117); Anion Gap 9 (5-15); Aspartate Aminotransferase 154 U/L (15-37); BUN/Creatinine Ratio 29.4; Bilirubin, Total 6.9 mg/dL (0.2-1.0); Blood Urea Nitrogen 52 mg/dL (7-18); Calcium 6.7 mg/dL (8.5-10.1); Carbon Dioxide 23 mmol/L (21-32); GFR African American 39 mL/min; GFR Non-African American 32 mL/min; Glucose 124 mg/dL (74-106); Magnesium 2.2 mg/dL (1.6-2.6); Phosphorus 2.2 mg/dL (2.5-4.90); Pre Albumin < 3.0 mg/dL (20.0-40.0); Total Protein 5.9 g/dL (6.4-8.2); Triglycerides 216 mg/dL (< 150)
--- NOTE | 2018-12-21 07:25 | NUR ---
Report received. Patient lying in bed. Patient has soft restraints to bilateral wrists. Patient does not make eye contact or respond to verbal stimuli. NG tube noted. PICC line intact. Whelan catheter noted. Sitter at bedside. Call light in reach. Will continue to monitor.
--- NOTE | 2018-12-21 07:30 | NUR ---
Pt. placed in soft restraints. Bilateral wrists TRULIDIA extremely agitated, pulling at lines or tubes. All comfort measures failed including reorientation, pain management, decreased stimuli, diversions/distractions, family involvement, and bathroom necessity. Patient/Family educated on need for restraints, including safety precautions. Restraints placed, see Restraint assessment for further charting. Addendum: 12/21/18 at 1329 by Harmony Mckeon RN RN Should say: Soft restraint check:
--- NOTE | 2018-12-21 08:00 | NUR ---
Soft restraints check: LIDIA OTT extremely agitated, pulling at lines or tubes. All comfort measures failed including reorientation, pain management, decreased stimuli, diversions/distractions, family involvement, and bathroom necessity. Patient/Family educated on need for restraints, including safety precautions. Restraints placed, see Restraint assessment for further charting.
[2018-12-21 09:00] VITALS: BP 143/74
--- NOTE | 2018-12-21 09:00 | NUR ---
Pt. placed in soft restraints bilateral wrists. LIDIA OTT extremely agitated, pulling at lines or tubes. All comfort measures failed including reorientation, pain management, decreased stimuli, diversions/distractions, family involvement, and bathroom necessity. Patient/Family educated on need for restraints, including safety precautions. Restraints placed, see Restraint assessment for further charting. Skin intact, patient repostioned. Sitter at bedside. Addendum: 12/21/18 at 1329 by Harmony Mckeon RN RN Should say: Soft restraint check.
[2018-12-21] MEDS: SOD CHL 0.45% 1,000 ML IV SCH ×2 (09:05→22:25)
[2018-12-21] MEDS ORDERED: VANCOMYCIN 1GM/250ML 250 ML IV ONE (10:00)
[2018-12-21] MEDS: AMIODARONE HCL 200 MG TAB PO SCH ×2 (10:03→22:15)
[2018-12-21] MEDS: PANTOPRAZOLE 40 MG/10 ML VIAL IV SCH (10:03)
[2018-12-21] MEDS: LACTULOSE 20Gm/30ML SOLN PO SCH ×2 (10:03→22:15)
[2018-12-21] MEDS: SODIUM CHLOR 0.9% PF (SALINE LOCK) 10ML VIAL/SYR IV SCH ×2 (10:07→22:15)
[2018-12-21] MEDS ORDERED: POTASSIUM PHOSPHATE 33 MEQ in D5W 5% 250 ML IV ONE (10:30)
[2018-12-21] MEDS ORDERED: POTASSIUM CHL 20MEQ/100ML 100 ML IV SCH ×2 (10:45→13:45)
--- NOTE | 2018-12-21 11:00 | NUR ---
Pt. placed in soft restraints BILATERAL WRISTS. TRUBENJILIDIA extremely agitated, pulling at lines or tubes. All comfort measures failed including reorientation, pain management, decreased stimuli, diversions/distractions, family involvement, and bathroom necessity. Patient/Family educated on need for restraints, including safety precautions. Restraints placed, see Restraint assessment for further charting. Patient is very restless, moaning, thrashing in bed. Sitter at bedside. Will continue to monitor. Addendum: 12/21/18 at 1329 by Harmony Mckeon RN RN Should say: Soft restraint check.
--- NOTE | 2018-12-21 12:00 | NUR ---
Patient thrashing around in bed, moaning. Does not respond to verbal stimuli. Sitter at bedside. Call light in reach. Will continue to monitor.
--- NOTE | 2018-12-21 12:45 | NUR ---
WOUND CARE NOTE: IN TO SEE PATIENT AT THIS TIME FOR NEW WOUND CONCERN. PATIENT HAS CURRENT ROSINA SCORE OF 15. PATIENT IS CONFUSED/ALOC. SHE HAS SITTER AT BEDSIDE, HAND RESTRAINTS IN PLACE TO AVOID PATIENT FROM PULLING OUT LINES, TUBES. PATIENT IS VERY AGITATED, SCOOTING ABOUT IN BED, TOSSING AND TURNING. SHE HAS WHAT APPEARS TO BE A FRICTION ABRASION TO THE SACRUM. SKIN IS DARK RED, WITH SKIN TAGS NOTED. SKIN DOES GUSTAVO. APPLIED ZGUARD AND OPTIFOAM GENTLE SACRAL DRESSING TO HELP AVOID FURTHER FRICTION. ADVISED BEDSIDE NURSE TO CONTINUE TO COVER UPPER MEDIAL SACRUM WITH OPTIFOAM GENTLE DRESSING PROTECTIVE. WOUND CARE TEAM WILL CONTINUE TO MONITOR. Addendum: 12/21/18 at 1822 by Vianney Hough RN Amended: Links added.
[2018-12-21 13:00] VITALS: BP 135/75
--- NOTE | 2018-12-21 13:00 | NUR ---
Soft restraints check TRU,LIDIA extremely agitated, pulling at lines or tubes. All comfort measures failed including reorientation, pain management, decreased stimuli, diversions/distractions, family involvement, and bathroom necessity. Patient/Family educated on need for restraints, including safety precautions. Restraints placed, see Restraint assessment for further charting.
[2018-12-21 13:33] LABS: INR 1.58 (0.9-1.15); Prothrombin Time 16.5 sec (9.27-12.13)
[2018-12-21] MEDS ORDERED: POTASSIUM PHOSP 22MEQ(15MMOLE) in NS 100 ML IV ONE (15:00)
--- NOTE | 2018-12-21 15:00 | NUR ---
Soft restraints check: LIDIA OTT extremely agitated, pulling at lines or tubes. All comfort measures failed including reorientation, pain management, decreased stimuli, diversions/distractions, family involvement, and bathroom necessity. Patient/Family educated on need for restraints, including safety precautions. Restraints in place, see Restraint assessment for further charting.
[2018-12-21 17:00] VITALS: BP 144/79
--- NOTE | 2018-12-21 19:00 | NUR ---
ASSUMED CARE, PT. ASLEEP, SITTER AT BESIDE, NO SOB.
[2018-12-21] MEDS ORDERED: PPN PER PHARMACY IV NR ×8 (20:00)
[2018-12-21 21:58] VITALS: BP 126/78
[2018-12-22] MEDS: SOD CHL 0.45% 1,000 ML IV SCH (01:39)
[2018-12-22] MEDS: MORPHINE SULFATE 4 MG/ML SYR/VIAL IV PRN ×5 (02:32→20:40)
[2018-12-22 05:00] VITALS: BP 114/71
[2018-12-22] MEDS: InsuLIN REG 1unit/0.01ml Soln (100units/ml) SC SCH ×3 (05:35→18:00)
[2018-12-22] MEDS: ACCU-CHEK COMFORT CURVE STRIP VI SCH ×3 (05:35→18:00)
[2018-12-22 06:23] LABS: Albumin 1.6 g/dL (3.4-5.0); Calcium 6.8 mg/dL (8.5-10.1)
[2018-12-22 06:28] LABS: BUN/Creatinine Ratio 30.2; Bilirubin, Total 6.9 mg/dL (0.2-1.0); Magnesium 1.9 mg/dL (1.6-2.6); Phosphorus 1.6 mg/dL (2.5-4.90); Total Protein 5.6 g/dL (6.4-8.2)
--- NOTE | 2018-12-22 07:15 | NUR ---
soft restraints CHECK: LIDIA OTT extremely agitated, pulling at lines or tubes. All comfort measures failed including reorientation, pain management, decreased stimuli, diversions/distractions, family involvement, and bathroom necessity. Patient/Family educated on need for restraints, including safety precautions. See Restraint assessment for further charting.
--- NOTE | 2018-12-22 07:30 | NUR ---
Report received. Patient lying in bed, soft restraints to bilateral wrists. Patient confused, agitated. NG tube noted to right nare. PICC line left upper arm. Nephrostomy tube right side. Whelan catheter in place. Sitter at bedside. Call light in reach. Will continue to monitor.
[2018-12-22 09:00] VITALS: BP 125/70
[2018-12-22] MEDS: SODIUM CHLOR 0.9% PF (SALINE LOCK) 10ML VIAL/SYR IV SCH ×2 (10:00→20:39)
[2018-12-22] MEDS: LACTULOSE 20Gm/30ML SOLN PO SCH ×2 (10:15→20:39)
[2018-12-22] MEDS: AMIODARONE HCL 200 MG TAB PO SCH ×2 (10:16→20:40)
[2018-12-22] MEDS: PANTOPRAZOLE 40 MG/10 ML VIAL IV SCH (10:16)
[2018-12-22] MEDS: VANCOMYCIN 1GM/250ML 250 ML IV SCH (10:51)
[2018-12-22] MEDS ORDERED: POTASSIUM PHOSPHATE 44 MEQ in D5W 5% 250 ML IV ONE (12:00)
[2018-12-22] MEDS ORDERED: POTASSIUM CHL 20MEQ/100ML 100 ML IV SCH (12:45)
--- NOTE | 2018-12-22 12:55 | NUR ---
Nutrition Follow-up Notes Wt.: 75.8 kg Pt's on oxygen via nasal cannula, bilateral mittens in place, confused, no immediate family member at bedside during rounds this morning. Pt's currently on clear liq diet with inadequate PO of 50% x 3 per RN doc since diet is advanced along with TPN @ 71 ml/hr providing 1064 kcal, 744 NPCs, 80 gms pro. Pt with inadequate PN support d/t low initiation rate delivery of concentrated formula aeb current PN infusion meets 59-73% of est caloric needs however 86-111% of est protein needs. Est. Needs: 1450 kcal to 1800 kcal (20-25 kcal/kgBW), 72-93 gms pro (1.0-1.3 gms/kgBW d/t severe hypoalbuminemia). Will continue to monitor pertinent labs and reassess nutrient needs prn. Labs: BUN 32 H, CREAT 1.06 H, CA 6.8 L, ALB 1.6 L, GLU 118 H, AST/ALT 192/133 H Skin: Santana scale 14 mod risk, pt's right lateral ankle pressure ulcers, left lateral flank rash per ceramic capacitor processor. Pls refer to fish pitcher's notes for further details re: tx plans. GI: Pt had 2 BM 12/21/18 per ceramic capacitor processor. PES: Altered nutrition related lab values r/t current/chronic medical condition aeb hyperglycemia, hypocapnia,hyperchloremia, elev. BUN, LFTs, hyperbilirubinemia, hypocalcemia and mod hypoalbuminemia Increased nutrient needs r.t chronic current medical condition aeb ALOC. mod hypoalbuminemia, Acute abdominal pain,Elevated liver enzymes,Clear Liquid diet Will continue to monitor PO intake, skin status, PN tolerance, pertinent labs and weight trend. F/u in 2 to 3 days. Rec.: 1.) Consider gradual increase on calories and protein to meet at least 75% of est nutrient needs if pt continues on cld with poor PO. 2.) Advance gradually oral diet (Soft Low Chol, Low Fat diet-per ST's diet texture recommendation) when medically appropriate. 3.) Refer to RD for further nutrition educ. and weight monitoring upon discharge. 4.) Continue current plan of care.
[2018-12-22 17:06] VITALS: BP 107/65
--- NOTE | 2018-12-22 19:30 | NUR ---
Opening Shift Note Assumed care of patient, awake and restless. unable to understand patient, garbled speech. Whelan and nephrostomy drainage bag secured to patient's leg and back, patient no kinks noted. IV to left hand has redness and pain a upon flushing, will discontinue IV. PPN to left upper arm PICC line at 71 mls/hr. NG tube to right nare intact. Bed locked in lowest position. soft restraints to bilateral wrists, circulation intact, no redness noted at this this time. Sitter at bedside. Will continue to monitor for changes Q1hr and PRN. Addendum: 12/23/18 at 0314 by ATA SCHOFIELD RN per NON PROFIT FINANCIAL CONTROLLER patient able to tolerate dinner, no difficulty swallowing.
[2018-12-22] MEDS ORDERED: PPN PER PHARMACY IV NR ×9 (20:00)
--- NOTE | 2018-12-22 20:00 | NUR ---
Soft restraints check: LIDIA OTT extremely agitated, pulling at lines or tubes. All comfort measures failed including reorientation, pain management, decreased stimuli, diversions/distractions, and bathroom necessity. Patient educated on need for restraints, including safety precautions. See Restraint assessment for further charting.
[2018-12-22 22:00] VITALS: BP 128/85
--- NOTE | 2018-12-22 22:00 | NUR ---
Soft Restraints continued: Jacinda Martinez, continues to be extremely agitated and attempting to pull at lines /tubes. Trying to get out of bed. All comfort measures failed including but not limited to re-orientation, pain management, hiding tubes and/or lines. See Restraints assessment for further charting. Soft restraints to JAY JAY and BLL extremities Circulation < 3 seconds on all four extremities, pulses 2+ No skin breakdown or redness at this time. Sitter at bedside for safety. Will continue PRN.
--- NOTE | 2018-12-23 | NUR ---
Soft Restraints continued: Jacinda Martinez, continues to be extremely agitated and attempting to pull at lines /tubes. Trying to get out of bed. All comfort measures failed including but not limited to re-orientation, pain management, hiding tubes and/or lines. See Restraints assessment for further charting. Soft restraints to JAY JAY and BLL extremities circulation < 3 seconds on all four extremities, pulses 2+ No skin breakdown or redness at this time. Sitter at bedside for safety. Will continue PRN.
[2018-12-23] MEDS: SOD CHL 0.45% 1,000 ML IV SCH ×2 (00:26→12:40)
[2018-12-23] MEDS: ACCU-CHEK COMFORT CURVE STRIP VI SCH ×4 (00:26→17:48)
[2018-12-23] MEDS: MORPHINE SULFATE 4 MG/ML SYR/VIAL IV PRN ×3 (00:35→14:05)
--- NOTE | 2018-12-23 01:50 | NUR ---
NGT Patient removed NGT, despite both wrist in restraints and sitter at bedside. NG tube intact.
--- NOTE | 2018-12-23 02:00 | NUR ---
Soft Restraints Jacinda Martinez, continues to be agitated and attempting to pull at lines /tubes, managed to pull out NG tube at 0150. Trying to get out of bed. All comfort measures failed including but not limited to re-orientation, pain management, hiding tubes and/or lines. See Restraints assessment for further charting. Soft restraints to JAY JAY extremities circulation < 3 seconds, pulses 2+ No skin breakdown or redness at this time. Sitter at bedside for safety. Will continue PRN.
--- NOTE | 2018-12-23 03:19 | NUR ---
[facility] called Patients rhythm changed from SR/ST to A fib with RVR VS B/P 143/87 HR108 up to 145 94% on 2L N/C 0349: EKG completed placed in chart will paged hospitalist
--- NOTE | 2018-12-23 04:00 | NUR ---
Soft Restraints Juan Jacinda, continues to be agitated and attempting to pull at lines /tubes. Trying to get out of bed. All comfort measures failed including but not limited to re-orientation, pain management, hiding tubes and/or lines. See Restraints assessment for further charting. Soft restraints to JAY JAY extremities circulation < 3 seconds, pulses 2+ No skin breakdown or redness at this time. Sitter at bedside for safety. Will continue PRN.
[2018-12-23 04:53] VITALS: BP 143/87
--- NOTE | 2018-12-23 05:05 | NUR ---
Paged Lars regarding NG tube and A fib, awaiting call back
--- NOTE | 2018-12-23 05:12 | NUR ---
Lars called back Informed that patient had taken out NG tube, NG tube was being used for medication only. Patient ate dinner last night with assistance from [employer], no difficulty swallowing. NO ORDER AT THIS TIME, Per Lars okay to keep NG tube out at this time, per patient can eat. Continue to monitor. ALSO Informed that patient had rhythm change, to A Fib patient has history of A Fib and is on Amiodarone. HR currently in the 130's Order received , read back and verified Cardizem 10mg IV once for continued high HR.
--- NOTE | 2018-12-23 05:26 | NUR ---
Patient continues to have high HR 124-135's will administer medication see eMAR
[2018-12-23 05:28] LABS: Basophils # (auto) 0 uL; Basophils % (auto) 0.1 % (0.0-2.0); Eosinophils # (auto) 0.1 uL; Eosinophils % (auto) 0.6 % (0.0-7.0); Hematocrit 35.6 % (36.0-46.0); Hemoglobin 11.4 g/dL (12.2-16.2); Lymphocytes # (auto) 1.6 uL; Lymphocytes % (auto) 9.5 % (10.0-50.0); Mean Corpuscular Hemoglobin 27.7 pg (28.0-32.0); Mean Corpuscular Volume 86.5 fL (80.0-100.0); Monocytes # (auto) 1.2 uL; Monocytes % (auto) 6.9 % (0.0-12.0); Neutrophils # (auto) 14.1 uL; Neutrophils % (auto) 82.9 % (37.0-80.0); Nucleated Red Blood Cells % 0.2 %; Platelet Count (auto) 79 10^3/uL (140-450); Red Blood Cells 4.12 10^6/uL (4.0-5.20)
[2018-12-23 05:30] LABS: Red Cell Distribution Width 20.6 % (11.8-14.3)
[2018-12-23] MEDS ORDERED: DILTIAZEM HCL 25 MG/5 ML VIAL IV ONE (05:30)
[2018-12-23] MEDS: InsuLIN REG 1unit/0.01ml Soln (100units/ml) SC SCH ×4 (05:51→17:48)
--- NOTE | 2018-12-23 06:00 | NUR ---
Soft Restraints Juan Jacinda, continues to be agitated and attempting to pull at lines /tubes, Trying to get out of bed. All comfort measures failed including but not limited to re-orientation, pain management, hiding tubes and/or lines. See Restraints assessment for further charting. Soft restraints to JAY JAY extremities circulation < 3 seconds, pulses 2+ No skin breakdown or redness at this time. Sitter at bedside for safety. Will continue PRN.
[2018-12-23 06:10] LABS: Albumin 1.6 g/dL (3.4-5.0); Calcium 7.1 mg/dL (8.5-10.1); Magnesium 1.8 mg/dL (1.6-2.6)
[2018-12-23 06:12] LABS: Bilirubin, Total 6.3 mg/dL (0.2-1.0); Phosphorus 1.9 mg/dL (2.5-4.90); Total Protein 5.8 g/dL (6.4-8.2)
[2018-12-23 06:14] LABS: Potassium 2.9 mmol/L (3.5-5.1)
--- NOTE | 2018-12-23 06:15 | NUR ---
Critical Lab potassium of 2.9
--- NOTE | 2018-12-23 06:19 | NUR ---
Carmita Sousa hospitalist for critical lab awaiting call back
--- NOTE | 2018-12-23 06:32 | NUR ---
Lars called back Informed of current critical lab of potassium 2.9 Orders received, read back and verified. Potassium rider IV 40 mEq
--- NOTE | 2018-12-23 07:08 | NUR ---
Closing notes Endorsed care to Eugene RN, patient is restless/agitated on bilateral soft wrist restraints renewal of the order due at 0845. Skin intact with good tissue perfusion. Sitter at a bedside. See restraints assessment on the chart for further documentation. Patient has critical potassium of 2.9, order for k rider 40mg, see eMAR endorsed to day shift RN.
--- NOTE | 2018-12-23 07:20 | NUR ---
GAVE PT FULL BED BATH AND LINEN CHANGE WITH ASSISTANCE FROM OTHER REVIEW CONSULTANT. BARRIER CREAM APPLIED TO BOTTOM. PATIENT VERY RESTLESS AND AGITATED TRYING TO KICK US DURING PROCESS. RN NOTIFIED.
[2018-12-23 08:00] VITALS: BP 134/77
--- NOTE | 2018-12-23 08:00 | NUR ---
Restraint note: Patient is thrashing, incomprehensible, and agitated. Bilateral upper extremities restraints. Vascular assessment on upper extremities WNL. Skin is intact under restraints. Sitter is bedside for safety. Bed is in lowest position and call light is within reach.
[2018-12-23] MEDS: POTASSIUM CHL 20MEQ/100ML 100 ML IV SCH ×2 (08:54→13:26)
[2018-12-23 09:00] VITALS: BP 137/77
--- NOTE | 2018-12-23 09:25 | NUR ---
Patient Note: Dr. Villalba bedside. Patient has no s/s of distress.
--- NOTE | 2018-12-23 09:49 | NUR ---
Opening shift note: Patient is awake, incomprehensible, thrashing around in bed. No s/s of distress. Picc line in left upper arm is patent, clean and dry. Patient has bilateral restraints on upper extremities. Vascular status checked and with normal limits. Sitter is bedside for safety. bed in lowest position and call light is within reach. Addendum: 12/23/18 at 0954 by Josie Arriaga RN note entered for 0800. time error
[2018-12-23] MEDS: SODIUM CHLOR 0.9% PF (SALINE LOCK) 10ML VIAL/SYR IV SCH (10:00)
[2018-12-23] MEDS: LACTULOSE 20Gm/30ML SOLN PO SCH (10:00)
--- NOTE | 2018-12-23 10:00 | NUR ---
RESTRAINTS Patient is awake, thrashing, and agitated. skin is intact. bilateral upper extremity restraints. Vascular circulation check within normal limits. sitter is bedside for safety. bed in lowest position and call light is within reach.
[2018-12-23] MEDS: VANCOMYCIN 1GM/250ML 250 ML IV SCH (11:04)
[2018-12-23] MEDS: AMIODARONE HCL 200 MG TAB PO SCH (11:04)
[2018-12-23] MEDS: PANTOPRAZOLE 40 MG/10 ML VIAL IV SCH (11:10)
[2018-12-23] MEDS ORDERED: POTASSIUM PHOSPHATE 44 MEQ in D5W 5% 250 ML IV ONE (12:00)
--- NOTE | 2018-12-23 12:00 | NUR ---
restraints assessment. Patient still mildly agitated. Following commands now. Circulation in the hands is normal. skin is dry but intact. will continue to monitor restraints.
[2018-12-23 13:00] VITALS: BP 141/74
--- NOTE | 2018-12-23 14:45 | NUR ---
restraints Patient does not follow commands. Patient is thrashing, agitated, and trying to get out of bed. Patient is on bilateral restraints. Vascular status checked and WNL. Skin is intact. Addendum: 12/23/18 at 1448 by Josie Arriaga RN enter time error for 0200
--- NOTE | 2018-12-23 16:00 | NUR ---
patient's restraints removed. Patient transferred to chair. following commands and has a calm affect. will continue to monitor for any issues while she has her restraints off.
[2018-12-23 17:00] VITALS: BP 122/68
[2018-12-23 17:11] VITALS: BP 141/74
[2018-12-23 18:17] LABS: Calcium 7.3 mg/dL (8.5-10.1); Potassium 3.1 mmol/L (3.5-5.1)
[2018-12-23 18:19] LABS: BUN/Creatinine Ratio 24.4
--- NOTE | 2018-12-23 19:40 | NUR ---
Discharge instructions given as ordered. Encourage to follow up with PMD as instructed. All questions and concerns addressed. Patient verbalized understanding. IV removed with catheter intact, pressure dressing applied, negrete catheter removed and wound pictures taken. Telemetry unit returned to [facility]. Patient taken to vehicle via wheelchair with all personal belongings, accompanied by staff and family member. No distress noted at time of departure.
[2018-12-23] MEDS ORDERED: PPN PER PHARMACY IV NR ×9 (20:00)
== END 2018-12-23 19:40 | disposition home or self-care (01) | DRG 720 ==
LOC: ER 11:44 → TELE 18:42 → TELE-CENTR 11-29 01:09 → TELE-EAST 12-03 05:43 → TELE-WESTW 12-14 18:37
PROVIDERS: ADMIT Internal Medicine; ATTEND Internal Medicine
PROC: 0T903ZZ Drainage of Right Kidney, Percutaneous Approach (ICD-10-PCS; principal; 2018-11-29)
PROC: BT1D1ZZ Fluoroscopy of Right Kidney, Ureter and Bladder using Low Osmolar Contrast (ICD-10-PCS; 2018-11-29)
PROC: 0D9670Z Drainage of Stomach with Drainage Device, Via Natural or Artificial Opening (ICD-10-PCS; 2018-12-08)
PROC: 5A09357 Assistance with Respiratory Ventilation, Less than 24 Consecutive Hours, Continuous Positive Airway Pressure (ICD-10-PCS; 2018-12-13)
PROC: 02HV33Z Insertion of Infusion Device into Superior Vena Cava, Percutaneous Approach (ICD-10-PCS; 2018-12-19)
DX: A41.02 Sepsis due to Methicillin resistant Staphylococcus aureus (principal); N17.0 Acute kidney failure with tubular necrosis; I26.99 Other pulmonary embolism without acute cor pulmonale; I63.512 Cerebral infarction due to unspecified occlusion or stenosis of left middle cerebral artery; K72.00 Acute and subacute hepatic failure without coma; D68.69 Other thrombophilia; E83.39 Other disorders of phosphorus metabolism; N18.3 Chronic kidney disease, stage 3 (moderate); D68.4 Acquired coagulation factor deficiency; E44.0 Moderate protein-calorie malnutrition; I48.91 Unspecified atrial fibrillation; G92 Toxic encephalopathy; I50.21 Acute systolic (congestive) heart failure; I48.92 Unspecified atrial flutter; E86.0 Dehydration; N13.6 Pyonephrosis; F15.10 Other stimulant abuse, uncomplicated; R31.9 Hematuria, unspecified; F41.1 Generalized anxiety disorder; E87.6 Hypokalemia; E87.0 Hyperosmolality and hypernatremia; F17.210 Nicotine dependence, cigarettes, uncomplicated; N14.1 Nephropathy induced by other drugs, medicaments and biological substances; Z93.6 Other artificial openings of urinary tract status; F15.129 Other stimulant abuse with intoxication, unspecified; D64.9 Anemia, unspecified; I31.3 Pericardial effusion (noninflammatory); I42.9 Cardiomyopathy, unspecified; J98.11 Atelectasis; T50.8X5A Adverse effect of diagnostic agents, initial encounter; D69.6 Thrombocytopenia, unspecified; E87.1 Hypo-osmolality and hyponatremia; I08.1 Rheumatic disorders of both mitral and tricuspid valves; G81.91 Hemiplegia, unspecified affecting right dominant side; R56.9 Unspecified convulsions; I13.0 Hypertensive heart and chronic kidney disease with heart failure and stage 1 through stage 4 chronic kidney disease, or unspecified chronic kidney disease; J32.0 Chronic maxillary sinusitis; R47.01 Aphasia; Z78.1 Physical restraint status; Y92.89 Other specified places as the place of occurrence of the external cause; Z79.01 Long term (current) use of anticoagulants; Z79.899 Other long term (current) drug therapy; Z80.0 Family history of malignant neoplasm of digestive organs; Z80.49 Family history of malignant neoplasm of other genital organs; Z80.3 Family history of malignant neoplasm of breast; Z86.73 Personal history of transient ischemic attack (TIA), and cerebral infarction without residual deficits; Z68.32 Body mass index [BMI] 32.0-32.9, adult
CPT/HCPCS: 36415; 36569; 36600; 50430; 70450; 71045; 71275; 74176; 74181; 74425; 76700; 76775; 76942; 80048; 80053; 80061; 80076; 80202; 80307; 81001; 81025; 82040; 82140; 82150; 82270; 82550; 82570; 82805; 82962; 83516; 83605; 83690; 83735; 83930; 83935; 84100; 84156; 84300; 84439; 84443; 84478; 84484; 85025; 85379; 85610; 85652; 85730; 86141; 86225; 86235; 86704; 86706; 86708; 86803; 87040; 87077; 87081; 87086; 87186; 87205; 87340; 90674; 93005; 93306; 93886; 94640; 94660; 94761; 96361; 96365; 96375; 99152; A4565; A6257; C9113; G0378; J0153; J0696; J1815; J2250; J2405; J3480; J7042; J7060